=== PATIENT | male | born 1945 | race Caucasian/White ===

== ENCOUNTER 2017-09-27 21:18 | Inpatient (IN) | payer MEDICARE, BC ==
[2017-09-27] MEDS ORDERED: IBUPROFEN 600 MG TAB PO STA (21:46)
[2017-09-27] MEDS ORDERED: IPRATROPIUM-ALBUTEROL 3 ML NEB INHALATION STA (21:46)
[2017-09-27] MEDS ORDERED: ACETAMINOPHEN TAB 500 MG TAB PO STA (21:46)
[2017-09-27] MEDS ORDERED: methylPREDNISolone SOD SUCCI 125 MG/2 ML VIAL IV STA (21:46)
--- NOTE | 2017-09-27 21:51 | ED ---
General Adult HPI - General Chief complaint: Shortness of Breath Stated complaint: SOB Time Seen by Provider: 09/27/17 21:20 Source: patient, RN notes reviewed Mode of arrival: wheelchair Limitations: no limitations - History of Present Illness Initial comments: This is a 72-year-old male who presents emergency Department complaining of difficulty breathing. Patient states it started last night and got progressively worse per patient states he normally has no issues with breathing he denies any history of COPD or congestive heart failure. Patient states she did not get the flu shot this year. Patient states he has felt very hot at times and also chilled at times. Patient denies any chest pain or palpitations. Patient denies coughing up any sputum. Patient denies abdominal pain patient denies nausea vomiting diarrhea. Patient denies headache patient denies numbness weakness per patient denies lightheadedness dizziness or near syncopal episode. Patient denies any dysuria hematuria or urinary frequency. - Related Data Home Medications Medication Instructions Recorded Confirmed Allopurinol [Zyloprim] 150 mg PO DAILY 12/28/13 07/29/16 Aspirin 325 mg PO DAILY 12/28/13 07/29/16 Dorzolamide HCl 1 drop BOTH EYES BID 12/28/13 07/29/16 Ferrous Sulfate [Feosol] 325 mg PO DAILY 12/28/13 07/29/16 Latanoprost Ophth [Xalatan 0.005%] 1 drop BOTH EYES HS 12/28/13 07/29/16 Multivitamin 50 Plus 1 tab PO DAILY 12/28/13 07/29/16 Omeprazole [PriLOSEC] 20 mg PO DAILY 12/28/13 07/29/16 Simvastatin [Zocor] 80 mg PO DAILY 12/28/13 07/29/16 Timolol [Betimol 0.5% Ophth Soln] 1 drop LEFT EYE DAILY 12/28/13 07/29/16 Atenolol [Tenormin] 50 mg PO DAILY 11/11/14 07/29/16 Hydrochlorothiazide 25 mg PO DAILY 11/11/14 07/29/16 Isosorbide Mononitrate [Isosorbide 30 mg PO DAILY 11/11/14 07/29/16 Mononitrate ER] Fish Oil 3,000 mg PO DAILY 03/05/15 07/29/16 Insulin Glargine [Lantus] 25 unit SQ DAILY 03/05/15 10/04/15 Losartan [Cozaar] 25 mg PO DAILY 03/05/15 07/29/16 Insulin Glargine [Lantus] 30 unit SQ DAILY@1800 07/29/16 07/29/16 glipiZIDE [Glucotrol] 10 mg PO DAILY 07/29/16 07/29/16 Allergies Allergy/AdvReac Type Severity Reaction Status Date / Time No Known Allergies Allergy Verified 09/27/17 21:39 Review of Systems ROS Statement: Those systems with pertinent positive or pertinent negative responses have been documented in the HPI. ROS Other: All systems not noted in ROS Statement are negative. Past Medical History Past Medical History: Heart Failure, Diabetes Mellitus, GERD/Reflux, Hypertension, Myocardial Infarction ([place]), Pneumonia, Prostate Disorder, Renal Disease Additional Past Medical History / Comment(s): UTI's Last Myocardial Infarction Date:: 2004 History of Any Multi-Drug Resistant Organisms: None Reported Past Surgical History: Heart Catheterization, Pacemaker Additional Past Surgical History / Comment(s): shonna cataract surgery Past Anesthesia/Blood Transfusion Reactions: No Reported Reaction Type of Cardiac Device: Permanent Pacemaker Device Placement Date:: 12/2013 Past Psychological History: No Psychological Hx Reported Smoking Status: Former smoker Past Alcohol Use History: None Reported Past Drug Use History: None Reported - Past Family History Father Family Medical History: Coronary Artery Disease (CAD), Myocardial Infarction ([place] ) Mother Family Medical History: Diabetes Mellitus General Exam - General Exam Comments Initial Comments: GENERAL: Patient is well-developed and well-nourished. Patient is nontoxic and well- hydrated and is in mild distress. ENT: Neck is soft and supple. No significant lymphadenopathy is noted. Oropharynx is clear. Moist mucous membranes. Neck has full range of motion without eliciting any pain. EYES: The sclera were anicteric and conjunctiva were pink and moist. Extraocular movements were intact and pupils were equal round and reactive to light. Eyelids were unremarkable. PULMONARY: Patient is a very wheezing diffusely CARDIOVASCULAR: There is a regular rate and rhythm without any murmurs gallops or rubs. ABDOMEN: Soft and nontender with normal bowel sounds. No palpable organomegaly was noted. There is no palpable pulsatile mass. SKIN: Skin is clear with no lesions or rashes and otherwise unremarkable. NEUROLOGIC: Patient is alert and oriented x3. Cranial nerves II through XII are grossly intact. Motor and sensory are also intact. Normal speech, volume and content. Symmetrical smile. MUSCULOSKELETAL: Normal extremities with adequate strength and full range of motion. No lower extremity swelling or edema. No calf tenderness. LYMPHATICS: No significant lymphadenopathy is noted PSYCHIATRIC: Normal psychiatric evaluation. Normal interpersonal interactions appears functionally intact in deals appropriately with others. No signs of depression. No signs of anxiety. Limitations: no limitations Course Vital Signs 09/27/17 09/27/17 09/27/17 21:35 22:11 22:19 Temperature 102.6 F H Pulse Rate 99 93 95 Respiratory 28 H 20 18 Rate Blood Pressure 182/81 O2 Sat by Pulse 90 L Oximetry Medical Decision Making - Medical Decision Making EKG shows a paced rhythm at 101 bpm AK interval is 198 QRS is 132 QT interval 388 QTC is 503. Patient's EKG has a lot of artifact in lead V6 Chest x-ray shows a left lower lobe pneumonia. I gave the patient Levaquin. X- ray also showed some possible early pulmonary edema so the patient received 20 mg of Lasix I spoke with Dr. Rei Minaya he agreed to admit the patient admitted the patient wrote admitting orders - Lab Data Result diagrams: 09/27/17 22:07 09/27/17 22:07 Lab Results 09/27/17 09/27/17 09/27/17 Range/Units 21:49 22:07 22:07 WBC 13.5 H (3.8-10.6) k/uL RBC 4.09 L (4.30-5.90) m/uL Hgb 11.7 L (13.0-17.5) gm/dL Hct 38.2 L (39.0-53.0) % MCV 93.2 (80.0-100.0) fL MCH 28.5 (25.0-35.0) pg MCHC 30.6 L (31.0-37.0) g/dL RDW 14.5 (11.5-15.5) % Plt Count 212 (150-450) k/uL Neutrophils % 76 % Lymphocytes % 14 % Monocytes % 5 % Eosinophils % 4 % Basophils % 0 % Neutrophils # 10.2 H (1.3-7.7) k/uL Lymphocytes # 1.9 (1.0-4.8) k/uL Monocytes # 0.7 (0-1.0) k/uL Eosinophils # 0.5 (0-0.7) k/uL Basophils # 0.0 (0-0.2) k/uL PT (9.0-12.0) sec INR (<1.2) APTT (22.0-30.0) sec Sodium (137-145) mmol/L Potassium (3.5-5.1) mmol/L Chloride (98-107) mmol/L Carbon Dioxide (22-30) mmol/L Anion Gap mmol/L BUN (9-20) mg/dL Creatinine (0.66-1.25) mg/dL Est GFR (MDRD) Af Amer (>60 ml/min/1.73 sqM) Est GFR (MDRD) Non-Af (>60 ml/min/1.73 sqM) Glucose (74-99) mg/dL Plasma Lactic Acid David (0.7-2.0) mmol/L Calcium (8.4-10.2) mg/dL Total Bilirubin (0.2-1.3) mg/dL AST (17-59) U/L ALT (21-72) U/L Alkaline Phosphatase (38-126) U/L Total Creatine Kinase 73 (55-170) U/L CK-MB (CK-2) 1.8 (0.0-2.4) ng/mL CK-MB (CK-2) Rel Index 2.5 Troponin I 0.035 H* (0.000-0.034) ng/mL Total Protein (6.3-8.2) g/dL Albumin (3.5-5.0) g/dL Urine Color Light Yellow Urine Appearance Clear (Clear) Urine pH 6.5 (5.0-8.0) Ur Specific Shepherd 1.007 (1.001-1.035) Urine Protein Negative (Negative) Urine Glucose (UA) Negative (Negative) Urine Ketones Negative (Negative) Urine Blood Negative (Negative) Urine Nitrite Negative (Negative) Urine Bilirubin Negative (Negative) Urine Urobilinogen <2.0 (<2.0) mg/dL Ur Leukocyte Esterase Small H (Negative) Urine RBC 2 (0-5) /hpf Urine WBC 5 (0-5) /hpf Ur Squamous Epith Cells <1 (0-4) /hpf Urine Bacteria Moderate H (None) /hpf Influenza Type A RNA (Not Detectd) Influenza Type B (PCR) (Not Detectd) 09/27/17 09/27/17 09/27/17 Range/Units 22:07 22:07 22:07 WBC (3.8-10.6) k/uL RBC (4.30-5.90) m/uL Hgb (13.0-17.5) gm/dL Hct (39.0-53.0) % MCV (80.0-100.0) fL MCH (25.0-35.0) pg MCHC (31.0-37.0) g/dL RDW (11.5-15.5) % Plt Count (150-450) k/uL Neutrophils % % Lymphocytes % % Monocytes % % Eosinophils % % Basophils % % Neutrophils # (1.3-7.7) k/uL Lymphocytes # (1.0-4.8) k/uL Monocytes # (0-1.0) k/uL Eosinophils # (0-0.7) k/uL Basophils # (0-0.2) k/uL PT 9.5 (9.0-12.0) sec INR 1.0 (<1.2) APTT 22.5 (22.0-30.0) sec Sodium 145 (137-145) mmol/L Potassium 4.5 (3.5-5.1) mmol/L Chloride 105 (98-107) mmol/L Carbon Dioxide 28 (22-30) mmol/L Anion Gap 12 mmol/L BUN 21 H (9-20) mg/dL Creatinine 1.40 H (0.66-1.25) mg/dL Est GFR (MDRD) Af Amer >60 (>60 ml/min/1.73 sqM) Est GFR (MDRD) Non-Af 50 (>60 ml/min/1.73 sqM) Glucose 163 H (74-99) mg/dL Plasma Lactic Acid David 1.2 (0.7-2.0) mmol/L Calcium 9.3 (8.4-10.2) mg/dL Total Bilirubin 0.3 (0.2-1.3) mg/dL AST 23 (17-59) U/L ALT 40 (21-72) U/L Alkaline Phosphatase 71 (38-126) U/L Total Creatine Kinase (55-170) U/L CK-MB (CK-2) (0.0-2.4) ng/mL CK-MB (CK-2) Rel Index Troponin I (0.000-0.034) ng/mL Total Protein 6.4 (6.3-8.2) g/dL Albumin 4.1 (3.5-5.0) g/dL Urine Color Urine Appearance (Clear) Urine pH (5.0-8.0) Ur Specific Shepherd (1.001-1.035) Urine Protein (Negative) Urine Glucose (UA) (Negative) Urine Ketones (Negative) Urine Blood (Negative) Urine Nitrite (Negative) Urine Bilirubin (Negative) Urine Urobilinogen (<2.0) mg/dL Ur Leukocyte Esterase (Negative) Urine RBC (0-5) /hpf Urine WBC (0-5) /hpf Ur Squamous Epith Cells (0-4) /hpf Urine Bacteria (None) /hpf Influenza Type A RNA (Not Detectd) Influenza Type B (PCR) (Not Detectd) 09/27/17 Range/Units 22:20 WBC (3.8-10.6) k/uL RBC (4.30-5.90) m/uL Hgb (13.0-17.5) gm/dL Hct (39.0-53.0) % MCV (80.0-100.0) fL MCH (25.0-35.0) pg MCHC (31.0-37.0) g/dL RDW (11.5-15.5) % Plt Count (150-450) k/uL Neutrophils % % Lymphocytes % % Monocytes % % Eosinophils % % Basophils % % Neutrophils # (1.3-7.7) k/uL Lymphocytes # (1.0-4.8) k/uL Monocytes # (0-1.0) k/uL Eosinophils # (0-0.7) k/uL Basophils # (0-0.2) k/uL PT (9.0-12.0) sec INR (<1.2) APTT (22.0-30.0) sec Sodium (137-145) mmol/L Potassium (3.5-5.1) mmol/L Chloride (98-107) mmol/L Carbon Dioxide (22-30) mmol/L Anion Gap mmol/L BUN (9-20) mg/dL Creatinine (0.66-1.25) mg/dL Est GFR (MDRD) Af Amer (>60 ml/min/1.73 sqM) Est GFR (MDRD) Non-Af (>60 ml/min/1.73 sqM) Glucose (74-99) mg/dL Plasma Lactic Acid Davdi (0.7-2.0) mmol/L Calcium (8.4-10.2) mg/dL Total Bilirubin (0.2-1.3) mg/dL AST (17-59) U/L ALT (21-72) U/L Alkaline Phosphatase (38-126) U/L Total Creatine Kinase (55-170) U/L CK-MB (CK-2) (0.0-2.4) ng/mL CK-MB (CK-2) Rel Index Troponin I (0.000-0.034) ng/mL Total Protein (6.3-8.2) g/dL Albumin (3.5-5.0) g/dL Urine Color Urine Appearance (Clear) Urine pH (5.0-8.0) Ur Specific Shepherd (1.001-1.035) Urine Protein (Negative) Urine Glucose (UA) (Negative) Urine Ketones (Negative) Urine Blood (Negative) Urine Nitrite (Negative) Urine Bilirubin (Negative) Urine Urobilinogen (<2.0) mg/dL Ur Leukocyte Esterase (Negative) Urine RBC (0-5) /hpf Urine WBC (0-5) /hpf Ur Squamous Epith Cells (0-4) /hpf Urine Bacteria (None) /hpf Influenza Type A RNA Not Detected (Not Detectd) Influenza Type B (PCR) Not Detected (Not Detectd) Disposition Clinical Impression: Pneumonia, Bronchospasm, Acute pulmonary edema, Elevated troponin Disposition: ADMITTED IP TO THIS HOSP Referrals: Michael Cano DO [Primary Care Provider] - 1-2 days Time of Disposition: 23:12
[2017-09-27 22:30] LABS: ALT 40 U/L (21-72); AST 23 U/L (17-59); Albumin 4.1 g/dL (3.5-5.0); Alkaline Phosphatase 71 U/L (38-126); Anion Gap 12 mmol/L; Blood Urea Nitrogen 21 mg/dL (9-20); Calcium 9.3 mg/dL (8.4-10.2); Carbon Dioxide 28 mmol/L (22-30); Chloride 105 mmol/L (98-107); Glucose 163 mg/dL (74-99); Potassium 4.5 mmol/L (3.5-5.1); Sodium 145 mmol/L (137-145); Total Bilirubin 0.3 mg/dL (0.2-1.3); Total Protein 6.4 g/dL (6.3-8.2)
[2017-09-27] MEDS: SODIUM CHLORIDE 0.9% 500 ML IV SCH (22:32)
[2017-09-27 22:34] LABS: Partial Thromboplastin Time 22.5 sec (22.0-30.0); Prothrombin Time 9.5 sec (9.0-12.0)
[2017-09-27 22:46] LABS: Appearance,Urine Clear (Clear); Bacteria,Urine Moderate /hpf; Bilirubin,Urine Negative (Negative); Blood,Urine Negative (Negative); Color,Urine Light Yellow; Glucose,Urine (UA) Negative (Negative); Ketones,Urine Negative (Negative); Leukocyte Esterase,Urine Small (Negative); Nitrite,Urine Negative (Negative); PH, Urine 6.5 (5.0-8.0); Protein,Urine Negative (Negative); RBC,Urine 2 /hpf (0-5); Specific Gravity,Urine 1.007 (1.001-1.035); Squamous Epithelial Cell,Urine <1 /hpf (0-4); Urobilinogen,Urine <2.0 mg/dL (<2.0); WBC,Urine 5 /hpf (0-5)
[2017-09-27 22:48] LABS: Basophils % (A) 0 %; Eosinophils # (A) 0.5 k/uL (0-0.7); Eosinophils % (A) 4 %; HCT 38.2 % (39.0-53.0); HGB 11.7 gm/dL (13.0-17.5); Lymphocytes # (A) 1.9 k/uL (1.0-4.8); Lymphocytes % (A) 14 %; MCH 28.5 pg (25.0-35.0); MCHC 30.6 g/dL (31.0-37.0); MCV 93.2 fL (80.0-100.0); Monocytes # (A) 0.7 k/uL (0-1.0); Monocytes % (A) 5 %; Neutrophils # (A) 10.2 k/uL (1.3-7.7); Neutrophils % (A) 76 %; Platelet Count 212 k/uL (150-450); RBC 4.09 m/uL (4.30-5.90); RDW 14.5 % (11.5-15.5); WBC 13.5 k/uL (3.8-10.6)
[2017-09-27 22:53] LABS: Creatine Kinase MB 1.8 ng/mL (0.0-2.4)
[2017-09-27 22:58] LABS: Troponin I 0.035 ng/mL (0.000-0.034)
--- NOTE | 2017-09-27 23:01 | XR ---
EXAMINATION TYPE: XR chest 2V DATE OF EXAM: 09/27/2017 COMPARISON: 07/29/2016 HISTORY: Chest pain TECHNIQUE: Frontal and lateral views of the chest are obtained. FINDINGS: There is coarsening of pulmonary interstitial markings. Heart is top normal in size. There is left axillary pacemaker with the lead tips in right ventricle. There is slight blunting of left c ostophrenic angle. Thoracic aorta is atheromatous. Bony thorax is intact. IMPRESSION: There is new pulmonary interstitial edema compared to old exam and small left pleural ef fusion. This could relate to congestive heart failure. Interstitial pneumonia is possible.
[2017-09-27] MEDS ORDERED: LEVOFLOXACIN 750MG-D5W PMX 750 MG in DEXTROSE/WATER 1 150ML.BAG IVPB STA (23:10)
[2017-09-27] MEDS ORDERED: FUROSEMIDE 10 MG/ML 2 ML VIAL IV ONE (23:10)
[2017-09-27] MEDS ORDERED: PNEUMONIA PROTOCOL UTILIZED 1 EACH MISC PO PRN (23:12)
[2017-09-28 01:05] VITALS: BMI 32.2
[2017-09-28] MEDS: SODIUM CHLORIDE 0.9% 500 ML IV SCH (03:17)
[2017-09-28 06:39] LABS: Glucose,Whole Blood 297 mg/dL (75-99)
[2017-09-28] MEDS: methylPREDNISolone SOD SUCCI 125 MG/2 ML VIAL IV SCH ×2 (06:44→12:02)
--- NOTE | 2017-09-28 07:58 | XR ---
EXAMINATION TYPE: XR chest 2V DATE OF EXAM: 09/28/2017 HISTORY: pneumonia. REFERENCE: Previous study dated 09/27/2017. FINDINGS: There is a bipolar pacemaker place on the left. The lungs are overinflated. The heart is normal in size. There are diffuse increased markings. These have partially resolved. Vascular congestion has improved. I suspect a small left effusion. IMPRESSION: IMPROVING CHANGES OF CONGESTIVE HEART FAILURE.
[2017-09-28] MEDS: ATENOLOL 50 MG TAB PO SCH (08:05)
[2017-09-28] MEDS: glipiZIDE 10 MG TAB PO SCH (10:24)
[2017-09-28] MEDS: ALBUTEROL NEBULIZED 2.5 MG/3 ML INHALATION SCH ×4 (11:10→22:04)
--- NOTE | 2017-09-28 11:27 | P.CRDCN ---
History of Present Illness Consult date: 09/28/17 History of present illness: This is a 72-year-old gentleman with history of permanent pacemaker implantation , diabetes mellitus and also chronic kidney disease, hypertension and dyslipidemia who came to the hospital with complaints of shortness of breath and also fever and chills with a temperature up to 101 last night. Patient has mild cough. Denied any upper respiratory infections or congestion. Denies any chest pain. Patient is feeling much better today. His white count is mildly elevated. His troponins are mildly elevated but not consistent with acute myocardial injury pattern. His EKG showed pacemaker rhythm. Chest x-ray showed evidence of possible mild CHF. His BNP is elevated. But he seemed to be comfortable and doesn't complain of any orthopnea and proximal dyspnea. His lungs showed some diminished breath sounds at bases. Heart is regular. He is being treated for possible pneumonia. He may have mild CHF based on diastolic dysfunction . We'll get an echocardiogram done. The rest of the medication to be continued. We'll also add small dose of diuretic Past Medical History Past Medical History: Heart Failure, Diabetes Mellitus, GERD/Reflux, Hypertension, Myocardial Infarction ([place]), Pneumonia, Prostate Disorder, Renal Disease Additional Past Medical History / Comment(s): UTI's; glaucoma Last Myocardial Infarction Date:: 2004 History of Any Multi-Drug Resistant Organisms: None Reported Past Surgical History: Heart Catheterization, Pacemaker Additional Past Surgical History / Comment(s): shonna cataract surgery Past Anesthesia/Blood Transfusion Reactions: No Reported Reaction Type of Cardiac Device: Permanent Pacemaker Device Placement Date:: 12/2013 Past Psychological History: No Psychological Hx Reported Smoking Status: Former smoker Past Alcohol Use History: None Reported Past Drug Use History: None Reported - Past Family History Father Family Medical History: Coronary Artery Disease (CAD), Myocardial Infarction ([place] ) Mother Family Medical History: Diabetes Mellitus Medications and Allergies Home Medications Medication Instructions Recorded Confirmed Type Allopurinol [Zyloprim] 150 mg PO DAILY 12/28/13 09/28/17 History Aspirin 325 mg PO DAILY 12/28/13 09/28/17 History Dorzolamide HCl 1 drop BOTH EYES BID 12/28/13 09/28/17 History Ferrous Sulfate [Feosol] 648 mg PO DAILY 12/28/13 09/28/17 History Latanoprost Ophth [Xalatan 0.005%] 1 drop BOTH EYES HS 12/28/13 09/28/17 History Multivitamin 50 Plus 1 tab PO DAILY 12/28/13 09/28/17 History Omeprazole [PriLOSEC] 20 mg PO DAILY 12/28/13 09/28/17 History Simvastatin [Zocor] 80 mg PO DAILY 12/28/13 09/28/17 History Timolol [Betimol 0.5% Ophth Soln] 1 drop LEFT EYE BID 12/28/13 09/28/17 History Atenolol [Tenormin] 50 mg PO DAILY 11/11/14 09/28/17 History Hydrochlorothiazide 25 mg PO DAILY 11/11/14 09/28/17 History Isosorbide Mononitrate [Isosorbide 30 mg PO DAILY 11/11/14 09/28/17 History Mononitrate ER] Fish Oil 3,000 mg PO DAILY 03/05/15 09/28/17 History Losartan [Cozaar] 25 mg PO DAILY 03/05/15 09/28/17 History Insulin Glargine [Lantus] 40 unit SQ DAILY@1800 07/29/16 09/28/17 History glipiZIDE [Glucotrol] 10 mg PO DAILY 07/29/16 09/28/17 History glipiZIDE [Glucotrol] 5 mg PO DAILY@1800 09/28/17 09/28/17 History Allergies Allergy/AdvReac Type Severity Reaction Status Date / Time No Known Allergies Allergy Verified 09/28/17 08:17 Physical Exam Vitals: Vital Signs Temp Pulse Pulse Resp BP BP Pulse Ox 09/28/17 08:00 75 18 09/28/17 07:56 97.7 F 75 18 165/73 94 L 09/28/17 04:00 97.0 F L 80 17 158/70 92 L 09/27/17 23:53 101.7 F H 94 20 162/72 92 L 09/27/17 23:35 99.1 F 90 18 167/74 95 09/27/17 23:12 93 L 09/27/17 22:50 93 20 177/78 92 L 09/27/17 22:19 95 18 09/27/17 22:11 93 20 09/27/17 21:35 102.6 F H 99 28 H 182/81 90 L Intake and Output 0209/28/17 09/28/17 22:59 06:59 14:59 Intake Total 160 Balance 160 Intake: IV 160 0.9 @20 160 Other: Voiding Method Toilet # Voids 1 Weight 88.451 kg 96.1 kg GENERAL EXAM: Patient is alert and oriented and doesn't appear to be in any acute distress HEENT: Normocephalic. Normal reaction of pupils, equal size, normal range of extraocular motion. No erythema or exudates in the throat. NECK: No masses, no nuchal rigidity. CHEST: No chest wall deformity. LUNGS: Diminished breath sounds at bases HEART: S1 and S2 normal with no audible mumurs or gallops. Regular rhythm, femorals equal on both sides.. ABDOMEN: No hepatosplenomegaly, normal bowel sounds, no guarding or rigidity. SKIN: No rashes CENTRAL NERVOUS SYSTEM: No focal deficits. EXTREMITIES: No cyanosis, clubbing or edema. Results 09/27/17 22:07 09/27/17 22:07 Cardiac Enzymes 09/27/17 09/27/17 09/28/17 Range/Units 22:07 22:07 04:47 AST 23 (17-59) U/L CK-MB (CK-2) 1.8 (0.0-2.4) ng/mL Troponin I 0.035 H* 0.043 H* (0.000-0.034) ng/mL Coagulation 09/27/17 Range/Units 22:07 PT 9.5 (9.0-12.0) sec APTT 22.5 (22.0-30.0) sec CBC 09/27/17 Range/Units 22:07 WBC 13.5 H (3.8-10.6) k/uL RBC 4.09 L (4.30-5.90) m/uL Hgb 11.7 L (13.0-17.5) gm/dL Hct 38.2 L (39.0-53.0) % Plt Count 212 (150-450) k/uL Comprehensive Metabolic Panel 09/27/17 Range/Units 22:07 Sodium 145 (137-145) mmol/L Potassium 4.5 (3.5-5.1) mmol/L Chloride 105 (98-107) mmol/L Carbon Dioxide 28 (22-30) mmol/L BUN 21 H (9-20) mg/dL Creatinine 1.40 H (0.66-1.25) mg/dL Glucose 163 H (74-99) mg/dL Calcium 9.3 (8.4-10.2) mg/dL AST 23 (17-59) U/L ALT 40 (21-72) U/L Alkaline Phosphatase 71 (38-126) U/L Total Protein 6.4 (6.3-8.2) g/dL Albumin 4.1 (3.5-5.0) g/dL Current Medications Generic Name Dose Route Start Last Admin Trade Name Freq PRN Reason Stop Dose Admin Albuterol Sulfate 2.5 mg 09/28/17 08:00 Ventolin Nebulized INHALATION RT-QID EDITH Atenolol 50 mg 09/28/17 09:00 09/28/17 08:05 Tenormin PO 50 mg DAILY [facility] Administration Glipizide 10 mg 09/28/17 09:45 09/28/17 10:24 Glucotrol PO 10 mg [id number] [facility] Administration Glipizide 5 mg 09/28/17 18:00 Glucotrol PO DAILY@1800 [facility] Levofloxacin 750 mg/ IV 150 mls @ 100 mls/hr 09/28/17 21:00 Solution IVPB HS [facility] Insulin Aspart 0 unit 09/28/17 12:30 Novolog SQ ACHS [facility] Protocol Methylprednisolone Sodium Succinate 60 mg 09/28/17 06:00 09/28/17 06:44 Solu-Medrol IV 60 mg Q6HR [facility]ITH Administration Miscellaneous Information 1 each 09/27/17 23:12 Pneumonia Protocol Utilized PO ONCE PRN Per Protocol Intake and Output 09/27/17 09/28/17 09/28/17 22:59 06:59 14:59 Intake Total 160 Balance 160 Intake: IV 160 0.9 @20 160 Other: Voiding Method Toilet # Voids 1 Weight 88.451 kg 96.1 kg 09/27/17 22:07 09/27/17 22:07 EKG Interpretations (text) Pacemaker rhythm Assessment and Plan (1) Diastolic CHF Current Visit: Yes Status: Acute Code(s): I50.30 - UNSPECIFIED DIASTOLIC ( CONGESTIVE) HEART FAILURE SNOMED Code(s): 973195009 (2) Elevated troponin Current Visit: Yes Status: Acute Code(s): R74.8 - ABNORMAL LEVELS OF OTHER SERUM ENZYMES SNOMED Code(s): 971454992 (3) Pneumonia Current Visit: Yes Status: Acute Code(s): J18.9 - PNEUMONIA, UNSPECIFIED ORGANISM SNOMED Code(s): 762052349 Plan: I will add small dose of diuretics along with beta lucía and KEATON inhibitor hours. We'll get an echocardiogram done. We'll follow Third troponin. Continue rest of the management. Further examination depend upon the clinical course
[2017-09-28] MEDS ORDERED: FUROSEMIDE 40 MG TAB PO STA (11:38)
[2017-09-28 11:47] LABS: Glucose,Whole Blood 287 mg/dL (75-99)
[2017-09-28] MEDS ORDERED: INSULIN ASPART 100 UNIT/ML 1 ML 10 ML VIAL SQ SCH (12:30)
[2017-09-28] MEDS: ISOSORBIDE MONONITRATE ER 30 MG TAB.ER.24H PO SCH (16:20)
[2017-09-28] MEDS: HYDROCHLOROTHIAZIDE 25 MG TAB PO SCH (16:21)
[2017-09-28 17:14] LABS: Glucose,Whole Blood 372 mg/dL (75-99)
[2017-09-28] MEDS: INSULIN ASPART 100 UNIT/ML 1 ML 10 ML VIAL SQ SCH ×3 (17:17→22:26)
[2017-09-28 17:58] LABS: Hemoglobin A1C 8.8 % (4.0-6.0)
[2017-09-28] MEDS ORDERED: INSULIN DETEMIR 100 UNIT/ML 10 ML VIAL SQ SCH (18:00)
[2017-09-28] MEDS ORDERED: glipiZIDE 5 MG TAB PO SCH (18:00)
[2017-09-28] MEDS ORDERED: LEVOFLOXACIN 750MG-D5W PMX 750 MG in DEXTROSE/WATER 1 150ML.BAG IVPB SCH (21:00)
[2017-09-28] MEDS ORDERED: LATANOPROST 0.005% OPHTH DROPS 2.5 ML BTL BOTH EYES SCH (21:00)
[2017-09-28] MEDS: TIMOLOL 0.5% OPHTH DROPS 5 ML BTL LEFT EYE SCH (21:01)
[2017-09-28] MEDS: DORZOLAMIDE HCL 2% DROPS 10 ML BTL BOTH EYES SCH (21:01)
[2017-09-28 21:16] LABS: Glucose,Whole Blood 332 mg/dL (75-99)
--- NOTE | 2017-09-28 22:11 | P.HPIM ---
History of Present Illness H&P Date: 09/28/17 Chief Complaint: Shortness of breath Patient is a 72-year-old male with a known history of permanent pacemaker placement, diabetes type 2, GERD, hypertension came to ER with complaints of difficulty breathing. Patient states that his symptoms started last night and got progressively get worse which made him come to ER. Patient also developed fever and also chills at home. otherwise patient denied any chest pain. Denied any cough or sputum production. No recent travel. No sick contacts at home. Denied any nausea vomiting or abdominal pain. No headache or dizziness. No dysuria or hematuria. Chest x-ray showed evidence of mild CHF. Left pleural effusion and small and new interstitial infiltrates/edema BNP 1730. Troponin 0.035 and 0.043 No history of COPD or CHF Review of Systems Constitutional: Does not have any fever. Did have chills at times at home . No generalized weakness or weight loss. Abdomen: Patient denied nausea vomiting and diarrhea and abdominal pain. Cardiovascular: Chest pain. Shortness of breath. No leg swelling Respiratory: patient denied any cough is from production. Patient has shortness of breath Neurologic: Patient denied any numbness or tingling headache. Musculoskeletal: Patient denies any complaints of joint swelling or deformity. Skin: Negative Psychiatric: Negative Endocrine: No heat or cold intolerance. No recent weight gain. Genitourinary: No dysuria or hematuria. All other 14 point ROS negative except the above Past Medical History Past Medical History: Heart Failure, Diabetes Mellitus, GERD/Reflux, Hypertension, Myocardial Infarction ([place]), Pneumonia, Prostate Disorder, Renal Disease Additional Past Medical History / Comment(s): UTI's; glaucoma Last Myocardial Infarction Date:: 2004 History of Any Multi-Drug Resistant Organisms: None Reported Past Surgical History: Heart Catheterization, Pacemaker Additional Past Surgical History / Comment(s): shonna cataract surgery Past Anesthesia/Blood Transfusion Reactions: No Reported Reaction Type of Cardiac Device: Permanent Pacemaker Device Placement Date:: 12/2013 Past Psychological History: No Psychological Hx Reported Smoking Status: Former smoker Past Alcohol Use History: None Reported Past Drug Use History: None Reported - Past Family History Father Family Medical History: Coronary Artery Disease (CAD), Myocardial Infarction ([place] ) Mother Family Medical History: Diabetes Mellitus Medications and Allergies Home Medications Medication Instructions Recorded Confirmed Type Allopurinol [Zyloprim] 150 mg PO DAILY 12/28/13 09/28/17 History Aspirin 325 mg PO DAILY 12/28/13 09/28/17 History Dorzolamide HCl 1 drop BOTH EYES BID 12/28/13 09/28/17 History Ferrous Sulfate [Feosol] 648 mg PO DAILY 12/28/13 09/28/17 History Latanoprost Ophth [Xalatan 0.005%] 1 drop BOTH EYES HS 12/28/13 09/28/17 History Multivitamin 50 Plus 1 tab PO DAILY 12/28/13 09/28/17 History Omeprazole [PriLOSEC] 20 mg PO DAILY 12/28/13 09/28/17 History Simvastatin [Zocor] 80 mg PO DAILY 12/28/13 09/28/17 History Timolol [Betimol 0.5% Ophth Soln] 1 drop LEFT EYE BID 12/28/13 09/28/17 History Atenolol [Tenormin] 50 mg PO DAILY 11/11/14 09/28/17 History Hydrochlorothiazide 25 mg PO DAILY 11/11/14 09/28/17 History Isosorbide Mononitrate [Isosorbide 30 mg PO DAILY 11/11/14 09/28/17 History Mononitrate ER] Fish Oil 3,000 mg PO DAILY 03/05/15 09/28/17 History Losartan [Cozaar] 25 mg PO DAILY 03/05/15 09/28/17 History Insulin Glargine [Lantus] 40 unit SQ DAILY@1800 07/29/16 09/28/17 History glipiZIDE [Glucotrol] 10 mg PO DAILY 07/29/16 09/28/17 History glipiZIDE [Glucotrol] 5 mg PO DAILY@1800 09/28/17 09/28/17 History Allergies Allergy/AdvReac Type Severity Reaction Status Date / Time No Known Allergies Allergy Verified 09/28/17 08:17 Physical Exam Vitals: Vital Signs Temp Pulse Pulse Resp BP BP Pulse Ox 09/28/17 15:10 18 09/28/17 14:40 98.2 F 73 18 173/84 95 09/28/17 11:42 17 09/28/17 11:26 92 09/28/17 11:13 98.8 F 72 17 124/94 99 09/28/17 11:11 92 09/28/17 08:00 75 18 09/28/17 07:56 97.7 F 75 18 165/73 94 L 09/28/17 04:00 97.0 F L 80 17 158/70 92 L 09/27/17 23:53 101.7 F H 94 20 162/72 92 L 09/27/17 23:35 99.1 F 90 18 167/74 95 09/27/17 23:12 93 L 09/27/17 22:50 93 20 177/78 92 L 09/27/17 22:19 95 18 09/27/17 22:11 93 20 09/27/17 21:35 102.6 F H 99 28 H 182/81 90 L Intake and Output 09/28/17 09/28/17 09/28/17 06:59 14:59 22:59 Intake Total 160 480 Output Total 300 Balance 160 180 Intake: IV 160 100 0.9 @20 160 100 Intake, IV Titration 150 Amount Levofloxacin 750Mg-D5w 150 Pmx 750 mg In Dextrose/ Water 1 150ml.bag @ 100 mls/hr IVPB HS [facility] Rx#: [id number] Oral 230 Output: Urine 300 Other: Voiding Method Toilet # Voids 1 1 Weight 96.1 kg PHYSICAL EXAMINATION: Patient is lying in the bed comfortably, no acute distress, awake alert and oriented.. HEENT: Normocephalic. Neck is supple. Pupils reactive. Nostrils clear. Oral cavity is moist. Ears reveal no drainage. Neck reveals no JVD, carotid bruits, or thyromegaly. CHEST EXAMINATION: Trachea is central. Symmetrical expansion. Right basilar crackles. No wheezing. No rhonchi. CARDIAC: Normal S1, S2 with no gallops. No murmurs ABDOMEN: Soft. Bowel sounds normal. No organomegaly. No abdominal bruits. Extremities: reveal no edema. No clubbing or cyanosis Neurologically awake, alert, oriented x3 with well-coordinated movements. No focal deficits noted Skin: No rash or skin lesions. Psychiatric: Coperative. Nonsuicidal Musculoskeletal: No joint swelling or deformity. Normal range of motion. Results CBC & Chem 7: 09/27/17 22:07 09/27/17 22:07 Labs: Abnormal Lab Results - Last 24 Hours (Table) 09/27/17 09/27/17 09/27/17 Range/Units 21:49 22:07 22:07 WBC 13.5 H (3.8-10.6) k/uL RBC 4.09 L (4.30-5.90) m/uL Hgb 11.7 L (13.0-17.5) gm/dL Hct 38.2 L (39.0-53.0) % MCHC 30.6 L (31.0-37.0) g/dL Neutrophils # 10.2 H (1.3-7.7) k/uL BUN (9-20) mg/dL Creatinine (0.66-1.25) mg/dL Glucose (74-99) mg/dL POC Glucose (mg/dL) (75-99) mg/dL Troponin I 0.035 H* (0.000-0.034) ng/mL Ur Leukocyte Esterase Small H (Negative) Urine Bacteria Moderate H (None) /hpf 09/27/17 09/28/17 09/28/17 Range/Units 22:07 04:47 06:24 WBC (3.8-10.6) k/uL RBC (4.30-5.90) m/uL Hgb (13.0-17.5) gm/dL Hct (39.0-53.0) % MCHC (31.0-37.0) g/dL Neutrophils # (1.3-7.7) k/uL BUN 21 H (9-20) mg/dL Creatinine 1.40 H (0.66-1.25) mg/dL Glucose 163 H (74-99) mg/dL POC Glucose (mg/dL) 297 H (75-99) mg/dL Troponin I 0.043 H* (0.000-0.034) ng/mL Ur Leukocyte Esterase (Negative) Urine Bacteria (None) /hpf 09/28/17 Range/Units 11:35 WBC (3.8-10.6) k/uL RBC (4.30-5.90) m/uL Hgb (13.0-17.5) gm/dL Hct (39.0-53.0) % MCHC (31.0-37.0) g/dL Neutrophils # (1.3-7.7) k/uL BUN (9-20) mg/dL Creatinine (0.66-1.25) mg/dL Glucose (74-99) mg/dL POC Glucose (mg/dL) 287 H (75-99) mg/dL Troponin I (0.000-0.034) ng/mL Ur Leukocyte Esterase (Negative) Urine Bacteria (None) /hpf Microbiology - Last 24 Hours (Table) 09/27/17 21:49 Urine Culture - Preliminary Urine,Catheterized Thrombosis Risk Factor Assmnt - DVT/VTE Prophylaxis DVT/VTE Prophylaxis: Pharmacologic Prophylaxis ordered - Choose All That Apply Other Risk Factors: Yes Each Risk Factor Represents 2 Points: Age 61-74 years Other congenital or acquired thrombophilia - If yes, enter type in comment: No Thrombosis Risk Factor Assessment Total Risk Factor Score: 2 Thrombosis Risk Factor Assessment Level: Low Risk Assessment and Plan Assessment: Acute CHF with possible diastolic dysfunction. Interstitial pneumonia Elevated troponin Hypertension Diabetes type 2 History of permanent pacemaker placement GERD Glaucoma History of UTIs Plan: Patient be converted on metoprolol and lisinopril and hydrochlorothiazide. Patient was given a dose of Lasix IV. Continue with antibiotics in the form of levofloxacin. We will continue the CBC monitoring. We will discontinue IV steroids at this time. No evidence of wheezing or history of COPD. 2-D echo was ordered. Cardiology is following. Continue home medications. and further recommendations based on the critical course. Time with Patient: Greater than 30
[2017-09-29 01:25] LABS: Glucose,Whole Blood 282 mg/dL (75-99)
[2017-09-29 06:04] LABS: Glucose,Whole Blood 233 mg/dL (75-99)
[2017-09-29] MEDS: glipiZIDE 10 MG TAB PO SCH (06:41)
[2017-09-29 06:42] VITALS: RESP 16
[2017-09-29] MEDS ORDERED: PANTOPRAZOLE 40 MG TABLET PO SCH (07:30)
[2017-09-29] MEDS: ALBUTEROL NEBULIZED 2.5 MG/3 ML INHALATION SCH ×2 (08:57→12:02)
[2017-09-29] MEDS ORDERED: ATORVASTATIN 40 MG TAB PO SCH (09:00)
[2017-09-29] MEDS ORDERED: ALLOPURINOL 100 MG TAB PO SCH (09:00)
[2017-09-29] MEDS ORDERED: ASPIRIN 325 MG TAB PO SCH (09:00)
[2017-09-29] MEDS ORDERED: LOSARTAN 25 MG TAB PO SCH (09:00)
[2017-09-29] MEDS: ATENOLOL 50 MG TAB PO SCH (09:06)
[2017-09-29] MEDS: HYDROCHLOROTHIAZIDE 25 MG TAB PO SCH (09:06)
[2017-09-29] MEDS: TIMOLOL 0.5% OPHTH DROPS 5 ML BTL LEFT EYE SCH (09:07)
[2017-09-29] MEDS: DORZOLAMIDE HCL 2% DROPS 10 ML BTL BOTH EYES SCH (09:07)
[2017-09-29] MEDS: ISOSORBIDE MONONITRATE ER 30 MG TAB.ER.24H PO SCH (09:07)
[2017-09-29] MEDS: INSULIN ASPART 100 UNIT/ML 1 ML 10 ML VIAL SQ SCH ×2 (09:11→12:19)
[2017-09-29 11:52] LABS: Glucose,Whole Blood 192 mg/dL (75-99)
[2017-09-29] MEDS ORDERED: FERROUS SULFATE 325 MG TAB PO SCH (12:00)
[2017-09-29 12:12] VITALS: BP 144/68; PULSE 62; TEMP 96.6
--- NOTE | 2017-09-29 13:33 | ECHOF ---
Referral Reason:Chest pain and cardiomyopathy MEASUREMENTS -------- HEIGHT: 172.7 cm WEIGHT: 95.7 kg BP: 132/70 RVIDd: 2.9 cm (< 3.3) IVSd: 1.6 cm (0.6 - 1.1) LVIDd: 4.3 cm (3.9 - 5.3) LVPWd: 1.6 cm (0.6 - 1.1) IVSs: 2.1 cm LVIDs: 2.8 cm LVPWs: 1.8 cm LAESV Index (A-L): 35.78 ml/m Ao Diam: 3.0 cm (2.0 - 3.7) AV Cusp: 1.2 cm (1.5 - 2.6) LA Diam: 3.6 cm (2.7 - 3.8) EPSS: 0.3 cm MV E Silas: 1.17 m/s MV DecT: 213 ms MV A Silas: 0.53 m/s MV E/A Ratio: 2.19 AV maxP.53 mmHg AV meanP.37 mmHg RAP: 15.00 mmHg RVSP: 53.37 mmHg MV EF SLOPE: 83.40 mm/s (70 - 150) MV EXCURSION: 1.85 cm (> 18.000) FINDINGS -------- Pacerwire seen in RV and RA. This was a technically adequate study. The left ventricular size is normal. There is moderate concentric left ventricular hypertrophy. O verall left ventricular systolic function is normal with, an EF between 55 - 60 %. The right ventricle is mildly enlarged. LA is moderately dilated 34-39 ml/m2 RA appears enlarged. There is mild aortic valve sclerosis. There is mild aortic regurgitation. There is mild aortic st enosis present. Peak/mean gradient across the Aortic Valve is 24.53mmHg / 15.37mmHg. Mild mitral annular calcification present. Moderate mitral regurgitation is present. Alsu-cj-sizgatec tricuspid regurgitation present. There is moderate pulmonary hypertension. The r ight ventricular systolic pressure, as measured by Doppler, is 53.37mmHg. Trace/mild (physiologic) pulmonic regurgitation. The aortic root size is normal. The inferior vena cava is dilated with poor inspiratory collapse which is consistent with estimated r ight atrial pressure of 20 mmHg. There is no pericardial effusion. CONCLUSIONS -------- 1. Pacerwire seen in RV and RA. 2. This was a technically adequate study. 3. The left ventricular size is normal. 4. There is moderate concentric left ventricular hypertrophy. 5. Overall left ventricular systolic function is normal with, an EF between 55 - 60 %. 6. The right ventricle is mildly enlarged. 7. LA is moderately dilated 34-39 ml/m2 8. RA appears enlarged. 9. There is mild aortic valve sclerosis. 10. There is mild aortic regurgitation. 11. There is mild aortic stenosis present. 12. Peak/mean gradient across the Aortic Valve is 24.53mmHg / 15.37mmHg. 13. Mild mitral annular calcification present. 14. Moderate mitral regurgitation is present. 15. Bglf-hr-cepgyykq tricuspid regurgitation present. 16. There is moderate pulmonary hypertension. 17. Trace/mild (physiologic) pulmonic regurgitation. 18. The aortic root size is normal. 19. The inferior vena cava is dilated with poor inspiratory collapse which is consistent with estimat ed right atrial pressure of 20 mmHg. 20. There is no pericardial effusion. MANAGER AREA: Larry An RDCS
--- NOTE | 2017-09-29 16:23 | P.PN ---
Subjective Progress Note Date: 09/29/17 This is a 72-year-old gentleman with history of permanent pacemaker implantation , diabetes mellitus and also chronic kidney disease, hypertension and dyslipidemia who came to the hospital with complaints of shortness of breath and also fever and chills with a temperature up to 101 last night. Patient has mild cough. Denied any upper respiratory infections or congestion. Denies any chest pain. Patient is feeling much better today. His white count is mildly elevated. His troponins are mildly elevated but not consistent with acute myocardial injury pattern. His EKG showed pacemaker rhythm. Chest x-ray showed evidence of possible mild CHF. His BNP was elevated. patient was diuresed with IV Lasix, he was seen and examined this morning, feels well, denies any difficulty in breathing. He has been up ambulating without any difficulty. Echocardiogram with Doppler study was reviewed, which revealed a normal left ventricular systolic function. From cardiology's perspective, he may be able to be discharged home and to follow-up with Dr. Meyer in the office post discharge. Objective - Vital Signs Vital signs: Vital Signs Temp 96.6 F L 09/29/17 12:00 Pulse 62 09/29/17 12:00 Resp 16 09/29/17 12:00 BP 144/68 09/29/17 12:00 Pulse Ox 98 09/29/17 12:00 Intake & Output 09/28/17 09/29/17 09/29/17 18:59 06:59 18:59 Intake Total 480 630 480 Output Total 300 Balance 180 630 480 Weight 90.7 kg Intake: IV 100 0.9 @20 100 Intake, IV Titration 150 150 Amount Levofloxacin 750Mg-D5w 150 150 Pmx 750 mg In Dextrose/ Water 1 150ml.bag @ 100 mls/hr IVPB [facility] Rx#: [id number] Oral 230 480 480 Output: Urine 300 Other: Voiding Method Toilet Self-Catheterization Self-Catheterization # Voids 1 2 1 # Bowel Movements 0 - Exam GENERAL EXAM: Patient is alert and oriented and doesn't appear to be in any acute distress HEENT: Normocephalic. Normal reaction of pupils, equal size, normal range of extraocular motion. No erythema or exudates in the throat. NECK: No masses, no nuchal rigidity. CHEST: No chest wall deformity. LUNGS: Diminished breath sounds at bases HEART: S1 and S2 normal with no audible mumurs or gallops. Regular rhythm, femorals equal on both sides.. ABDOMEN: No hepatosplenomegaly, normal bowel sounds, no guarding or rigidity. SKIN: No rashes CENTRAL NERVOUS SYSTEM: No focal deficits. EXTREMITIES: No cyanosis, clubbing or edema. - Labs CBC & Chem 7: 09/27/17 22:07 09/27/17 22:07 Labs: Abnormal Lab Results - Last 24 Hours (Table) 09/27/17 09/28/17 09/28/17 Range/Units 22:07 16:49 21:15 POC Glucose (mg/dL) 372 H 332 H (75-99) mg/dL Hemoglobin A1c 8.8 H (4.0-6.0) % 09/29/17 09/29/17 09/29/17 Range/Units 01:23 05:59 11:41 POC Glucose (mg/dL) 282 H 233 H 192 H (75-99) mg/dL Hemoglobin A1c (4.0-6.0) % Microbiology - Last 24 Hours (Table) 09/27/17 21:49 Urine Culture - Preliminary Urine,Catheterized Gram Neg Bacilli 09/27/17 22:07 Blood Culture - Preliminary Blood No Growth after 24 hours Assessment and Plan Plan: Assessment and plan 1 diastolic congestive heart failure acute on chronic #2 elevated troponins, not consistent with acute coronary syndrome, likely secondary to oxygen supply and demand mismatch #3 pneumonia Plan Echocardiogram with Doppler study was performed which revealed a normal left ventricular systolic function, from cardiology's perspective he may be able to be discharged home today to follow-up in the office post discharge with Dr. Meyer. DNP note has been reviewed, I agree with a documented findings and plan of care. Patient was seen and examined.
--- NOTE | 2017-09-29 22:15 | P.DS ---
Providers Date of admission: 09/27/17 23:12 Expected date of discharge: 09/29/17 Attending physician: Christian Minaya Consults: 09/28/17 07:00 Consult Physician Routine Consulting Provider: Lázaro Lopez Consult Reason/Comments: elevated trops Do you want consulting provider notified?: Yes, Notify in am Primary care physician: Michael Cano Hospital Course: Discharge diagnosis Acute CHF with diastolic dysfunction. Interstitial pneumonia Elevated troponin. Unlikely ACS Hypertension Diabetes type 2 History of permanent pacemaker placement GERD Glaucoma History of UTIs Hospital course Patient is a 72-year-old male with a known history of permanent pacemaker placement, diabetes type 2, GERD, hypertension came to ER with complaints of difficulty breathing. Patient states that his symptoms started last night and got progressively get worse which made him come to ER. Patient also developed fever and also chills at home. otherwise patient denied any chest pain. Denied any cough or sputum production. No recent travel. No sick contacts at home. Denied any nausea vomiting or abdominal pain. No headache or dizziness. No dysuria or hematuria. Chest x-ray showed evidence of mild CHF. Left pleural effusion and small and new interstitial infiltrates/edema BNP 1730. Troponin 0.035 and 0.043 No history of COPD or CHF. No evidence of wheezing or history of COPD. 2-D echo was ordered. Showed normal ejection fraction. Patient was seen by cardiology. Patient did improve symptomatically and was continued on antibiotics in the form of levofloxacin. Otherwise patient is stable to be discharged home. Discharge physical examination was done and vitals reviewed. Patient Condition at Discharge: Fair Plan - Discharge Summary Discharge Rx Participant: No New Discharge Prescriptions: New Levofloxacin [Levaquin] 750 mg PO Q48H #2 tab Continue Omeprazole [PriLOSEC] 20 mg PO DAILY Allopurinol [Zyloprim] 150 mg PO DAILY Simvastatin [Zocor] 80 mg PO DAILY Aspirin 325 mg PO DAILY Timolol [Betimol 0.5% Ophth Soln] 1 drop LEFT EYE BID Multivitamin 50 Plus 1 tab PO DAILY Latanoprost Ophth [Xalatan 0.005%] 1 drop BOTH EYES HS Ferrous Sulfate [Feosol] 648 mg PO DAILY Dorzolamide HCl 1 drop BOTH EYES BID Hydrochlorothiazide 25 mg PO DAILY Isosorbide Mononitrate [Isosorbide Mononitrate ER] 30 mg PO DAILY Atenolol [Tenormin] 50 mg PO DAILY Losartan [Cozaar] 25 mg PO DAILY Fish Oil 3,000 mg PO DAILY glipiZIDE [Glucotrol] 10 mg PO DAILY Insulin Glargine [Lantus] 40 unit SQ DAILY@1800 glipiZIDE [Glucotrol] 5 mg PO DAILY@1800 Discharge Medication List Allopurinol [Zyloprim] 150 mg PO DAILY 12/28/13 [History] Aspirin 325 mg PO DAILY 12/28/13 [History] Dorzolamide HCl 1 drop BOTH EYES BID 12/28/13 [History] Ferrous Sulfate [Feosol] 648 mg PO DAILY 12/28/13 [History] Latanoprost Ophth [Xalatan 0.005%] 1 drop BOTH EYES HS 12/28/13 [History] Multivitamin 50 Plus 1 tab PO DAILY 12/28/13 [History] Omeprazole [PriLOSEC] 20 mg PO DAILY 12/28/13 [History] Simvastatin [Zocor] 80 mg PO DAILY 12/28/13 [History] Timolol [Betimol 0.5% Ophth Soln] 1 drop LEFT EYE BID 12/28/13 [History] Atenolol [Tenormin] 50 mg PO DAILY 11/11/14 [History] Hydrochlorothiazide 25 mg PO DAILY 11/11/14 [History] Isosorbide Mononitrate [Isosorbide Mononitrate ER] 30 mg PO DAILY 11/11/14 [ History] Fish Oil 3,000 mg PO DAILY 03/05/15 [History] Losartan [Cozaar] 25 mg PO DAILY 03/05/15 [History] Insulin Glargine [Lantus] 40 unit SQ DAILY@1800 07/29/16 [History] glipiZIDE [Glucotrol] 10 mg PO DAILY 07/29/16 [History] glipiZIDE [Glucotrol] 5 mg PO DAILY@1800 09/28/17 [History] Levofloxacin [Levaquin] 750 mg PO Q48H #2 tab 09/29/17 [Rx] Follow up Appointment(s)/Referral(s): Michael Cano DO [Primary Care Provider] - 10/08/17 3:00 pm ([facility] [phone] With Dana STEINER-only available. will move around if able to) Héctor Meyer MD [STAFF PHYSICIAN] - 10/14/17 11:15 am (Friday) Patient Instructions/Handouts: Pneumonia (DC) Discharge Disposition: HOME SELF-CARE
[2017-09-30] MEDS ORDERED: LEVOFLOXACIN 750 MG TAB PO SCH (09:00)
== END 2017-09-29 13:32 | disposition home or self-care (01) | DRG 291 ==
LOC: EC 21:18 → 6SEL 23:12
PROVIDERS: ADMIT Hospitalist; ATTEND Hospitalist
DX: I13.0 Hypertensive heart and chronic kidney disease with heart failure and stage 1 through stage 4 chronic kidney disease, or unspecified chronic kidney disease (principal); I50.33 Acute on chronic diastolic (congestive) heart failure; J84.9 Interstitial pulmonary disease, unspecified; E11.9 Type 2 diabetes mellitus without complications; E11.22 Type 2 diabetes mellitus with diabetic chronic kidney disease; K21.9 Gastro-esophageal reflux disease without esophagitis; H40.9 Unspecified glaucoma; N18.9 Chronic kidney disease, unspecified; E78.5 Hyperlipidemia, unspecified; N42.9 Disorder of prostate, unspecified; Z95.0 Presence of cardiac pacemaker; Z87.440 Personal history of urinary (tract) infections; Z79.899 Other long term (current) drug therapy; Z79.4 Long term (current) use of insulin; Z79.82 Long term (current) use of aspirin; Z83.3 Family history of diabetes mellitus; Z82.49 Family history of ischemic heart disease and other diseases of the circulatory system; Z87.891 Personal history of nicotine dependence; Z98.41 Cataract extraction status, right eye; Z98.42 Cataract extraction status, left eye; I25.2 Old myocardial infarction; Z87.01 Personal history of pneumonia (recurrent)
CPT/HCPCS: 36415; 71046; 80053; 81001; 82550; 82553; 83036; 83605; 83880; 84484; 85025; 85610; 85730; 87040; 87077; 87086; 87186; 87502; 93005; 93306; 94640; 94760; 96361; 96365; 96375; 99285

== ENCOUNTER 2017-10-12 00:09 | Observation (INO) | payer MEDICARE, BC ==
[2017-10-12 00:47] LABS: Basophils # (A) 0.1 k/uL (0-0.2); Basophils % (A) 1 %; Eosinophils # (A) 0.6 k/uL (0-0.7); Eosinophils % (A) 5 %; HCT 38.3 % (39.0-53.0); HGB 11.5 gm/dL (13.0-17.5); Hypochromasia Slight; Lymphocytes # (A) 2.3 k/uL (1.0-4.8); Lymphocytes % (A) 21 %; MCH 28.3 pg (25.0-35.0); MCHC 30.1 g/dL (31.0-37.0); MCV 94.1 fL (80.0-100.0); Mean Platelet Volume 8.3; Monocytes # (A) 0.5 k/uL (0-1.0); Monocytes % (A) 4 %; Neutrophils # (A) 7.2 k/uL (1.3-7.7); Neutrophils % (A) 67 %; Platelet Count 292 k/uL (150-450); RBC 4.07 m/uL (4.30-5.90); RDW 14.1 % (11.5-15.5); WBC 10.7 k/uL (3.8-10.6)
--- NOTE | 2017-10-12 00:48 | ED ---
General Adult HPI - General Chief complaint: Arrhythmia/Palpitations Stated complaint: Funny feeling in pacemaker Time Seen by Provider: 10/12/17 00:23 Source: patient, RN notes reviewed, old records reviewed Mode of arrival: ambulatory Limitations: no limitations - History of Present Illness Initial comments: 72-year-old male presents for evaluation of palpitations, patient states he had a crawling, fluttering sensation in his chest lasted less than 1 minute. Patient does have pacemaker which is been present for the past 4 years. He states he has never had a sensation like this before. Denies any pain in his chest, arms, or jaw. Denies any difficulty breathing. Patient had recent hospital admission with pneumonia and fluid overload. He states symptoms of dyspnea have resolved. Denies any lower extremity swelling. Denies any abdominal pain nausea or vomiting. Patient is asymptomatic at the time my evaluation. - Related Data Home Medications Medication Instructions Recorded Confirmed Allopurinol [Zyloprim] 150 mg PO DAILY 12/28/13 09/28/17 Aspirin 325 mg PO DAILY 12/28/13 09/28/17 Dorzolamide HCl 1 drop BOTH EYES BID 12/28/13 09/28/17 Ferrous Sulfate [Feosol] 648 mg PO DAILY 12/28/13 09/28/17 Latanoprost Ophth [Xalatan 0.005%] 1 drop BOTH EYES HS 12/28/13 09/28/17 Multivitamin 50 Plus 1 tab PO DAILY 12/28/13 09/28/17 Omeprazole [PriLOSEC] 20 mg PO DAILY 12/28/13 09/28/17 Simvastatin [Zocor] 80 mg PO DAILY 12/28/13 09/28/17 Timolol [Betimol 0.5% Ophth Soln] 1 drop LEFT EYE BID 12/28/13 09/28/17 Atenolol [Tenormin] 50 mg PO DAILY 11/11/14 09/28/17 Hydrochlorothiazide 25 mg PO DAILY 11/11/14 09/28/17 Isosorbide Mononitrate [Isosorbide 30 mg PO DAILY 11/11/14 09/28/17 Mononitrate ER] Fish Oil 3,000 mg PO DAILY 03/05/15 09/28/17 Losartan [Cozaar] 25 mg PO DAILY 03/05/15 09/28/17 Insulin Glargine [Lantus] 40 unit SQ DAILY@1800 07/29/16 09/28/17 glipiZIDE [Glucotrol] 10 mg PO DAILY 07/29/16 09/28/17 glipiZIDE [Glucotrol] 5 mg PO DAILY@1800 09/28/17 09/28/17 Previous Rx's Medication Instructions Recorded Levofloxacin [Levaquin] 750 mg PO Q48H #2 tab 09/29/17 Allergies Allergy/AdvReac Type Severity Reaction Status Date / Time No Known Allergies Allergy Verified 10/12/17 00:19 Review of Systems ROS Statement: Those systems with pertinent positive or pertinent negative responses have been documented in the HPI. ROS Other: All systems not noted in ROS Statement are negative. Past Medical History Past Medical History: Heart Failure, Diabetes Mellitus, GERD/Reflux, Hypertension, Myocardial Infarction (MD), Pneumonia, Prostate Disorder, Renal Disease Additional Past Medical History / Comment(s): UTI's; glaucoma, pacemaker Last Myocardial Infarction Date:: 2004 History of Any Multi-Drug Resistant Organisms: None Reported Past Surgical History: Heart Catheterization, Pacemaker Additional Past Surgical History / Comment(s): shonna cataract surgery, Past Anesthesia/Blood Transfusion Reactions: No Reported Reaction Type of Cardiac Device: Permanent Pacemaker Device Placement Date:: 12/2013 Past Psychological History: No Psychological Hx Reported Smoking Status: Former smoker Past Alcohol Use History: None Reported Past Drug Use History: None Reported - Past Family History Father Family Medical History: Coronary Artery Disease (CAD), Myocardial Infarction (MD ) Mother Family Medical History: Diabetes Mellitus General Exam Limitations: no limitations General appearance: alert, in no apparent distress Head exam: Present: atraumatic, normocephalic Eye exam: Present: normal appearance, PERRL ENT exam: Present: normal exam Neck exam: Present: normal inspection. Absent: tenderness, meningismus Respiratory exam: Present: normal lung sounds bilaterally. Absent: respiratory distress, wheezes Cardiovascular Exam: Present: regular rate, irregular rhythm GI/Abdominal exam: Present: soft. Absent: distended, tenderness Extremities exam: Present: normal inspection, normal capillary refill. Absent: pedal edema Neurological exam: Present: alert, oriented X3, CN II-XII intact. Absent: motor sensory deficit Psychiatric exam: Present: normal affect, normal mood Skin exam: Present: warm, dry, intact. Absent: cyanosis, diaphoretic Course Vital Signs 10/12/17 00:13 Temperature 99.0 F Pulse Rate 71 Respiratory 18 Rate Blood Pressure 174/75 O2 Sat by Pulse 96 Oximetry EKG Findings - EKG Comments: EKG Findings:: Wide-complex rhythm, ventricular rate 78, castration 152, QTC 506 , there is some pacemaker activity, with underlying arrhythmia, no acute ischemic changes. Previous EKG reviewed from September 27 shows atrial sensed ventricular paced rhythm similar morphology. Medical Decision Making - Medical Decision Making 72-year-old male presenting with palpitations. EKG shows a regular wide complex rhythm, there is some pacemaker activity. Blood pressure is stable. This EKG is compared to previous, previous patient had initial sensed ventricular paced rhythm. Pacemaker is interrogated, results are pending. Patient will be placed in observation for telemetry and cardiology evaluation. Laboratory studies reviewed, creatinine 1.3 from recent baseline 1.4, normal white blood cell count, stable hemoglobin 11.5. Chest x-ray shows clearing of previous oral effusion, no acute findings. - Lab Data Result diagrams: 10/12/17 00:30 10/12/17 00:30 Lab Results 10/12/17 10/12/17 10/12/17 Range/Units 00:30 00:30 00:30 WBC 10.7 H (3.8-10.6) k/uL RBC 4.07 L (4.30-5.90) m/uL Hgb 11.5 L (13.0-17.5) gm/dL Hct 38.3 L (39.0-53.0) % MCV 94.1 (80.0-100.0) fL MCH 28.3 (25.0-35.0) pg MCHC 30.1 L (31.0-37.0) g/dL RDW 14.1 (11.5-15.5) % Plt Count 292 (150-450) k/uL Neutrophils % 67 % Lymphocytes % 21 % Monocytes % 4 % Eosinophils % 5 % Basophils % 1 % Neutrophils # 7.2 (1.3-7.7) k/uL Lymphocytes # 2.3 (1.0-4.8) k/uL Monocytes # 0.5 (0-1.0) k/uL Eosinophils # 0.6 (0-0.7) k/uL Basophils # 0.1 (0-0.2) k/uL Hypochromasia Slight PT (9.0-12.0) sec INR (<1.2) APTT (22.0-30.0) sec Sodium 142 (137-145) mmol/L Potassium 4.1 (3.5-5.1) mmol/L Chloride 104 (98-107) mmol/L Carbon Dioxide 24 (22-30) mmol/L Anion Gap 14 mmol/L BUN 38 H (9-20) mg/dL Creatinine 1.30 H (0.66-1.25) mg/dL Est GFR (MDRD) Af Amer >60 (>60 ml/min/1.73 sqM) Est GFR (MDRD) Non-Af 54 (>60 ml/min/1.73 sqM) Glucose 200 H (74-99) mg/dL Calcium 9.6 (8.4-10.2) mg/dL Magnesium 1.8 (1.6-2.3) mg/dL Total Bilirubin 0.2 (0.2-1.3) mg/dL AST 24 (17-59) U/L ALT 21 (21-72) U/L Alkaline Phosphatase 70 (38-126) U/L Total Creatine Kinase 41 L (55-170) U/L CK-MB (CK-2) 1.6 (0.0-2.4) ng/mL CK-MB (CK-2) Rel Index 3.9 Troponin I 0.013 (0.000-0.034) ng/mL Total Protein 6.0 L (6.3-8.2) g/dL Albumin 3.8 (3.5-5.0) g/dL 10/12/17 Range/Units 00:30 WBC (3.8-10.6) k/uL RBC (4.30-5.90) m/uL Hgb (13.0-17.5) gm/dL Hct (39.0-53.0) % MCV (80.0-100.0) fL MCH (25.0-35.0) pg MCHC (31.0-37.0) g/dL RDW (11.5-15.5) % Plt Count (150-450) k/uL Neutrophils % % Lymphocytes % % Monocytes % % Eosinophils % % Basophils % % Neutrophils # (1.3-7.7) k/uL Lymphocytes # (1.0-4.8) k/uL Monocytes # (0-1.0) k/uL Eosinophils # (0-0.7) k/uL Basophils # (0-0.2) k/uL Hypochromasia PT 9.5 (9.0-12.0) sec INR 0.9 (<1.2) APTT 22.1 (22.0-30.0) sec Sodium (137-145) mmol/L Potassium (3.5-5.1) mmol/L Chloride (98-107) mmol/L Carbon Dioxide (22-30) mmol/L Anion Gap mmol/L BUN (9-20) mg/dL Creatinine (0.66-1.25) mg/dL Est GFR (MDRD) Af Amer (>60 ml/min/1.73 sqM) Est GFR (MDRD) Non-Af (>60 ml/min/1.73 sqM) Glucose (74-99) mg/dL Calcium (8.4-10.2) mg/dL Magnesium (1.6-2.3) mg/dL Total Bilirubin (0.2-1.3) mg/dL AST (17-59) U/L ALT (21-72) U/L Alkaline Phosphatase (38-126) U/L Total Creatine Kinase (55-170) U/L CK-MB (CK-2) (0.0-2.4) ng/mL CK-MB (CK-2) Rel Index Troponin I (0.000-0.034) ng/mL Total Protein (6.3-8.2) g/dL Albumin (3.5-5.0) g/dL Disposition Clinical Impression: Atrial fibrillation, Malfunction of cardiac pacemaker Disposition: ADMITTED IP TO THIS [facility] Condition: Stable Referrals: Michael Cano DO [Primary Care Provider] - 1-2 days Decision to Admit Reason: Admit from EC Decision Date: 10/12/17 Decision Time: 02:19
[2017-10-12 00:56] LABS: ALT 21 U/L (21-72); AST 24 U/L (17-59); Albumin 3.8 g/dL (3.5-5.0); Alkaline Phosphatase 70 U/L (38-126); Anion Gap 14 mmol/L; Blood Urea Nitrogen 38 mg/dL (9-20); Calcium 9.6 mg/dL (8.4-10.2); Carbon Dioxide 24 mmol/L (22-30); Chloride 104 mmol/L (98-107); Glucose 200 mg/dL (74-99); Potassium 4.1 mmol/L (3.5-5.1); Sodium 142 mmol/L (137-145); Total Bilirubin 0.2 mg/dL (0.2-1.3)
--- NOTE | 2017-10-12 00:58 | XR ---
EXAMINATION TYPE: XR chest 2V DATE OF EXAM: 10/12/2017 COMPARISON: 09/28/2017 HISTORY: Dysrhythmia TECHNIQUE: Frontal and lateral views of the chest are obtained. FINDINGS: Heart is normal. Lungs are clear of consolidation. Thoracic aorta is atheromatous. There i s left axillary pacemaker with the lead tips in the right ventricle. There are chest leads. Bony thor ax is intact. IMPRESSION: No active cardiopulmonary disease. No heart failure. There is clearing of small pleural effusions compared to old exam.
[2017-10-12 01:30] LABS: INR 0.9 (<1.2); Partial Thromboplastin Time 22.1 sec (22.0-30.0); Prothrombin Time 9.5 sec (9.0-12.0)
[2017-10-12 01:32] LABS: Creatine Kinase MB 1.6 ng/mL (0.0-2.4); Troponin I 0.013 ng/mL (0.000-0.034)
[2017-10-12] MEDS ORDERED: NALOXONE 0.4 MG/ML 1 ML VIAL IV PRN (02:13)
[2017-10-12 03:26] LABS: Glucose,Whole Blood 204 mg/dL (75-99)
[2017-10-12 03:29] VITALS: RESP 16
[2017-10-12 04:08] VITALS: BMI 30.6
[2017-10-12 06:54] LABS: Glucose,Whole Blood 299 mg/dL (75-99)
[2017-10-12] MEDS ORDERED: ATENOLOL 50 MG TAB PO SCH (09:00)
[2017-10-12] MEDS ORDERED: LOSARTAN 25 MG TAB PO SCH (09:00)
[2017-10-12] MEDS ORDERED: HYDROCHLOROTHIAZIDE 25 MG TAB PO SCH (09:00)
[2017-10-12] MEDS ORDERED: ISOSORBIDE MONONITRATE ER 30 MG TAB.ER.24H PO SCH (09:00)
[2017-10-12] MEDS ORDERED: ATORVASTATIN 40 MG TAB PO SCH (09:00)
[2017-10-12] MEDS ORDERED: ASPIRIN 325 MG TAB PO SCH (09:00)
[2017-10-12] MEDS ORDERED: FERROUS SULFATE 325 MG TAB PO SCH (09:00)
[2017-10-12] MEDS ORDERED: LOSARTAN 50 MG TAB PO SCH (10:00)
[2017-10-12 11:54] LABS: Glucose,Whole Blood 200 mg/dL (75-99)
[2017-10-12 12:16] VITALS: BP 137/66; PULSE 65; TEMP 97.9
--- NOTE | 2017-10-12 15:12 | CONS ---
CONSULTATION This is a 72-year-old gentleman with a known history of some AV block, has a permanent pacemaker. This gentleman came into the hospital because he felt a very strange sensation on the left lateral aspect of his chest as if some tingling feeling along the pacemaker under his skin and then felt some fluttering sensation in the chest and came into the hospital. He was found to be in sinus rhythm with some paced beats and also some isolated PVCs. However, he is now in a nice sinus rhythm with underlying left bundle resting comfortably. Denies any chest pain, wishes to go home. This gentleman sees Dr. Meyer in the outpatient setting. He indicates to me that his pacemaker was checked for several months ago. He was actually in the hospital for the same episode of palpitations on 09/28/17, was seen by Dr. Lopez. He came in with elevated temperature. His BNP was slightly up. He was placed on a small dose of diuretics and he was discharged. He gets his medications at the [facility] and he is now on the Lasix according to the patient. However, he has no symptoms this morning. The palpitations have resolved. There was evidence of isolated PVCs, but his electrolyte profile was good. He has no further symptoms. His pacemaker seems to be functioning well looking at the strips. I am recommending that he can be discharged and followed up in the office by Dr. Meyer and also have a device check. PAST MEDICAL HISTORY: Past medical history includes diastolic heart failure, type 2 diabetes, hypertension, hyperlipidemia, and also AV block with a permanent pacemaker. ALLERGIES: Are none. MEDICATIONS: These include losartan 25 mg daily, hydrochlorothiazide 25 mg daily, atenolol 50 mg daily, Imdur 30 mg daily, and insulin and glipizide 10 mg daily. Simvastatin at 80 mg daily, omeprazole 20 mg daily. Apparently this patient switched over from hydrochlorothiazide to Lasix in the last few days at the [facility] in [place]. Echocardiogram that was performed on 09/29/2017 revealed good systolic function with evidence of moderate pulmonary hypertension with right-sided pressures in the range of 50 mmHg with mild gradient across the aortic valve. EXAMINATION: Blood pressure is 130/70, pulse rate is 70 per minute, regular. HEENT unremarkable. Fundus was not examined by me. NECK: Supple. There is JVD of 1 cm. No carotid bruit. Heart exam reveals S1, S2 with ejection systolic murmur and preserved second heart sound. Lungs are clear. Abdomen is soft, nontender. Lower extremities reveal normal pulses. No edema. Central nervous system is normal. EKG revealed a sinus mechanism with left bundle. Previous EKG revealed some intermittent PVCs and underlying paced beats. IMPRESSION: 1. Palpitations, probably isolated PVCs. 2. Some amount of anxiety. 3. History of diastolic failure. 4. History of AV block and permanent pacemaker. 5. Type 2 diabetes mellitus. RECOMMENDATIONS: I am recommending that he can be discharged today. I advised him to see Dr. Meyer in the office next week and we can check his device also at that time. Advised to continue the same medications and possibly consider taking Lasix every other day since creatinine is 1.3 today. MMODL / IJN: [id number] /
[2017-10-12] MEDS ORDERED: INSULIN DETEMIR 100 UNIT/ML 10 ML VIAL SQ SCH (18:00)
--- NOTE | 2017-10-13 09:28 | HP ---
HISTORY AND PHYSICAL HISTORY AND PHYSICAL AND DISCHARGE SUMMARY DATE OF SERVICE: 10/12/2017 CHIEF COMPLAINT: Arrhythmia, palpitation and funny feeling in the pacemaker. HISTORY OF PRESENT ILLNESS: This 72-year-old gentleman with a past medical history of multiple medical problems including history of CHF, history of diabetes mellitus, history of GERD, hypertension, history of myocardial infarction, history of renal disease, UTI, history of cardiac catheterization, pacemaker being for Dr. Cano in the outpatient setting is complaining of palpitations. The patient had a chronic fluttering sensation. The patient does have a pacemaker and the patient came to [facility] and was found to have PVCs and was admitted for further evaluation and treatment. There is no history of fever, rigors. No history of headache, loss of consciousness or seizures. Cardiology evaluation in progress at this time. Pacemaker interrogation has been recommended. PAST MEDICAL HISTORY: History of pacemaker, history of diabetes mellitus type 2, history of CHF, history of pneumonia, history of renal disease, UTI. MEDICATIONS: Mediations prior to admission, home medications are prior to admission include: 1. Glucotrol 5 mg p.o. daily and Glucotrol 10 mg p.o. daily. 2. Timolol 1 drop left eye b.i.d. 3. Zocor 80 mg daily. 4. Prilosec 20 mg daily. 5. Multivitamins one p.o. daily. 6. Xalatan 0.005% one drop q.h.s. 7. Imdur ER 30 mg p.o. daily. 8. Lantus 40 units subcu daily. 9. Fish oil daily. 10.Iron sulfate 648 p.o. daily. 11.Dorzolamide 1 drop both eyes b.i.d. 12.Tenormin 50 mg p.o. daily. 13.Aspirin 325 mg daily. 14.Zyloprim 150 mg. 15.Potassium 99 mg p.o. daily. 16.Lasix 20 mg p.o. daily. 17.Cozaar 25 mg p.o. daily. ALLERGIES: Allergies are none. FAMILY HISTORY: History of coronary artery disease and myocardial infarction in the family. SOCIAL HISTORY: No history of current smoking, previous history of smoking. No history of alcohol intake. REVIEW OF SYSTEMS: ENT: No diminished hearing or diminished vision. CARDIOVASCULAR SYSTEM: No angina or palpitations. RESPIRATORY SYSTEM: As mentioned earlier. GI: No nausea, vomiting. : No dysuria. NERVOUS SYSTEM: No numbness or weakness. ALLERGY/IMMUNOLOGY: No history of asthma or hayfever. MUSCULOSKELETAL: As mentioned earlier. HEMATOLOGY/ONCOLOGY: No history of anemia. ENDOCRINE: Diabetes mellitus. CONSTITUTIONAL: As mentioned earlier. DERMATOLOGY: Negative. RHEUMATOLOGY; Negative. PSYCHIATRY: As mentioned earlier. PHYSICAL EXAMINATION: The patient is alert and oriented x3. Pulse 65, blood pressure 137/66, respirations 16, temperature 97.9, pulse ox 96% on room air. HEENT: Conjunctivae normal. Oral mucosa moist. Neck is no jugular venous distention. No carotid bruit. No lymph node enlargement. CARDIOVASCULAR: S1 and S2 muffled. RESPIRATORY; Breath sounds diminished at the bases. No rhonchi. No crackles. ABDOMEN: Soft, nontender. No mass palpable. LEGS: No edema, no swelling. NERVOUS SYSTEM: Higher functions as mentioned earlier. Moves all 4 limbs. No focal deficits. LYMPHATICS: No lymphadenopathy of the neck, axillae or groin. SKIN: No ulcer, rash or bleeding. LABS: WBC 10.7, hemoglobin 11.5. Creatinine 1.3. ASSESSMENT: 1. Palpitations, possible premature ventricular contractions. 2. Increased WBC. 3. Anemia. 4. Increased creatinine with chronic kidney disease stage 3. 5. Diabetes mellitus type 2. 6. Gastroesophageal reflux disease. 7. Hypertension. 8. History of pneumonia. 9. History of prostate disorder. 10.History of cardiac catheterization. 11.History of permanent pacemaker. 12.Remote history of nicotine dependence. RECOMMENDATIONS AND DISCUSSION: In this 72-year-old gentleman who presented with multiple complex medical issues , at this time patient medically stable. Cardiology evaluated the patient, recommended close outpatient setting. 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 The medications were reviewed and I would recommend to resume the same medications and Cardiology recommended to increase the home dose of Cozaar from 25 mg to 50 mg p.o. daily. Please see medication reconciliation for detailed history of orders. MMODL / IJN: [id number] / MTDD
== END 2017-10-12 13:13 | disposition home or self-care (01) ==
LOC: EC 00:09 → 3OBS 02:13
PROVIDERS: ADMIT Hospitalist; ATTEND Hospitalist
DX: R00.2 Palpitations (principal); Z95.0 Presence of cardiac pacemaker; I44.30 Unspecified atrioventricular block; F41.9 Anxiety disorder, unspecified; D72.829 Elevated white blood cell count, unspecified; I13.0 Hypertensive heart and chronic kidney disease with heart failure and stage 1 through stage 4 chronic kidney disease, or unspecified chronic kidney disease; N18.3 Chronic kidney disease, stage 3 (moderate); I50.30 Unspecified diastolic (congestive) heart failure; E11.22 Type 2 diabetes mellitus with diabetic chronic kidney disease; I27.20 Pulmonary hypertension, unspecified; D64.9 Anemia, unspecified; K21.9 Gastro-esophageal reflux disease without esophagitis; N42.9 Disorder of prostate, unspecified; H40.9 Unspecified glaucoma; E78.5 Hyperlipidemia, unspecified; I25.2 Old myocardial infarction; Z87.891 Personal history of nicotine dependence; Z87.01 Personal history of pneumonia (recurrent); Z79.82 Long term (current) use of aspirin; Z79.4 Long term (current) use of insulin; Z79.899 Other long term (current) drug therapy; Z83.3 Family history of diabetes mellitus; Z82.49 Family history of ischemic heart disease and other diseases of the circulatory system
CPT/HCPCS: 36415; 93005; 80053; 82550; 82553; 83735; 84484; 85025; 85610; 85730; 71046; 99285; G0378

== ENCOUNTER 2017-11-19 02:21 | Inpatient (IN) | payer MEDICARE, BC ==
[2017-11-19] MEDS ORDERED: KETOROLAC 30 MG/ML 1 ML VIAL IVP STA (02:33)
[2017-11-19] MEDS ORDERED: IPRATROPIUM-ALBUTEROL 3 ML NEB INHALATION STA (02:33)
[2017-11-19] MEDS ORDERED: SODIUM CHLORIDE 0.9% 1,000 ML IV STA ×2 (02:33)
[2017-11-19] MEDS ORDERED: ACETAMINOPHEN IV (For NPO) 1,000 MG in EMPTY BAG 1 BAG IVPB STA (02:33)
--- NOTE | 2017-11-19 02:49 | ED ---
General Adult HPI - General Chief complaint: Shortness of Breath Stated complaint: JACQUES Time Seen by Provider: 11/19/17 02:33 Source: patient, EMS, RN notes reviewed, old records reviewed Mode of arrival: EMS Limitations: no limitations - History of Present Illness Initial comments: This is a 72-year-old male the ER for evaluation of shortness of breath. Significant shortness of breath. History of heart failure. Known fever. Diaphoresis, no chest pain patient's brought in by EMS for severe shortness of breath. Patient also notes that he has began fever. He does have recent hospital admission for pneumonia. No chest pain symptoms started suddenly tonight developed progress - Related Data Home Medications Medication Instructions Recorded Confirmed Allopurinol [Zyloprim] 150 mg PO DAILY 12/28/13 11/19/17 Aspirin 325 mg PO DAILY 12/28/13 11/19/17 Dorzolamide HCl 1 drop BOTH EYES BID 12/28/13 11/19/17 Ferrous Sulfate [Feosol] 648 mg PO DAILY 12/28/13 11/19/17 Latanoprost Ophth [Xalatan 0.005%] 1 drop BOTH EYES HS 12/28/13 11/19/17 Omeprazole [PriLOSEC] 20 mg PO DAILY 12/28/13 11/19/17 Timolol [Betimol 0.5% Ophth Soln] 1 drop LEFT EYE BID 12/28/13 11/19/17 Atenolol [Tenormin] 25 mg PO DAILY 11/11/14 11/19/17 Isosorbide Mononitrate [Isosorbide 30 mg PO DAILY 11/11/14 11/19/17 Mononitrate ER] Insulin Glargine [Lantus] 40 unit SQ DAILY@1800 07/29/16 11/19/17 glipiZIDE [Glucotrol] 10 mg PO DAILY 07/29/16 11/19/17 Fish Oil/Dha/Epa [Fish Oil 1,200 1 cap PO DAILY 10/12/17 11/19/17 mg Fish Oil] Multivitamins, Thera [Multivitamin 1 tab PO DAILY 10/12/17 11/19/17 (formulary)] Potassium 99 mg PO DAILY 10/12/17 11/19/17 Simvastatin [Zocor] 80 mg PO DAILY 10/12/17 11/19/17 Hydrochlorothiazide 25 mg PO DAILY 11/19/17 11/19/17 Previous Rx's Medication Instructions Recorded Losartan [Cozaar] 50 mg PO DAILY tab 10/12/17 Allergies Allergy/AdvReac Type Severity Reaction Status Date / Time No Known Allergies Allergy Verified 10/12/17 08:36 Review of Systems ROS Statement: Those systems with pertinent positive or pertinent negative responses have been documented in the HPI. ROS Other: All systems not noted in ROS Statement are negative. Past Medical History Past Medical History: Heart Failure, Diabetes Mellitus, GERD/Reflux, Hypertension, Myocardial Infarction ([place]), Pneumonia, Prostate Disorder, Renal Disease Additional Past Medical History / Comment(s): UTI's; glaucoma, pacemaker Last Myocardial Infarction Date:: 2004 History of Any Multi-Drug Resistant Organisms: None Reported Past Surgical History: Heart Catheterization, Pacemaker Additional Past Surgical History / Comment(s): shonna cataract surgery, Past Anesthesia/Blood Transfusion Reactions: No Reported Reaction Type of Cardiac Device: Permanent Pacemaker Device Placement Date:: 12/2013 Past Psychological History: No Psychological Hx Reported Smoking Status: Former smoker Past Alcohol Use History: None Reported Past Drug Use History: None Reported - Past Family History Father Family Medical History: Coronary Artery Disease (CAD), Myocardial Infarction ([place] ) Mother Family Medical History: Diabetes Mellitus General Exam Limitations: no limitations General appearance: alert, in no apparent distress Head exam: Present: atraumatic, normocephalic, normal inspection Eye exam: Present: normal appearance, PERRL, EOMI. Absent: scleral icterus, conjunctival injection, periorbital swelling ENT exam: Present: normal exam, mucous membranes moist Neck exam: Present: normal inspection. Absent: tenderness, meningismus, lymphadenopathy Respiratory exam: Present: respiratory distress, rales, accessory muscle use, decreased breath sounds, prolonged expiratory. Absent: wheezes, rhonchi, stridor Cardiovascular Exam: Present: normal rhythm, tachycardia, normal heart sounds. Absent: systolic murmur, diastolic murmur, rubs, gallop, clicks GI/Abdominal exam: Present: soft, normal bowel sounds. Absent: distended, tenderness, guarding, rebound, rigid Extremities exam: Present: normal inspection, full ROM, normal capillary refill. Absent: tenderness, pedal edema, joint swelling, calf tenderness Back exam: Present: normal inspection Neurological exam: Present: alert, oriented X3, CN II-XII intact Psychiatric exam: Present: normal affect, normal mood Skin exam: Present: warm, dry, intact, normal color. Absent: rash Course Vital Signs 11/19/17 11/19/17 11/19/17 02:23 02:43 02:58 Temperature 100.8 F H Pulse Rate 109 H 107 H 108 H Respiratory 22 Rate Blood Pressure 170/97 O2 Sat by Pulse 94 L Oximetry - Reevaluation(s) Reevaluation #1: 11/19/17 03:32 Real improvement after prolonged breathing treatment, patient does have continued shortness of breath with low pulse ox EKG Findings - EKG Comments: EKG Findings:: EKG shows paced rhythm rate of 113, QRS 150, QTc 518 Medical Decision Making - Medical Decision Making 72 male the ER for evaluation shortness breath cough congestion. Patient will be admitted for diarrhea recent is, monitoring of pulse ox and cardiopulmonary status. - Lab Data Result diagrams: 11/19/17 02:30 11/19/17 02:30 Lab Results 11/19/17 11/19/17 11/19/17 Range/Units 02:30 02:30 02:30 WBC 16.8 H (3.8-10.6) k/uL RBC 4.11 L (4.30-5.90) m/uL Hgb 11.9 L (13.0-17.5) gm/dL Hct 37.5 L (39.0-53.0) % MCV 91.3 (80.0-100.0) fL MCH 28.9 (25.0-35.0) pg MCHC 31.7 (31.0-37.0) g/dL RDW 14.9 (11.5-15.5) % Plt Count 243 (150-450) k/uL Neutrophils % 67 % Lymphocytes % 22 % Monocytes % 5 % Eosinophils % 4 % Basophils % 0 % Neutrophils # 11.3 H (1.3-7.7) k/uL Lymphocytes # 3.7 (1.0-4.8) k/uL Monocytes # 0.8 (0-1.0) k/uL Eosinophils # 0.7 (0-0.7) k/uL Basophils # 0.1 (0-0.2) k/uL Hypochromasia Slight PT (9.0-12.0) sec INR (<1.2) APTT (22.0-30.0) sec Sodium 145 (137-145) mmol/L Potassium 4.0 (3.5-5.1) mmol/L Chloride 104 (98-107) mmol/L Carbon Dioxide 25 (22-30) mmol/L Anion Gap 16 mmol/L BUN 25 H (9-20) mg/dL Creatinine 1.40 H (0.66-1.25) mg/dL Est GFR (CKD-EPI)AfAm 57 (>60 ml/min/1.73 sqM) Est GFR (CKD-EPI)NonAf 49 (>60 ml/min/1.73 sqM) Glucose 139 H (74-99) mg/dL Calcium 9.4 (8.4-10.2) mg/dL Magnesium 1.7 (1.6-2.3) mg/dL Total Bilirubin 0.6 (0.2-1.3) mg/dL AST 24 (17-59) U/L ALT 31 (21-72) U/L Alkaline Phosphatase 71 (38-126) U/L Total Creatine Kinase 93 (55-170) U/L Total Protein 6.4 (6.3-8.2) g/dL Albumin 4.0 (3.5-5.0) g/dL Influenza Type A RNA (Not Detectd) Influenza Type B (PCR) (Not Detectd) 11/19/17 11/19/17 Range/Units 02:30 02:30 WBC (3.8-10.6) k/uL RBC (4.30-5.90) m/uL Hgb (13.0-17.5) gm/dL Hct (39.0-53.0) % MCV (80.0-100.0) fL MCH (25.0-35.0) pg MCHC (31.0-37.0) g/dL RDW (11.5-15.5) % Plt Count (150-450) k/uL Neutrophils % % Lymphocytes % % Monocytes % % Eosinophils % % Basophils % % Neutrophils # (1.3-7.7) k/uL Lymphocytes # (1.0-4.8) k/uL Monocytes # (0-1.0) k/uL Eosinophils # (0-0.7) k/uL Basophils # (0-0.2) k/uL Hypochromasia PT 10.1 (9.0-12.0) sec INR 1.0 (<1.2) APTT 23.1 (22.0-30.0) sec Sodium (137-145) mmol/L Potassium (3.5-5.1) mmol/L Chloride (98-107) mmol/L Carbon Dioxide (22-30) mmol/L Anion Gap mmol/L BUN (9-20) mg/dL Creatinine (0.66-1.25) mg/dL Est GFR (CKD-EPI)AfAm (>60 ml/min/1.73 sqM) Est GFR (CKD-EPI)NonAf (>60 ml/min/1.73 sqM) Glucose (74-99) mg/dL Calcium (8.4-10.2) mg/dL Magnesium (1.6-2.3) mg/dL Total Bilirubin (0.2-1.3) mg/dL AST (17-59) U/L ALT (21-72) U/L Alkaline Phosphatase (38-126) U/L Total Creatine Kinase (55-170) U/L Total Protein (6.3-8.2) g/dL Albumin (3.5-5.0) g/dL Influenza Type A RNA Not Detected (Not Detectd) Influenza Type B (PCR) Not Detected (Not Detectd) - Radiology Data Radiology results: report reviewed (X-ray is positive for CHF), image reviewed Critical Care Time Critical Care Time: Yes Total Critical Care Time: 31 Disposition Clinical Impression: Congestive heart failure, Acute respiratory failure, Atrial fibrillation, Acute pulmonary edema, Community acquired pneumonia Disposition: ADMITTED IP TO THIS HOSP Condition: Fair Referrals: [facility] [Primary Care Provider] - 1-2 days
[2017-11-19 02:58] LABS: Basophils # (A) 0.1 k/uL (0-0.2); Basophils % (A) 0 %; Eosinophils # (A) 0.7 k/uL (0-0.7); Eosinophils % (A) 4 %; HCT 37.5 % (39.0-53.0); HGB 11.9 gm/dL (13.0-17.5); Hypochromasia Slight; Lymphocytes # (A) 3.7 k/uL (1.0-4.8); Lymphocytes % (A) 22 %; MCH 28.9 pg (25.0-35.0); MCHC 31.7 g/dL (31.0-37.0); MCV 91.3 fL (80.0-100.0); Mean Platelet Volume 9.1; Monocytes # (A) 0.8 k/uL (0-1.0); Monocytes % (A) 5 %; Neutrophils # (A) 11.3 k/uL (1.3-7.7); Neutrophils % (A) 67 %; Platelet Count 243 k/uL (150-450); RBC 4.11 m/uL (4.30-5.90); RDW 14.9 % (11.5-15.5); WBC 16.8 k/uL (3.8-10.6)
[2017-11-19 03:07] LABS: Partial Thromboplastin Time 23.1 sec (22.0-30.0); Prothrombin Time 10.1 sec (9.0-12.0)
[2017-11-19 03:13] LABS: Calcium 9.4 mg/dL (8.4-10.2); Magnesium 1.7 mg/dL (1.6-2.3); Total Bilirubin 0.6 mg/dL (0.2-1.3); Total Protein 6.4 g/dL (6.3-8.2)
--- NOTE | 2017-11-19 03:16 | XR ---
EXAMINATION TYPE: XR chest 2V DATE OF EXAM: 11/19/2017 COMPARISON: 10/12/2017 HISTORY: Difficulty breathing TECHNIQUE: Frontal and lateral views of the chest are obtained. FINDINGS: There is pulmonary vascular congestion and pulmonary edema. Thoracic aorta is atheromatous . There are chest leads. There is left axillary pacemaker with the lead tips over the right ventricle . IMPRESSION: There is new pulmonary edema compared to last exam and consistent with heart failure. Pn eumonia is possible.
[2017-11-19] MEDS ORDERED: PIPERACILLIN-TAZOBACTAM 3.375 GM in DEXTROSE/WATER 1 50ML.BAG IVPB STA (03:26)
[2017-11-19] MEDS ORDERED: AZITHROMYCIN 500 MG in SODIUM CHLORIDE 0.9% 250 ML IVPB STA (03:26)
[2017-11-19] MEDS ORDERED: PNEUMONIA PROTOCOL UTILIZED 1 EACH MISC PO PRN (03:26)
[2017-11-19] MEDS ORDERED: cefTRIAXone IN SWFI 1,000 MG/10 ML SYRINGE IVP STA (03:26)
[2017-11-19] MEDS ORDERED: ASPIRIN 325 MG TAB PO STA (03:26)
[2017-11-19] MEDS ORDERED: FUROSEMIDE 10 MG/ML 4 ML VIAL IV SCH ×2 (03:30→12:00)
[2017-11-19 03:33] LABS: Creatine Kinase MB 2.1 ng/mL (0.0-2.4); Troponin I 0.025 ng/mL (0.000-0.034)
[2017-11-19] MEDS: SODIUM CHLORIDE 0.9% 1,000 ML IV SCH (03:49)
[2017-11-19 05:57] LABS: Glucose,Whole Blood 257 mg/dL (75-99)
[2017-11-19] MEDS ORDERED: PIPERACILLIN-TAZOBACTAM 3.375 GM in DEXTROSE/WATER 1 50ML.BAG IVPB SCH (08:00)
[2017-11-19] MEDS: IPRATROPIUM-ALBUTEROL 3 ML NEB INHALATION SCH ×4 (08:35→20:19)
--- NOTE | 2017-11-19 09:03 | P.CRDCN ---
History of Present Illness Consult date: 11/19/17 Chief complaint: Shortness of breath History of present illness: This is a pleasant 72-year-old gentleman who sees Dr. Rodriguez in the office as an outpatient with a past medical history significant for permanent pacemaker, diabetes, hypertension, and dyslipidemia presented to the emergency room complaining of shortness of breath. The patient was in his usual state of health until last night when he was sleeping and woke up complaining of shortness of breath. It seems to be of sudden onset. He felt that he is almost lost his consciousness. No chest pain and no chest discomfort. 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 No history of coronary artery disease or coronary artery vascularization. The EKG showed ventricular paced rhythm. The chest x-ray showed findings consistent with CHF. The BNP came in to be around 200. No d-dimer was checked. The patient underwent an echocardiogram in August 2017 and that revealed normal LV function with mild aortic stenosis. On physical examination he does have very significant murmur consistent with more than mild aortic stenosis. Lung examination revealed bilateral rhonchi. Currently the patient is on Lasix IV. Past Medical History Past Medical History: Heart Failure, Diabetes Mellitus, GERD/Reflux, Hypertension, Pneumonia, Prostate Disorder, Renal Disease Additional Past Medical History / Comment(s): UTI's; glaucoma, pacemaker Last Myocardial Infarction Date:: 2004 History of Any Multi-Drug Resistant Organisms: None Reported Past Surgical History: Heart Catheterization, Pacemaker Additional Past Surgical History / Comment(s): shonna cataract surgery, Past Anesthesia/Blood Transfusion Reactions: No Reported Reaction Type of Cardiac Device: Permanent Pacemaker Device Placement Date:: 12/2013 Smoking Status: Former smoker - Past Family History Father Family Medical History: Coronary Artery Disease (CAD), Myocardial Infarction ([place] ) Mother Family Medical History: Diabetes Mellitus Medications and Allergies Home Medications Medication Instructions Recorded Confirmed Type Allopurinol [Zyloprim] 150 mg PO DAILY 12/28/13 11/19/17 History Aspirin 325 mg PO DAILY 12/28/13 11/19/17 History Dorzolamide HCl 1 drop BOTH EYES BID 12/28/13 11/19/17 History Ferrous Sulfate [Feosol] 648 mg PO DAILY 12/28/13 11/19/17 History Latanoprost Ophth [Xalatan 0.005%] 1 drop BOTH EYES HS 12/28/13 11/19/17 History Timolol [Betimol 0.5% Ophth Soln] 1 drop LEFT EYE BID 12/28/13 11/19/17 History Atenolol [Tenormin] 25 mg PO DAILY 11/11/14 11/19/17 History Isosorbide Mononitrate [Isosorbide 30 mg PO DAILY 11/11/14 11/19/17 History Mononitrate ER] Insulin Glargine [Lantus] 40 unit SQ DAILY@1800 07/29/16 11/19/17 History glipiZIDE [Glucotrol] 10 mg PO DAILY 07/29/16 11/19/17 History Fish Oil/Dha/Epa [Fish Oil 1,200 1 cap PO DAILY 10/12/17 11/19/17 History mg Fish Oil] Losartan [Cozaar] 50 mg PO DAILY tab 10/12/17 11/19/17 Rx Multivitamins, Thera [Multivitamin 1 tab PO DAILY 10/12/17 11/19/17 History (formulary)] Potassium 99 mg PO DAILY 10/12/17 11/19/17 History Simvastatin [Zocor] 80 mg PO DAILY 10/12/17 11/19/17 History Hydrochlorothiazide 25 mg PO DAILY 11/19/17 11/19/17 History Omeprazole 20 mg PO DAILY 11/19/17 11/19/17 History Allergies Allergy/AdvReac Type Severity Reaction Status Date / Time No Known Allergies Allergy Verified 11/19/17 08:50 Physical Exam Vitals: Vital Signs Temp Pulse Pulse Pulse Resp BP BP 11/19/17 08:57 97.3 F L 80 16 135/60 11/19/17 08:50 88 11/19/17 08:37 82 11/19/17 05:27 97.6 F 87 87 18 129/61 11/19/17 04:03 98.5 F 94 18 118/58 11/19/17 03:48 95 11/19/17 02:58 108 H 11/19/17 02:43 107 H 11/19/17 02:23 100.8 F H 109 H 22 170/97 Pulse Ox 11/19/17 08:57 96 11/19/17 08:50 11/19/17 08:37 11/19/17 05:27 93 L 11/19/17 04:03 92 L 11/19/17 03:48 95 11/19/17 02:58 11/19/17 02:43 11/19/17 02:23 94 L Intake and Output 11/18/17 11/19/17 11/19/17 22:59 06:59 14:59 Output Total 450 Balance -450 Output: Urine 450 Other: Voiding Method Self-Catheterization # Voids 0 Weight 91.8 kg - Constitutional General appearance: no acute distress - Respiratory Respiratory: bilateral: rhonchi - Cardiovascular Rhythm: regular Heart sounds: normal: S1 Abnormal Heart Sounds: systolic murmur Results 11/19/17 02:30 11/19/17 02:30 Cardiac Enzymes 11/19/17 11/19/17 Range/Units 02:30 02:30 AST 24 (17-59) U/L CK-MB (CK-2) 2.1 (0.0-2.4) ng/mL Troponin I 0.025 (0.000-0.034) ng/mL Coagulation 11/19/17 Range/Units 02:30 PT 10.1 (9.0-12.0) sec APTT 23.1 (22.0-30.0) sec CBC 11/19/17 Range/Units 02:30 WBC 16.8 H (3.8-10.6) k/uL RBC 4.11 L (4.30-5.90) m/uL Hgb 11.9 L (13.0-17.5) gm/dL Hct 37.5 L (39.0-53.0) % Plt Count 243 (150-450) k/uL Comprehensive Metabolic Panel 11/19/17 Range/Units 02:30 Sodium 145 (137-145) mmol/L Potassium 4.0 (3.5-5.1) mmol/L Chloride 104 (98-107) mmol/L Carbon Dioxide 25 (22-30) mmol/L BUN 25 H (9-20) mg/dL Creatinine 1.40 H (0.66-1.25) mg/dL Glucose 139 H (74-99) mg/dL Calcium 9.4 (8.4-10.2) mg/dL AST 24 (17-59) U/L ALT 31 (21-72) U/L Alkaline Phosphatase 71 (38-126) U/L Total Protein 6.4 (6.3-8.2) g/dL Albumin 4.0 (3.5-5.0) g/dL Current Medications Generic Name Dose Route Start Last Admin Trade Name Freq PRN Reason Stop Dose Admin Albuterol/Ipratropium 3 ml 11/19/17 08:00 11/19/17 08:35 Duoneb 0.5 Mg-3 Mg/3 Ml Soln INHALATION 3 ml RT-QID EDITH Administration Aspirin 325 mg 11/20/17 09:00 Aspirin PO DAILY [facility] Azithromycin 500 mg 11/20/17 09:00 Zithromax PO DAILY [facility] Ceftriaxone Sodium 1,000 mg 11/20/17 09:00 Rocephin IVP 11/23/17 09:01 Q24HR [facility] Enoxaparin Sodium 40 mg 11/19/17 09:00 Lovenox SQ DAILY [facility] Furosemide 40 mg 11/19/17 12:00 Lasix IV Q8H [facility] Glipizide 10 mg 11/19/17 07:30 Glucotrol PO AC-BRKFST [facility] Sodium Chloride 1,000 mls @ 100 mls/hr 11/19/17 02:33 11/19/17 03:02 Saline 0.9% IV 11/19/17 12:32 100 mls/hr .Q10H STA Administration Sodium Chloride 1,000 mls @ 20 mls/hr 11/19/17 03:30 11/19/17 03:49 Saline 0.9% IV 20 mls/hr .Q24H EDITH Administration Insulin Detemir 40 unit 11/19/17 18:00 Levemir SQ DAILY@1800 EDITH Miscellaneous Information 1 each 11/19/17 03:26 Pneumonia Protocol Utilized PO ONCE PRN Per Protocol Intake and Output 11/18/17 11/19/17 11/19/17 22:59 06:59 14:59 Output Total 450 Balance -450 Output: Urine 450 Other: Voiding Method Self-Catheterization # Voids 0 Weight 91.8 kg 11/19/17 02:30 11/19/17 02:30 Assessment and Plan Assessment: Assessment #1 shortness of breath. #2 mild congestive heart failure exacerbation #3 possible pneumonia #4 permanent pacemaker Plan #1 PE to be ruled out. I will obtain a d-dimer. #2 continue the IV Lasix for additional 24 hours #3 he just underwent an echo in August 2017 and that revealed normal LV function was mild valvular abnormalities #4 follow-up with the patient. Thank you for allowing us but participate in his care and we'll continue following up with him
[2017-11-19] MEDS: glipiZIDE 10 MG TAB PO SCH (09:43)
[2017-11-19] MEDS: ENOXAPARIN 40 MG/0.4 ML SYRINGE SQ SCH (09:43)
[2017-11-19 09:56] VITALS: BMI 30.7
--- NOTE | 2017-11-19 11:23 | NM ---
EXAMINATION TYPE: NM pul vent and perfuse DATE OF EXAM: 11/19/2017 COMPARISON: 01/27/2014 and recent radiographs same day HISTORY: TECHNIQUE: Utilizing inhalation of 67.5 mCi Tc 99m DTPA aerosol and intravenous injection of 5.02 mC i of Tc 99m MAA, ventilation and perfusion images are acquired post injection in multiple projections . FINDINGS: Moderate-sized fixed segmental defect posterior left midlung. Otherwise, homogeneous perfusion throug hout the lungs. IMPRESSION: Intermediate probability for pulmonary embolism based on modified PIOPED criteria.
[2017-11-19 11:43] LABS: Glucose,Whole Blood 334 mg/dL (75-99)
--- NOTE | 2017-11-19 12:42 | P.HPIM ---
History of Present Illness 72-year-old gentleman came in with complains of shortness of breath restarted yesterday denied any orthopnea PND patient doesn't have any history of congestive heart failure does follow with cardiology as an outpatient. Patient does have an AICD. Patient had a low-grade fever with leukocytosis chest x-ray did show diffuse infiltrate consistent with pulmonary edema although BNP is not elevated patient does have minimally elevated JVD is complaining of cough with whitish sputum production d-dimer was opted by cardiology and they did a VQ scan which is intermediate property although my suspicion is low for PE will obtain a bilateral lower limb Doppler. Patient will not be started on any anti- correlation patient is on Rocephin and azithromycin for community acquired pneumonia patient may have atypical pneumonia. Review of Systems REVIEW OF SYSTEMS: CONSTITUTIONAL: No fever, no malaise, no fatigue. HEENT: No recent visual problems or hearing problems. Denied any sore throat. CARDIOVASCULAR: No chest pain, orthopnea, PND, no palpitations, no syncope. PULMONARY: She in HPI GASTROINTESTINAL: No diarrhea, no nausea, no vomiting, no abdominal pain. Normoactive bowel sounds. NEUROLOGICAL: No headaches, no weakness, no numbness. HEMATOLOGICAL: Denies any bleeding or petechiae. GENITOURINARY: Denies any burning micturition, frequency, or urgency. MUSCULOSKELETAL/RHEUMATOLOGICAL: Denies any joint pain, swelling, or any muscle pain. ENDOCRINE: Denies any polyuria or polydipsia. The rest of the 14-point review of systems is negative. Past Medical History Past Medical History: Heart Failure, Diabetes Mellitus, GERD/Reflux, Hypertension, Pneumonia, Prostate Disorder, Renal Disease Additional Past Medical History / Comment(s): UTI's; glaucoma, pacemaker Last Myocardial Infarction Date:: 2004 History of Any Multi-Drug Resistant Organisms: None Reported Past Surgical History: Heart Catheterization, Pacemaker Additional Past Surgical History / Comment(s): shonna cataract surgery, Past Anesthesia/Blood Transfusion Reactions: No Reported Reaction Type of Cardiac Device: Permanent Pacemaker Device Placement Date:: 12/2013 Smoking Status: Former smoker - Past Family History Father Family Medical History: Coronary Artery Disease (CAD), Myocardial Infarction ([place] ) Mother Family Medical History: Diabetes Mellitus Medications and Allergies Home Medications Medication Instructions Recorded Confirmed Type Allopurinol [Zyloprim] 150 mg PO DAILY 12/28/13 11/19/17 History Aspirin 325 mg PO DAILY 12/28/13 11/19/17 History Dorzolamide HCl 1 drop BOTH EYES BID 12/28/13 11/19/17 History Ferrous Sulfate [Feosol] 648 mg PO DAILY 12/28/13 11/19/17 History Latanoprost Ophth [Xalatan 0.005%] 1 drop BOTH EYES HS 12/28/13 11/19/17 History Timolol [Betimol 0.5% Ophth Soln] 1 drop LEFT EYE BID 12/28/13 11/19/17 History Atenolol [Tenormin] 25 mg PO DAILY 11/11/14 11/19/17 History Isosorbide Mononitrate [Isosorbide 30 mg PO DAILY 11/11/14 11/19/17 History Mononitrate ER] Insulin Glargine [Lantus] 40 unit SQ DAILY@1800 07/29/16 11/19/17 History glipiZIDE [Glucotrol] 10 mg PO DAILY 07/29/16 11/19/17 History Fish Oil/Dha/Epa [Fish Oil 1,200 1 cap PO DAILY 10/12/17 11/19/17 History mg Fish Oil] Losartan [Cozaar] 50 mg PO DAILY tab 10/12/17 11/19/17 Rx Multivitamins, Thera [Multivitamin 1 tab PO DAILY 10/12/17 11/19/17 History (formulary)] Potassium 99 mg PO DAILY 10/12/17 11/19/17 History Simvastatin [Zocor] 80 mg PO DAILY 10/12/17 11/19/17 History Hydrochlorothiazide [Hydrodiuril] 25 mg PO DAILY 11/19/17 11/19/17 History Omeprazole 20 mg PO DAILY 11/19/17 11/19/17 History Allergies Allergy/AdvReac Type Severity Reaction Status Date / Time No Known Allergies Allergy Verified 11/19/17 08:50 Physical Exam Vitals: Vital Signs Temp Pulse Pulse Pulse Resp BP BP 11/19/17 11:26 80 16 151/69 11/19/17 11:25 16 11/19/17 08:57 97.3 F L 80 16 135/60 11/19/17 08:50 88 16 11/19/17 08:37 82 11/19/17 05:27 97.6 F 87 87 18 129/61 11/19/17 04:03 98.5 F 94 18 118/58 11/19/17 03:48 95 11/19/17 02:58 108 H 11/19/17 02:43 107 H 11/19/17 02:23 100.8 F H 109 H 22 170/97 Pulse Ox 11/19/17 11:26 98 11/19/17 11:25 11/19/17 08:57 96 11/19/17 08:50 11/19/17 08:37 11/19/17 05:27 93 L 11/19/17 04:03 92 L 11/19/17 03:48 95 11/19/17 02:58 11/19/17 02:43 11/19/17 02:23 94 L Intake and Output 11/18/17 11/19/17 11/19/17 22:59 06:59 14:59 Output Total 450 Balance -450 Output: Urine 450 Other: Voiding Method Self-Catheterization Self-Catheterization # Voids 0 Weight 91.8 kg 91.8 kg PHYSICAL EXAMINATION: GENERAL: The patient is alert and oriented x3, not in any acute distress. Well developed, well nourished. HEENT: Pupils are round and equally reacting to light. EOMI. No scleral icterus. No conjunctival pallor. Normocephalic, atraumatic. No pharyngeal erythema. No thyromegaly. CARDIOVASCULAR: S1 and S2 present. No murmurs, rubs, or gallops. has elevated JVD PULMONARY: Chest is clear to auscultation, no wheezing or crackles. ABDOMEN: Soft, nontender, nondistended, normoactive bowel sounds. No palpable organomegaly. MUSCULOSKELETAL: No joint swelling or deformity. EXTREMITIES: No cyanosis, clubbing, or pedal edema. NEUROLOGICAL: Gross neurological examination did not reveal any focal deficits. SKIN: No rashes. Results CBC & Chem 7: 11/19/17 02:30 11/19/17 02:30 Labs: Abnormal Lab Results - Last 24 Hours (Table) 11/19/17 11/19/17 11/19/17 Range/Units 02:30 02:30 05:54 WBC 16.8 H (3.8-10.6) k/uL RBC 4.11 L (4.30-5.90) m/uL Hgb 11.9 L (13.0-17.5) gm/dL Hct 37.5 L (39.0-53.0) % Neutrophils # 11.3 H (1.3-7.7) k/uL D-Dimer (<0.60) mg/L FEU BUN 25 H (9-20) mg/dL Creatinine 1.40 H (0.66-1.25) mg/dL Glucose 139 H (74-99) mg/dL POC Glucose (mg/dL) 257 H (75-99) mg/dL Troponin I (0.000-0.034) ng/mL 11/19/17 11/19/17 11/19/17 Range/Units 09:25 09:25 11:41 WBC (3.8-10.6) k/uL RBC (4.30-5.90) m/uL Hgb (13.0-17.5) gm/dL Hct (39.0-53.0) % Neutrophils # (1.3-7.7) k/uL D-Dimer 1.43 H (<0.60) mg/L FEU BUN (9-20) mg/dL Creatinine (0.66-1.25) mg/dL Glucose (74-99) mg/dL POC Glucose (mg/dL) 334 H (75-99) mg/dL Troponin I 0.219 H* (0.000-0.034) ng/mL Thrombosis Risk Factor Assmnt - Choose All That Apply Each Risk Factor Represents 2 Points: Age 61-74 years Thrombosis Risk Factor Assessment Total Risk Factor Score: 2 Thrombosis Risk Factor Assessment Level: Low Risk Assessment and Plan Plan: -Shortness of breath: Acute hypoxic respiratory failure unsure of the etiology patient is being treated for CHF his EF was normal patient may have chronic diastolic dysfunction with acute exacerbation patient had fever leukocytosis patient is also being treated for healthcare associated pneumonia with the Zosyn and is the mycin. Cardiology and pulmonology were consulted patient had intermediate probable VQ scan but my suspicion is low for PE. We'll obtain bilateral lower limb Doppler. 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
[2017-11-19] MEDS: INSULIN ASPART 100 UNIT/ML 1 ML 10 ML VIAL SQ SCH ×3 (12:44→21:11)
[2017-11-19] MEDS: ISOSORBIDE MONONITRATE ER 30 MG TAB.ER.24H PO SCH (13:09)
[2017-11-19] MEDS: ATENOLOL 25 MG TAB PO SCH (13:09)
--- NOTE | 2017-11-19 14:57 | P.CNPUL ---
History of Present Illness Consult date: 11/19/17 Requesting physician: Christian Minaya Reason for consult: dyspnea, abnormal CXR/CT Chief complaint: Shortness of breath, cough, congestion History of present illness: This is a very pleasant 72-year-old gentleman who follows with [facility] for his primary care needs. He has a history of diabetes mellitus, hyperlipidemia, hypertension, gout and a complete heart block status post permanent pacemaker implantation, diastolic congestive heart failure, aortic stenosis. He presented here early this morning with complaints of increasing shortness of breath that came on rather suddenly and awoke him from sleep. He also felt as though he had a fever. No chest pain, palpitations lightheadedness or dizziness. Positive diaphoresis. He was recently discharged in September 2017 following a episode of diastolic congestive heart failure. Chest x-ray showed evidence of pulmonary edema. VQ scan reveals an immediate probability for pulmonary embolism in the left midlung. Initially requiring 6 L high flow nasal cannula to maintain O2 saturations in the 90s. Temp 100.8. White count 16.8. Hemoglobin 11.9. Creatinine 1.40. Troponin 0.025, 0.219. ProBNP 265. Influenza screen negative. He is seen today in consultation on the selective care unit. He is currently awake and alert in no acute distress. He states his breathing has improved as the day goes on. He denies any worsening shortness of breath, cough or congestion. He is dyspneic on exertion. He is currently afebrile. Maintaining good O2 saturations in the upper 90s on 2 L/m per nasal cannula. Hemodynamically stable. His been initiated on bronchodilators, antibiotics in the form of ceftriaxone and azithromycin. He's been started on Lasix 40 mg IV push every 12 hours. Review of Systems Constitutional: Reports fatigue Eyes: denies blurred vision, denies decreased vision Ears: deny: decreased hearing Ears, nose, mouth and throat: Denies headache, Denies sore throat Cardiovascular: Reports dyspnea on exertion, Reports shortness of breath Respiratory: Reports dyspnea Gastrointestinal: Denies abdominal pain, Denies diarrhea, Denies nausea, Denies vomiting Genitourinary: Reports as per HPI Musculoskeletal: Denies myalgias Integumentary: Denies pruritus, Denies rash Neurological: Denies numbness, Denies weakness Psychiatric: Denies anxiety, Denies depression Endocrine: Denies fatigue, Denies weight change Past Medical History Past Medical History: Heart Failure, Diabetes Mellitus, GERD/Reflux, Hypertension, Pneumonia, Prostate Disorder, Renal Disease Additional Past Medical History / Comment(s): UTI's; glaucoma, pacemaker Last Myocardial Infarction Date:: 2004 History of Any Multi-Drug Resistant Organisms: None Reported Past Surgical History: Heart Catheterization, Pacemaker Additional Past Surgical History / Comment(s): shonna cataract surgery, Past Anesthesia/Blood Transfusion Reactions: No Reported Reaction Type of Cardiac Device: Permanent Pacemaker Device Placement Date:: 12/2013 Smoking Status: Former smoker - Past Family History Father Family Medical History: Coronary Artery Disease (CAD), Myocardial Infarction ([place] ) Mother Family Medical History: Diabetes Mellitus Medications and Allergies Home Medications Medication Instructions Recorded Confirmed Type Allopurinol [Zyloprim] 150 mg PO DAILY 12/28/13 11/19/17 History Aspirin 325 mg PO DAILY 12/28/13 11/19/17 History Dorzolamide HCl 1 drop BOTH EYES BID 12/28/13 11/19/17 History Ferrous Sulfate [Feosol] 648 mg PO DAILY 12/28/13 11/19/17 History Latanoprost Ophth [Xalatan 0.005%] 1 drop BOTH EYES HS 12/28/13 11/19/17 History Timolol [Betimol 0.5% Ophth Soln] 1 drop LEFT EYE BID 12/28/13 11/19/17 History Atenolol [Tenormin] 25 mg PO DAILY 11/11/14 11/19/17 History Isosorbide Mononitrate [Isosorbide 30 mg PO DAILY 11/11/14 11/19/17 History Mononitrate ER] Insulin Glargine [Lantus] 40 unit SQ DAILY@1800 07/29/16 11/19/17 History glipiZIDE [Glucotrol] 10 mg PO DAILY 07/29/16 11/19/17 History Fish Oil/Dha/Epa [Fish Oil 1,200 1 cap PO DAILY 10/12/17 11/19/17 History mg Fish Oil] Losartan [Cozaar] 50 mg PO DAILY tab 10/12/17 11/19/17 Rx Multivitamins, Thera [Multivitamin 1 tab PO DAILY 10/12/17 11/19/17 History (formulary)] Potassium 99 mg PO DAILY 10/12/17 11/19/17 History Simvastatin [Zocor] 80 mg PO DAILY 10/12/17 11/19/17 History Hydrochlorothiazide [Hydrodiuril] 25 mg PO DAILY 11/19/17 11/19/17 History Omeprazole 20 mg PO DAILY 11/19/17 11/19/17 History Allergies Allergy/AdvReac Type Severity Reaction Status Date / Time No Known Allergies Allergy Verified 11/19/17 08:50 Physical Exam Vitals: Vital Signs Temp Pulse Pulse Pulse Resp BP BP 11/19/17 11:26 80 16 151/69 11/19/17 11:25 16 11/19/17 08:57 97.3 F L 80 16 135/60 11/19/17 08:50 88 16 11/19/17 08:37 82 11/19/17 05:27 97.6 F 87 87 18 129/61 11/19/17 04:03 98.5 F 94 18 118/58 11/19/17 03:48 95 11/19/17 02:58 108 H 11/19/17 02:43 107 H 11/19/17 02:23 100.8 F H 109 H 22 170/97 Pulse Ox 11/19/17 11:26 98 11/19/17 11:25 11/19/17 08:57 96 11/19/17 08:50 11/19/17 08:37 11/19/17 05:27 93 L 11/19/17 04:03 92 L 11/19/17 03:48 95 11/19/17 02:58 11/19/17 02:43 11/19/17 02:23 94 L Intake and Output 11/18/17 11/19/17 11/19/17 22:59 06:59 14:59 Intake Total 240 Output Total 450 Balance -450 240 Intake: Oral 240 Output: Urine 450 Other: Voiding Method Self-Catheterization Self-Catheterization # Voids 0 Weight 91.8 kg 91.8 kg GENERAL EXAM: Alert, active, comfortable in no apparent distress. HEAD: Normocephalic. EYES: Normal reaction of pupils, equal size. NOSE: Clear with pink turbinates. THROAT: No erythema or exudates. NECK: No masses, no JVD. CHEST: No chest wall deformity. LUNGS: Equal air entry with faint crackles in bilateral posterior bases CVS: S1 and S2 normal with an audible murmur, regular rhythm. ABDOMEN: No hepatosplenomegaly, normal bowel sounds, no guarding or rigidity. SPINE: No scoliosis or deformity SKIN: No rashes CENTRAL NERVOUS SYSTEM: No focal deficits, tone is normal in all 4 extremities. EXTREMITIES: There is no peripheral edema. No clubbing, no cyanosis. Peripheral pulses are intact. Results - Laboratory Findings CBC and BMP: 11/19/17 02:30 11/19/17 02:30 PT/INR, D-dimer PT 10.1 sec (9.0-12.0) 11/19/17 02:30 INR 1.0 (<1.2) 11/19/17 02:30 D-Dimer 1.43 mg/L FEU (<0.60) H 11/19/17 09:25 Abnormal lab findings: Abnormal Labs 11/19/17 11/19/17 11/19/17 02:30 02:30 05:54 WBC 16.8 H RBC 4.11 L Hgb 11.9 L Hct 37.5 L Neutrophils # 11.3 H D-Dimer BUN 25 H Creatinine 1.40 H Glucose 139 H POC Glucose (mg/dL) 257 H Troponin I 11/19/17 11/19/17 11/19/17 09:25 09:25 11:41 WBC RBC Hgb Hct Neutrophils # D-Dimer 1.43 H BUN Creatinine Glucose POC Glucose (mg/dL) 334 H Troponin I 0.219 H* - Diagnostic Findings Chest x-ray: image reviewed Assessment and Plan Assessment: Impression: #1 Acute hypoxic respiratory failure secondary to an acute exacerbation of diastolic congestive heart failure, possible healthcare acquired pneumonia, possible pulmonary embolism. #2 Acute on chronic renal failure. #3 Diabetes mellitus. #4 Gastroesophageal reflux disease. #5 Hypertension. #6 History of diastolic congestive heart failure. #7 Complete heart block status post permanent pacemaker implantation. Plan: The patient was seen and evaluated by Dr. Guadalupe. Chest x-ray, VQ scan and labs were all reviewed. We'll discontinue the Rocephin and azithromycin and initiate Zosyn for now. Patient may have a healthcare acquired pneumonia. Continue with diuretics. Lovenox. We will increase his activity as tolerated. We'll continue to follow and make further recommendations based on his clinical status. I, the cosigning physician, performed a history & physical examination of the patient. Lungs sounds with crackles in the posterior bases. Maintaining good O2 saturations in the 90s on 2 L/m per nasal cannula. I discussed the assessment and plan of care with my nurse practitioner, Isela Siddiqui. I attest to the above note as dictated by her. Time with Patient: Greater than 30
--- NOTE | 2017-11-19 16:02 | US ---
EXAMINATION TYPE: US venous doppler duplex LE DATE OF EXAM: 11/19/2017 3:40 PM COMPARISON: NO LEV CLINICAL HISTORY: R/O DVT; recently on Plavix; PE SIDE PERFORMED: Bilateral TECHNIQUE: The lower extremity deep venous system is examined utilizing real time linear array sonog roderick with graded compression, doppler sonography and color-flow sonography. VESSELS IMAGED: Common Femoral Vein Deep Femoral Vein Greater Saphenous Vein * Femoral Vein Popliteal Vein Small Saphenous Vein * Proximal Calf Veins (* superficial vessels) Right Leg: Right CFV and Right Popliteal Vein thickened valve is noted on image #[id number] and # [id number], res pectively; otherwise, color flow patency is documented with compressible veins. Left Leg: Negative for DVT IMPRESSION: 1. No evidence of deep venous thrombosis bilateral lower extremities. 2. Incidental note is made of some prominence of venous valves in the right leg discussed above.
[2017-11-19 16:56] LABS: Glucose,Whole Blood 369 mg/dL (75-99)
[2017-11-19] MEDS ORDERED: INSULIN DETEMIR 100 UNIT/ML 10 ML VIAL SQ SCH (18:00)
[2017-11-19] MEDS: FUROSEMIDE 10 MG/ML 4 ML VIAL IV SCH (20:28)
[2017-11-19] MEDS: TIMOLOL 0.5% OPHTH DROPS 5 ML BTL LEFT EYE SCH (20:28)
[2017-11-19] MEDS: DORZOLAMIDE HCL 2% DROPS 10 ML BTL BOTH EYES SCH (20:28)
[2017-11-19 20:51] LABS: Hemoglobin A1C 7.9 % (4.0-6.0)
[2017-11-19 20:53] LABS: Glucose,Whole Blood 278 mg/dL (75-99)
[2017-11-19] MEDS ORDERED: LATANOPROST 0.005% OPHTH DROPS 2.5 ML BTL BOTH EYES SCH (21:00)
[2017-11-20] MEDS: SODIUM CHLORIDE 0.9% 1,000 ML IV SCH (03:58)
[2017-11-20 06:23] LABS: Glucose,Whole Blood 200 mg/dL (75-99)
[2017-11-20] MEDS: INSULIN ASPART 100 UNIT/ML 1 ML 10 ML VIAL SQ SCH (06:28)
[2017-11-20] MEDS: glipiZIDE 10 MG TAB PO SCH (06:28)
[2017-11-20 06:42] LABS: Calcium 8.8 mg/dL (8.4-10.2); Potassium 3.9 mmol/L (3.5-5.1)
[2017-11-20] MEDS ORDERED: PANTOPRAZOLE 40 MG TABLET PO SCH (07:30)
[2017-11-20] MEDS: ENOXAPARIN 40 MG/0.4 ML SYRINGE SQ SCH ×2 (08:05→08:22)
[2017-11-20] MEDS: ATENOLOL 25 MG TAB PO SCH (08:06)
[2017-11-20] MEDS: ISOSORBIDE MONONITRATE ER 30 MG TAB.ER.24H PO SCH (08:06)
[2017-11-20] MEDS: TIMOLOL 0.5% OPHTH DROPS 5 ML BTL LEFT EYE SCH (08:07)
[2017-11-20] MEDS: FUROSEMIDE 10 MG/ML 4 ML VIAL IV SCH (08:07)
[2017-11-20] MEDS: DORZOLAMIDE HCL 2% DROPS 10 ML BTL BOTH EYES SCH (08:08)
[2017-11-20 08:25] VITALS: TEMP 96.9
[2017-11-20] MEDS: IPRATROPIUM-ALBUTEROL 3 ML NEB INHALATION SCH ×2 (08:53→11:44)
[2017-11-20] MEDS ORDERED: ATORVASTATIN 40 MG TAB PO SCH (09:00)
[2017-11-20] MEDS ORDERED: AZITHROMYCIN 500 MG TAB PO SCH (09:00)
[2017-11-20] MEDS ORDERED: LOSARTAN 50 MG TAB PO SCH (09:00)
[2017-11-20] MEDS ORDERED: ASPIRIN 325 MG TAB PO SCH ×2 (09:00)
[2017-11-20] MEDS ORDERED: FERROUS SULFATE 325 MG TAB PO SCH (09:00)
[2017-11-20] MEDS ORDERED: cefTRIAXone IN SWFI 1,000 MG/10 ML SYRINGE IVP SCH (09:00)
[2017-11-20] MEDS ORDERED: ATENOLOL 25 MG TAB PO SCH (09:00)
[2017-11-20] MEDS ORDERED: ALLOPURINOL 100 MG TAB PO SCH (09:00)
[2017-11-20] MEDS ORDERED: ISOSORBIDE MONONITRATE ER 30 MG TAB.ER.24H PO SCH (09:00)
--- NOTE | 2017-11-20 10:02 | XR ---
EXAMINATION TYPE: XR chest 2V DATE OF EXAM: 11/20/2017 COMPARISON: 11/19/2017 HISTORY: Concern for pneumonia. Shortness of breath. TECHNIQUE: Frontal and lateral views of the chest are obtained. FINDINGS: There is marked improved aeration of the lungs in comparison to the prior with resolution of the previously seen pulmonary edema. Cardiac silhouette is mildly enlarged. Multilevel degenerativ e changes are seen of the thoracic spine, moderate in degree. Dual lead left-sided cardiac device is noted. No pneumothorax. Trace left pleural effusion is evident. This is unchanged from the prior. IMPRESSION: Marked improvement in the degree of lung aeration. Resolution of the previously seen pul monary vascular congestion. Trace residual left pleural effusion.
[2017-11-20 11:21] LABS: Glucose,Whole Blood 180 mg/dL (75-99)
--- NOTE | 2017-11-20 11:57 | P.DS ---
Providers Date of admission: 11/19/17 03:26 Attending physician: Christian Minaya Consults: 11/19/17 03:26 Consult Physician Routine Consulting Provider: Lisa Guadalupe Consult Reason/Comments: hypoxia Do you want consulting provider notified?: Yes Consult Physician Routine Consulting Provider: Amber Edwards Consult Reason/Comments: chf Do you want consulting provider notified?: Yes Primary care physician: [facility] Hospital Course: Patient was admitted for respiratory failure secondary to chronic diastolic dysfunction with acute exacerbation along with the healthcare associated pneumonia patient was discharged on Augmentin and 40 mg of Lasix discussed with pulmonary as well as a cardiology. And the patient bilateral lower limb Doppler is negative for DVT VQ scan was intermediate property Pulmonary embolism although clinical suspicion is extremely low because of which patient will not be started on any anticoagulation. Patient will follow up closely with his primary care physician. PHYSICAL EXAMINATION: GENERAL: The patient is alert and oriented x3, not in any acute distress. Well developed, well nourished. HEENT: Pupils are round and equally reacting to light. EOMI. No scleral icterus. No conjunctival pallor. Normocephalic, atraumatic. No pharyngeal erythema. No thyromegaly. CARDIOVASCULAR: S1 and S2 present. No murmurs, rubs, or gallops. PULMONARY: Good air entry into bilateral lung eddy rhonchus breath sounds ABDOMEN: Soft, nontender, nondistended, normoactive bowel sounds. No palpable organomegaly. MUSCULOSKELETAL: No joint swelling or deformity. EXTREMITIES: No cyanosis, clubbing, or pedal edema. NEUROLOGICAL: Gross neurological examination did not reveal any focal deficits. SKIN: No rashes. 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 p Patient Condition at Discharge: Fair Plan - Discharge Summary New Discharge Prescriptions: New Amoxic-Pot Clav 875-125Mg [Augmentin 875-125] 1 tab PO Q12HR #14 tablet Furosemide [Lasix] 40 mg PO DAILY #30 tablet Albuterol Inhaler [Ventolin Hfa Inhaler] 1 - 2 puff INHALATION Q6HR PRN #1 inhaler PRN Reason: Shortness Of Breath Or Wheezing Discontinued Hydrochlorothiazide [Hydrodiuril] 25 mg PO DAILY No Action Allopurinol [Zyloprim] 150 mg PO DAILY Aspirin 325 mg PO DAILY Timolol [Betimol 0.5% Ophth Soln] 1 drop LEFT EYE BID Latanoprost Ophth [Xalatan 0.005%] 1 drop BOTH EYES HS Ferrous Sulfate [Feosol] 648 mg PO DAILY Dorzolamide HCl 1 drop BOTH EYES BID Isosorbide Mononitrate [Isosorbide Mononitrate ER] 30 mg PO DAILY Atenolol [Tenormin] 25 mg PO DAILY glipiZIDE [Glucotrol] 10 mg PO DAILY Insulin Glargine [Lantus] 40 unit SQ DAILY@1800 Potassium 99 mg PO DAILY Multivitamins, Thera [Multivitamin (formulary)] 1 tab PO DAILY Fish Oil/Dha/Epa [Fish Oil 1,200 mg Fish Oil] 1 cap PO DAILY Simvastatin [Zocor] 80 mg PO DAILY Losartan [Cozaar] 50 mg PO DAILY tab Omeprazole 20 mg PO DAILY Discharge Medication List Allopurinol [Zyloprim] 150 mg PO DAILY 12/28/13 [History] Aspirin 325 mg PO DAILY 12/28/13 [History] Dorzolamide HCl 1 drop BOTH EYES BID 12/28/13 [History] Ferrous Sulfate [Feosol] 648 mg PO DAILY 12/28/13 [History] Latanoprost Ophth [Xalatan 0.005%] 1 drop BOTH EYES HS 12/28/13 [History] Timolol [Betimol 0.5% Ophth Soln] 1 drop LEFT EYE BID 12/28/13 [History] Atenolol [Tenormin] 25 mg PO DAILY 11/11/14 [History] Isosorbide Mononitrate [Isosorbide Mononitrate ER] 30 mg PO DAILY 11/11/14 [ History] Insulin Glargine [Lantus] 40 unit SQ DAILY@1800 07/29/16 [History] glipiZIDE [Glucotrol] 10 mg PO DAILY 07/29/16 [History] Fish Oil/Dha/Epa [Fish Oil 1,200 mg Fish Oil] 1 cap PO DAILY 10/12/17 [History] Losartan [Cozaar] 50 mg PO DAILY tab 10/12/17 [Rx] Multivitamins, Thera [Multivitamin (formulary)] 1 tab PO DAILY 10/12/17 [History ] Potassium 99 mg PO DAILY 10/12/17 [History] Simvastatin [Zocor] 80 mg PO DAILY 10/12/17 [History] Omeprazole 20 mg PO DAILY 11/19/17 [History] Albuterol Inhaler [Ventolin Hfa Inhaler] 1 - 2 puff INHALATION Q6HR PRN #1 inhaler 11/20/17 [Rx] Amoxic-Pot Clav 875-125Mg [Augmentin 875-125] 1 tab PO Q12HR #14 tablet [Rx] Furosemide [Lasix] 40 mg PO DAILY #30 tablet 11/20/17 [Rx] Follow up Appointment(s)/Referral(s): Héctor Meyer MD [STAFF PHYSICIAN] - 12/08/17 4:00 pm (Device check and follow up with Dr. Meyer.) [facility],Clinic [Primary Care Provider] - 3 Days (Office to call today or tomorrow with follow up appointment.) Patient Instructions/Handouts: Heart Failure (DC), Pulmonary Edema (DC), Heart Healthy Diet (DC), Pneumonia (DC) Discharge Disposition: HOME SELF-CARE
[2017-11-20 11:59] VITALS: BP 130/61; PULSE 67; RESP 17
--- NOTE | 2017-11-20 13:13 | P.PN ---
Subjective Progress Note Date: 11/20/17 Principal diagnosis: Acute exacerbation of chronic diastolic systolic congestive heart failure and suspected healthcare acquired pneumonia. This is a very pleasant 72-year-old gentleman who follows with the [facility] for his primary care needs. He has a history of diabetes mellitus, hyperlipidemia, hypertension, gout and a complete heart block status post permanent pacemaker implantation, diastolic congestive heart failure, aortic stenosis. He presented here early this morning with complaints of increasing shortness of breath that came on rather suddenly and awoke him from sleep. He also felt as though he had a fever. No chest pain, palpitations lightheadedness or dizziness. Positive diaphoresis. He was recently discharged in September 2017 following a episode of diastolic congestive heart failure. Chest x-ray showed evidence of pulmonary edema. VQ scan reveals an immediate probability for pulmonary embolism in the left midlung. Initially requiring 6 L high flow nasal cannula to maintain O2 saturations in the 90s. Temp 100.8. White count 16.8. Hemoglobin 11.9. Creatinine 1.40. Troponin 0.025, 0.219. ProBNP 265. Influenza screen negative. He is seen today in consultation on the selective care unit. He is currently awake and alert in no acute distress. He states his breathing has improved as the day goes on. He denies any worsening shortness of breath, cough or congestion. He is dyspneic on exertion. He is currently afebrile. Maintaining good O2 saturations in the upper 90s on 2 L/m per nasal cannula. Hemodynamically stable. His been initiated on bronchodilators, antibiotics in the form of ceftriaxone and azithromycin. He's been started on Lasix 40 mg IV push every 12 hours. The patient is seen again today 11/20/2017 in follow-up on the selective care unit. He was awake and alert in no acute distress. He is breathing quite a bit better today as compared to yesterday. Nearly back to his baseline. He is anxious to go home. His chest x-ray reveals significant improvement in the pulmonary vascular congestion. He is maintaining good O2 saturations in the 90s on room air. He's been afebrile. Hemodynamically stable. Blood cultures reveal no growth. Creatinine 1.33. Objective - Vital Signs Vital signs: Vital Signs Temp 96.9 F L 11/20/17 08:00 Pulse 67 11/20/17 11:59 Resp 17 11/20/17 11:59 BP 130/61 11/20/17 11:59 Pulse Ox 100 11/20/17 11:59 Intake & Output 11/19/17 11/20/17 11/20/17 18:59 06:59 18:59 Intake Total 400 240 Output Total 700 1650 1400 Balance -300 -8745 -1160 Weight 91.8 kg 91.6 kg Intake: Intake, IV Titration 160 Amount Sodium Chloride 0.9% 1, 160 000 ml @ 20 mls/hr IV . Q24H [facility] Rx#:[id number] Oral 240 240 Output: Urine 700 1650 1400 Other: Voiding Method Self-Catheterization Self-Catheterization # Voids 1 - Exam GENERAL EXAM: Alert, active, comfortable in no apparent distress. HEAD: Normocephalic. EYES: Normal reaction of pupils, equal size. NOSE: Clear with pink turbinates. THROAT: No erythema or exudates. NECK: No masses, no JVD. CHEST: No chest wall deformity. LUNGS: Equal air entry with faint crackles in bilateral posterior bases CVS: S1 and S2 normal with an audible murmur, regular rhythm. ABDOMEN: No hepatosplenomegaly, normal bowel sounds, no guarding or rigidity. SPINE: No scoliosis or deformity SKIN: No rashes CENTRAL NERVOUS SYSTEM: No focal deficits, tone is normal in all 4 extremities. EXTREMITIES: There is no peripheral edema. No clubbing, no cyanosis. Peripheral pulses are intact. - Labs CBC & Chem 7: 11/19/17 02:30 11/20/17 06:16 Labs: Abnormal Lab Results - Last 24 Hours (Table) 11/19/17 11/19/17 11/19/17 Range/Units 09:25 15:02 16:37 BUN (9-20) mg/dL Creatinine (0.66-1.25) mg/dL Glucose (74-99) mg/dL POC Glucose (mg/dL) 369 H (75-99) mg/dL Hemoglobin A1c 7.9 H (4.0-6.0) % Troponin I 0.206 H* (0.000-0.034) ng/mL 11/19/17 11/20/17 11/20/17 Range/Units 20:52 06:16 06:21 BUN 39 H (9-20) mg/dL Creatinine 1.33 H (0.66-1.25) mg/dL Glucose 199 H (74-99) mg/dL POC Glucose (mg/dL) 278 H 200 H (75-99) mg/dL Hemoglobin A1c (4.0-6.0) % Troponin I (0.000-0.034) ng/mL 11/20/17 Range/Units 11:18 BUN (9-20) mg/dL Creatinine (0.66-1.25) mg/dL Glucose (74-99) mg/dL POC Glucose (mg/dL) 180 H (75-99) mg/dL Hemoglobin A1c (4.0-6.0) % Troponin I (0.000-0.034) ng/mL Microbiology - Last 24 Hours (Table) 11/19/17 03:45 Blood Culture - Preliminary Blood No Growth after 24 hours 11/19/17 02:30 Blood Culture - Preliminary Blood No Growth after 24 hours Assessment and Plan Assessment: Impression: #1 Acute hypoxic respiratory failure secondary to an acute exacerbation of diastolic congestive heart failure, possible healthcare acquired pneumonia, doubt pulmonary embolism. #2 Acute on chronic renal failure. #3 Diabetes mellitus. #4 Gastroesophageal reflux disease. #5 Hypertension. #6 History of diastolic congestive heart failure. #7 Complete heart block status post permanent pacemaker implantation. Plan: The patient was seen and evaluated by Dr. Guadalupe. He is cleared for discharge from the pulmonary standpoint. Continue a course of antibiotics. Continue diuretics. Follow closely at the [facility]. I, the cosigning physician, performed a history & physical examination of the patient. Lungs sounds with crackles in the posterior bases. Maintaining good O2 saturations in the 90s on room air. I discussed the assessment and plan of care with my nurse practitioner, Isela Siddiqui. I attest to the above note as dictated by her.
--- NOTE | 2017-11-20 14:25 | P.PN ---
Subjective Progress Note Date: 11/20/17 This is a 72-year-old gentleman who follows regularly with Dr. Rodriguez in the office. He has history of hypertension, diabetes, prior pacemaker, hyperlipidemia, presented to the hospital with symptoms of progressively worsening shortness of breath. Patient was seen in consultation by Dr. Tate yesterday, he was initiated on IV Lasix. VQ scan was also performed which was intermediate probability for PE. Chest x-ray also suggests pneumonia. Patient did have good urine output from the Lasix. Blood pressure 130/60, heart rate in the 60s. Chest x-ray shows significant improvement in pulmonary vascular congestion. Objective - Vital Signs Vital signs: Vital Signs Temp 96.9 F L 11/20/17 08:00 Pulse 67 11/20/17 11:59 Resp 17 11/20/17 11:59 BP 130/61 11/20/17 11:59 Pulse Ox 100 11/20/17 11:59 Intake & Output 11/19/17 11/20/17 11/20/17 18:59 06:59 18:59 Intake Total 400 240 Output Total 700 1650 1400 Balance -300 -1650 -1160 Weight 91.8 kg 91.6 kg Intake: Intake, IV Titration 160 Amount Sodium Chloride 0.9% 1, 160 000 ml @ 20 mls/hr IV . Q24H [facility] Rx#:[id number] Oral 240 240 Output: Urine 700 1650 1400 Other: Voiding Method Self-Catheterization Self-Catheterization # Voids 1 - Exam PHYSICAL EXAMINATION: HEENT: Head is atraumatic, normocephalic. Pupils equal, round. Neck is supple. There is no elevated jugular venous pressure. HEART EXAMINATION: Heart S1 and S2 systolic murmur is heard. CHEST EXAMINATION: His reveal crackles to bilateral bases. ABDOMEN: Soft, nontender. Bowel sounds are heard. No organomegaly noted. EXTREMITIES: 2+ peripheral pulses with no evidence of peripheral edema and no calf tenderness noted. NEUROLOGIC patient is awake, alert and oriented -3. . - Labs CBC & Chem 7: 11/19/17 02:30 11/20/17 06:16 Labs: Abnormal Lab Results - Last 24 Hours (Table) 11/19/17 11/19/17 11/19/17 Range/Units 09:25 15:02 16:37 BUN (9-20) mg/dL Creatinine (0.66-1.25) mg/dL Glucose (74-99) mg/dL POC Glucose (mg/dL) 369 H (75-99) mg/dL Hemoglobin A1c 7.9 H (4.0-6.0) % Troponin I 0.206 H* (0.000-0.034) ng/mL 11/19/17 11/20/17 11/20/17 Range/Units 20:52 06:16 06:21 BUN 39 H (9-20) mg/dL Creatinine 1.33 H (0.66-1.25) mg/dL Glucose 199 H (74-99) mg/dL POC Glucose (mg/dL) 278 H 200 H (75-99) mg/dL Hemoglobin A1c (4.0-6.0) % Troponin I (0.000-0.034) ng/mL 11/20/17 Range/Units 11:18 BUN (9-20) mg/dL Creatinine (0.66-1.25) mg/dL Glucose (74-99) mg/dL POC Glucose (mg/dL) 180 H (75-99) mg/dL Hemoglobin A1c (4.0-6.0) % Troponin I (0.000-0.034) ng/mL Microbiology - Last 24 Hours (Table) 11/19/17 03:45 Blood Culture - Preliminary Blood No Growth after 24 hours 11/19/17 02:30 Blood Culture - Preliminary Blood No Growth after 24 hours Assessment and Plan Plan: Assessment and plan #1 acute hypoxic respiratory failure secondary to an acute exacerbation of diastolic congestive heart failure and pneumonia. VQ scan suggests intermediate probability for PE #2 acute on chronic renal failure #3 diabetes #4 hypertension #5 complete heart block status post permanent pacemaker implantation Plan From cardiology's perspective, we will recommend to continue current dose of IV Lasix. Check lytes BUN and creatinine in the morning. DNP note has been reviewed, I agree with a documented findings and plan of care. Patient was seen and examined.
== END 2017-11-20 12:20 | disposition home or self-care (01) | DRG 291 ==
LOC: EC 02:21 → 6SEL 03:26
PROVIDERS: ADMIT Hospitalist; ATTEND Hospitalist
DX: I13.0 Hypertensive heart and chronic kidney disease with heart failure and stage 1 through stage 4 chronic kidney disease, or unspecified chronic kidney disease (principal); J18.9 Pneumonia, unspecified organism; J96.01 Acute respiratory failure with hypoxia; I44.2 Atrioventricular block, complete; N17.9 Acute kidney failure, unspecified; E11.65 Type 2 diabetes mellitus with hyperglycemia; E11.21 Type 2 diabetes mellitus with diabetic nephropathy; I48.91 Unspecified atrial fibrillation; I50.43 Acute on chronic combined systolic (congestive) and diastolic (congestive) heart failure; K21.9 Gastro-esophageal reflux disease without esophagitis; E78.5 Hyperlipidemia, unspecified; N18.2 Chronic kidney disease, stage 2 (mild); H40.9 Unspecified glaucoma; I35.0 Nonrheumatic aortic (valve) stenosis; N42.9 Disorder of prostate, unspecified; M10.9 Gout, unspecified; Y95 Nosocomial condition; E11.22 Type 2 diabetes mellitus with diabetic chronic kidney disease; Z79.4 Long term (current) use of insulin; Z79.82 Long term (current) use of aspirin; Z79.899 Other long term (current) drug therapy; Z83.3 Family history of diabetes mellitus; Z87.01 Personal history of pneumonia (recurrent); Z87.440 Personal history of urinary (tract) infections; Z95.0 Presence of cardiac pacemaker; I25.2 Old myocardial infarction; Z82.49 Family history of ischemic heart disease and other diseases of the circulatory system; Z87.891 Personal history of nicotine dependence
CPT/HCPCS: 36415; 71046; 78582; 80048; 80053; 82550; 82553; 83036; 83735; 83880; 84484; 85025; 85379; 85610; 85730; 87040; 87502; 93005; 93970; 94640; 94760; 96365; 96368; 96375; 99291

== ENCOUNTER 2018-06-13 05:59 | Emergency (ER) | payer MEDICARE, BC ==
[2018-06-13 06:06] VITALS: TEMP 98.4
[2018-06-13 06:43] VITALS: BP 140/65; PULSE 70; RESP 16
[2018-06-13 07:00] LABS: Basophils % (A) 0 %; Eosinophils # (A) 0.6 k/uL (0-0.7); Eosinophils % (A) 6 %; HCT 34.2 % (39.0-53.0); HGB 10.9 gm/dL (13.0-17.5); Hypochromasia Slight; Lymphocytes # (A) 1.7 k/uL (1.0-4.8); Lymphocytes % (A) 16 %; MCH 29.3 pg (25.0-35.0); MCHC 31.7 g/dL (31.0-37.0); MCV 92.2 fL (80.0-100.0); Mean Platelet Volume 8.6; Monocytes # (A) 0.5 k/uL (0-1.0); Monocytes % (A) 5 %; Neutrophils # (A) 7.5 k/uL (1.3-7.7); Neutrophils % (A) 72 %; Platelet Count 240 k/uL (150-450); RBC 3.71 m/uL (4.30-5.90); RDW 14.9 % (11.5-15.5); WBC 10.4 k/uL (3.8-10.6)
[2018-06-13 07:11] LABS: Albumin 3.6 g/dL (3.5-5.0); Calcium 9.2 mg/dL (8.4-10.2); Potassium 4.3 mmol/L (3.5-5.1); Total Bilirubin 0.4 mg/dL (0.2-1.3); Total Protein 6.1 g/dL (6.3-8.2)
--- NOTE | 2018-06-13 07:54 | ED ---
General Adult HPI - General Chief complaint: Abdominal Pain Stated complaint: Abdominal Pain Time Seen by Provider: 06/13/18 07:38 Source: patient, family, RN notes reviewed Mode of arrival: ambulatory Limitations: no limitations - History of Present Illness Initial comments: Patient is a pleasant 73-year-old male presenting to the emergency Department with concerns regarding abdominal discomfort. Onset of symptoms was yesterday. Symptoms have somewhat progressed since that time however are not very severe. Discomfort is still rated as mild. Patient does not feel he needs any medication for this. Patient did have similar symptoms once previously associated with some fluid on his lungs. Patient denies any chest pain. Patient denies any dyspnea. Discomfort does worsen with movement. Discomfort is left lateral flank. No hematuria or dysuria. No nausea vomiting. No constipation or diarrhea. - Related Data Home Medications Medication Instructions Recorded Confirmed Allopurinol [Zyloprim] 150 mg PO DAILY 12/28/13 06/13/18 Aspirin 325 mg PO DAILY 12/28/13 06/13/18 Dorzolamide HCl 1 drop BOTH EYES BID 12/28/13 06/13/18 Ferrous Sulfate [Feosol] 648 mg PO DAILY 12/28/13 06/13/18 Latanoprost Ophth [Xalatan 0.005%] 1 drop BOTH EYES HS 12/28/13 06/13/18 Timolol [Betimol 0.5% Ophth Soln] 1 drop LEFT EYE BID 12/28/13 06/13/18 Atenolol [Tenormin] 25 mg PO DAILY 11/11/14 06/13/18 Isosorbide Mononitrate [Isosorbide 30 mg PO DAILY 11/11/14 06/13/18 Mononitrate ER] Insulin Glargine [Lantus] 40 unit SQ DAILY@1800 07/29/16 06/13/18 glipiZIDE [Glucotrol] 10 mg PO DAILY 07/29/16 06/13/18 Fish Oil/Dha/Epa [Fish Oil 1,200 1 cap PO DAILY 10/12/17 06/13/18 mg Fish Oil] Multivitamins, Thera [Multivitamin 1 tab PO DAILY 10/12/17 06/13/18 (formulary)] Potassium 99 mg PO DAILY 10/12/17 06/13/18 Simvastatin [Zocor] 80 mg PO DAILY 10/12/17 06/13/18 Omeprazole 20 mg PO DAILY 11/19/17 06/13/18 Previous Rx's Medication Instructions Recorded Losartan [Cozaar] 50 mg PO DAILY tab 10/12/17 Albuterol Inhaler [Ventolin Hfa 1 - 2 puff INHALATION Q6HR PRN #1 11/20/17 Inhaler] inhaler Amoxic-Pot Clav 875-125Mg 1 tab PO Q12HR #14 tablet 11/20/17 [Augmentin 875-125] Furosemide [Lasix] 40 mg PO DAILY #30 tablet 11/20/17 Allergies Allergy/AdvReac Type Severity Reaction Status Date / Time No Known Allergies Allergy Verified 06/13/18 06:06 Review of Systems ROS Statement: Those systems with pertinent positive or pertinent negative responses have been documented in the HPI. ROS Other: All systems not noted in ROS Statement are negative. Constitutional: Denies: fever Eyes: Denies: eye pain ENT: Denies: ear pain Respiratory: Denies: cough, dyspnea Cardiovascular: Denies: chest pain Endocrine: Denies: fatigue Gastrointestinal: Reports: abdominal pain. Denies: nausea, vomiting Genitourinary: Denies: dysuria Musculoskeletal: Denies: back pain Skin: Denies: rash Neurological: Denies: weakness Past Medical History Past Medical History: Heart Failure, Diabetes Mellitus, GERD/Reflux, Hypertension, Pneumonia, Prostate Disorder, Renal Disease Additional Past Medical History / Comment(s): UTI's; glaucoma, pacemaker Last Myocardial Infarction Date:: 2004 History of Any Multi-Drug Resistant Organisms: None Reported Past Surgical History: Heart Catheterization, Pacemaker Additional Past Surgical History / Comment(s): shonna cataract surgery, Past Anesthesia/Blood Transfusion Reactions: No Reported Reaction Type of Cardiac Device: Permanent Pacemaker Device Placement Date:: 12/2013 Past Psychological History: No Psychological Hx Reported Smoking Status: Former smoker - Past Family History Father Family Medical History: Coronary Artery Disease (CAD), Myocardial Infarction ([place] ) Mother Family Medical History: Diabetes Mellitus General Exam Limitations: no limitations General appearance: alert, in no apparent distress Head exam: Present: atraumatic Eye exam: Present: normal appearance, PERRL ENT exam: Present: normal oropharynx Neck exam: Present: normal inspection Respiratory exam: Present: normal lung sounds bilaterally. Absent: wheezes, rales, chest wall tenderness Cardiovascular Exam: Present: regular rate, normal rhythm Expanded Peripheral pulses: 2+: Dorsalis Pedis (R), Dorsalis Pedis (L) GI/Abdominal exam: Present: soft, tenderness (Mild tenderness left flank), normal bowel sounds. Absent: distended, guarding, rebound, rigid, pulsatile mass Extremities exam: Present: normal inspection. Absent: pedal edema, calf tenderness Back exam: Present: normal inspection Neurological exam: Present: alert Psychiatric exam: Present: normal affect, normal mood Skin exam: Present: normal color Course Vital Signs 06/13/18 06/13/18 06:02 06:42 Temperature 98.4 F Pulse Rate 81 70 Respiratory 22 16 Rate Blood Pressure 159/69 140/65 O2 Sat by Pulse 97 95 Oximetry EKG Findings - EKG Comments: EKG Findings:: Normal sinus rhythm 77. LA 206. QRS 150. QT 438. QTC 495. Normal axis, left bundle branch block. Nonspecific ST-T. Medical Decision Making - Medical Decision Making Patient reevaluated and resting comfortably in bed. Family is present. Patient is strongly recommended to have catheter placed to drain bladder. Patient refuses. Patient states he does have catheter is at home that he can use to drain his bladder. Patient states he does do this regularly however admits it is been too long since he lasted and he does not believe he drained it enough last time. Patient is again advised to have catheter placed however still refuses. Patient is agreeable to return if he does not drink large amount out, patient also agrees to follow-up with urology. - Lab Data Result diagrams: 06/13/18 06:20 06/13/18 06:20 Lab Results 06/13/18 06/13/18 Range/Units 06:20 06:20 WBC 10.4 (3.8-10.6) k/uL RBC 3.71 L (4.30-5.90) m/uL Hgb 10.9 L (13.0-17.5) gm/dL Hct 34.2 L (39.0-53.0) % MCV 92.2 (80.0-100.0) fL MCH 29.3 (25.0-35.0) pg MCHC 31.7 (31.0-37.0) g/dL RDW 14.9 (11.5-15.5) % Plt Count 240 (150-450) k/uL Neutrophils % 72 % Lymphocytes % 16 % Monocytes % 5 % Eosinophils % 6 % Basophils % 0 % Neutrophils # 7.5 (1.3-7.7) k/uL Lymphocytes # 1.7 (1.0-4.8) k/uL Monocytes # 0.5 (0-1.0) k/uL Eosinophils # 0.6 (0-0.7) k/uL Basophils # 0.0 (0-0.2) k/uL Hypochromasia Slight Sodium 143 (137-145) mmol/L Potassium 4.3 (3.5-5.1) mmol/L Chloride 107 (98-107) mmol/L Carbon Dioxide 25 (22-30) mmol/L Anion Gap 11 mmol/L BUN 24 H (9-20) mg/dL Creatinine 1.45 H (0.66-1.25) mg/dL Est GFR (CKD-EPI)AfAm 54 (>60 ml/min/1.73 sqM) Est GFR (CKD-EPI)NonAf 47 (>60 ml/min/1.73 sqM) Glucose 219 H (74-99) mg/dL Calcium 9.2 (8.4-10.2) mg/dL Total Bilirubin 0.4 (0.2-1.3) mg/dL AST 19 (17-59) U/L ALT 31 (21-72) U/L Alkaline Phosphatase 69 (38-126) U/L Total Protein 6.1 L (6.3-8.2) g/dL Albumin 3.6 (3.5-5.0) g/dL Amylase 42 (30-110) U/L Lipase 98 (23-300) U/L - Radiology Data Radiology results: report reviewed (Computed tomography scan of the abdomen pelvis shows significant distention of the bladder and hydroureter hydronephrosis. Cannot rule out colitis.), image reviewed (Chest x-ray shows small left effusion) Disposition Clinical Impression: Abdominal pain, Urinary retention Disposition: HOME SELF-CARE Condition: Stable Instructions: Abdominal Pain (ED), Urinary Retention in Men (ED) Additional Instructions: Please use your catheter as soon as you get home. You should drain a large amount of urine out, probably somewhere between 1 and 2 L. Return to emergency Department if you are unable to get a large amount of urine out. Also return for fevers, increased pain, worsening symptoms or any other concerns. Please follow-up to primary care physician as well as urologist this week. Is patient prescribed a controlled substance at d/c from ED?: No Referrals: [facility],Clinic [Primary Care Provider] - 1-2 days Mitch Salinas MD [STAFF PHYSICIAN] - 1-2 days Time of Disposition: 09:04
--- NOTE | 2018-06-13 08:29 | XR ---
EXAMINATION TYPE: XR chest 2V DATE OF EXAM: 06/13/2018 HISTORY: Pain. REFERENCE: Previous study dated 11/20/2017. FINDINGS: There is a bipolar pacemaker place on the left. There continues to be some atelectasis at the left lung base. Small left effusion. The right lung is clear. The heart is normal in size. IMPRESSION: 1. MINIMAL RESIDUAL LEFT BASILAR ATELECTASIS. 2. SMALL, LEFT PLEURAL EFFUSION.
--- NOTE | 2018-06-13 08:37 | CT ---
EXAMINATION TYPE: CT abdomen pelvis wo con DATE OF EXAM: 06/13/2018 COMPARISON: NONE HISTORY: Abdominal pain CT DLP: 760 mGycm Automated exposure control for dose reduction was used. FINDINGS: There is a small left pleural effusion. There is minimal left basilar airspace disease. Thi s may represent some rounded atelectasis. There is no pleural effusion. There is a bipolar pacemaker in place. The heart is not enlarged. Within the abdomen, the liver, spleen and gallbladder are unremarkable. Both adrenal glands are normal. There is bilateral hydronephrosis and hydroureter to the level of the bladder. No renal calculus is s een. No ureteric calculi are seen. Limited views of the pancreas are normal. There is moderate atheromatous calcification of the visualized arterial tree. There is no significant retroperitoneal, iliac or inguinal adenopathy. The bladder is very distended. This is collapse of the distal colon making assessment of bowel wall difficult. The appendix is shakir l. Small bowel loops are normal. There is no free fluid and no free air. There is degenerative disc disease, facet arthropathy and hypertrophic spondylosis involving the spin e. IMPRESSION: 1. BLADDER DISTENTION. 2. BILATERAL HYDRONEPHROSIS AND HYDROURETER TO THE LEVEL OF THE BLADDER WITHOUT EVIDENCE OF RENAL OR URETERIC CALCULI. 3. COLLAPSE OF THE DISTAL COLON MAKING ASSESSMENT OF THE BOWEL WALL THICKNESS DIFFICULT. PLEASE CORRE LATE TO EXCLUDE COLITIS. 4.SMALL LEFT PLEURAL EFFUSION WITH ASSOCIATED LEFT BASILAR AIRSPACE DISEASE, MAYBE REPRESENTING ROUND ED ATELECTASIS 5. DEGENERATIVE CHANGES WITHIN THE SPINE.
== END 2018-06-13 10:00 | disposition home or self-care (01) ==
LOC: EC 05:59
DX: R33.9 Retention of urine, unspecified (principal); R10.9 Unspecified abdominal pain; I25.2 Old myocardial infarction; I11.0 Hypertensive heart disease with heart failure; I50.9 Heart failure, unspecified; E11.9 Type 2 diabetes mellitus without complications; K21.9 Gastro-esophageal reflux disease without esophagitis; H40.9 Unspecified glaucoma; Z87.891 Personal history of nicotine dependence; Z79.4 Long term (current) use of insulin; Z79.82 Long term (current) use of aspirin; Z79.899 Other long term (current) drug therapy; Z53.29 Procedure and treatment not carried out because of patient's decision for other reasons; Z95.0 Presence of cardiac pacemaker; Z95.818 Presence of other cardiac implants and grafts; Z82.49 Family history of ischemic heart disease and other diseases of the circulatory system
CPT/HCPCS: 36415; 71046; 74176; 80053; 82150; 83690; 85025; 93005; 99284

== ENCOUNTER → 2018-07-31 | Outpatient (CLI) | payer OTHER ==
--- NOTE | 2018-08-02 17:51 | US ---
EXAMINATION TYPE: US kidneys/renal and bladder DATE OF EXAM: 07/31/2018 COMPARISON: CT 06/13/2018 CLINICAL HISTORY: R93.41 Abnormal radiologic findings on diagnostic. EXAM MEASUREMENTS: Right Kidney: 12.4 x 5.4 x 4.7 cm Left Kidney: 11.9 x 5.6 x 4.4 cm Right Kidney: No hydronephrosis or masses seen Left Kidney: Mildly prominent renal pelvis, No cystic or solid masses visualized Bladder: wnl Bilateral Jets seen: No IMPRESSION: Mild hydronephrosis left kidney.
== END | disposition home or self-care (01) ==
LOC: RADUSWWP 15:38
PROVIDERS: ATTEND Family Medicine
DX: N13.30 Unspecified hydronephrosis (principal)
CPT/HCPCS: 76770

== ENCOUNTER 2018-09-13 05:00 | Inpatient (IN) | payer OTHER, MEDICARE, BC ==
[2018-09-13 05:14] LABS: Glucose,Whole Blood 258 mg/dL (75-99)
--- NOTE | 2018-09-13 05:16 | ED ---
SOB HPI - General Stated Complaint: Difficulty Breathing Source: patient, family, EMS Limitations: physical limitation (Dyspnea) - History of Present Illness Initial Comments: This patient is 73-year-old man who presents [place] to be evaluated for shortness of breath. Patient states that he had been in his usual state of health last night. He got up this morning to take a shower just before 4 AM. Patient states that after that he started becoming more more short of breath and was having a cough with clear sputum. Patient is denying chest pain or pain anywhere else. He has not had a change in urination or bowel movements. No leg pain or swelling. No fever or chills. He denied preceding upper respiratory symptoms. MD Complaint: shortness of breath, cough Onset/Timin -: hour(s) Consistency: constant Improves With: nothing Worsens With: lying flat Associated Symptoms: cough, diaphoresis Treatments Prior to Arrival: none - Related Data Home Medications Medication Instructions Recorded Confirmed Allopurinol [Zyloprim] 150 mg PO DAILY 12/28/13 06/13/18 Aspirin 325 mg PO DAILY 12/28/13 06/13/18 Dorzolamide HCl 1 drop BOTH EYES BID 12/28/13 06/13/18 Ferrous Sulfate [Feosol] 648 mg PO DAILY 12/28/13 06/13/18 Latanoprost Ophth [Xalatan 0.005%] 1 drop BOTH EYES HS 12/28/13 06/13/18 Timolol [Betimol 0.5% Ophth Soln] 1 drop LEFT EYE BID 12/28/13 06/13/18 Atenolol [Tenormin] 25 mg PO DAILY 11/11/14 06/13/18 Isosorbide Mononitrate [Isosorbide 30 mg PO DAILY 11/11/14 06/13/18 Mononitrate ER] Insulin Glargine [Lantus] 40 unit SQ DAILY@1800 07/29/16 06/13/18 glipiZIDE [Glucotrol] 10 mg PO DAILY 07/29/16 06/13/18 Fish Oil/Dha/Epa [Fish Oil 1,200 1 cap PO DAILY 10/12/17 06/13/18 mg Fish Oil] Multivitamins, Thera [Multivitamin 1 tab PO DAILY 10/12/17 06/13/18 (formulary)] Potassium 99 mg PO DAILY 10/12/17 06/13/18 Simvastatin [Zocor] 80 mg PO DAILY 10/12/17 06/13/18 Omeprazole 20 mg PO DAILY 11/19/17 06/13/18 Previous Rx's Medication Instructions Recorded Losartan [Cozaar] 50 mg PO DAILY tab 10/12/17 Albuterol Inhaler [Ventolin Hfa 1 - 2 puff INHALATION Q6HR PRN #1 11/20/17 Inhaler] inhaler Amoxic-Pot Clav 875-125Mg 1 tab PO Q12HR #14 tablet 11/20/17 [Augmentin 875-125] Furosemide [Lasix] 40 mg PO DAILY #30 tablet 11/20/17 Allergies Allergy/AdvReac Type Severity Reaction Status Date / Time No Known Allergies Allergy Verified 09/13/18 05:57 Review of Systems ROS Statement: Those systems with pertinent positive or pertinent negative responses have been documented in the HPI. ROS Other: All systems not noted in ROS Statement are negative. Constitutional: Denies: fever, chills Respiratory: Reports: cough, dyspnea. Denies: wheezes Cardiovascular: Reports: orthopnea. Denies: chest pain, palpitations, edema, syncope Gastrointestinal: Denies: abdominal pain, vomiting, diarrhea Genitourinary: Denies: dysuria, hematuria Musculoskeletal: Denies: back pain Skin: Denies: rash Neurological: Denies: headache Psychiatric: Reports: anxiety Past Medical History Past Medical History: Heart Failure, Diabetes Mellitus, GERD/Reflux, Hypertension, Pneumonia, Prostate Disorder, Renal Disease Additional Past Medical History / Comment(s): UTI's; glaucoma, pacemaker Last Myocardial Infarction Date:: 2004 History of Any Multi-Drug Resistant Organisms: None Reported Past Surgical History: Heart Catheterization, Pacemaker Additional Past Surgical History / Comment(s): shonna cataract surgery, Past Anesthesia/Blood Transfusion Reactions: No Reported Reaction Type of Cardiac Device: Permanent Pacemaker Device Placement Date:: 12/2013 Past Psychological History: No Psychological Hx Reported Smoking Status: Former smoker - Past Family History Father Family Medical History: Coronary Artery Disease (CAD), Myocardial Infarction ([place] ) Mother Family Medical History: Diabetes Mellitus General Exam General appearance: alert, in distress Head exam: Present: atraumatic, normocephalic Eye exam: Present: normal appearance Neck exam: Present: normal inspection, full ROM Respiratory exam: Present: respiratory distress, rales, rhonchi. Absent: wheezes, stridor Cardiovascular Exam: Present: regular rate, normal rhythm, normal heart sounds. Absent: systolic murmur, diastolic murmur, rubs, gallop GI/Abdominal exam: Present: soft. Absent: distended, tenderness, guarding, rebound, mass Extremities exam: Present: normal inspection, normal capillary refill. Absent: pedal edema, calf tenderness Back exam: Present: normal inspection. Absent: CVA tenderness (R), CVA tenderness (L) Neurological exam: Present: alert Skin exam: Present: warm, intact, normal color, diaphoretic. Absent: rash Course Vital Signs 09/13/18 09/13/18 09/13/18 05:02 05:50 06:03 Temperature 99.4 F 97.5 F L Pulse Rate 117 H 80 Respiratory 40 H 37 H Rate Blood Pressure 233/107 153/69 140/70 O2 Sat by Pulse 89 L 96 Oximetry 09/13/18 09/13/18 09/13/18 06:20 06:40 06:50 Temperature 97.8 F Pulse Rate 80 75 74 Respiratory 23 24 21 Rate Blood Pressure 127/61 129/65 130/63 O2 Sat by Pulse 94 L 94 L 97 Oximetry 09/13/18 09/13/18 09/13/18 07:00 07:15 07:22 Temperature Pulse Rate 75 65 82 Respiratory 24 20 22 Rate Blood Pressure 130/63 148/67 136/60 O2 Sat by Pulse 96 98 97 Oximetry 09/13/18 09/13/18 09/13/18 07:30 08:00 08:30 Temperature Pulse Rate 67 69 72 Respiratory 19 21 22 Rate Blood Pressure 136/60 135/62 137/60 O2 Sat by Pulse 93 L 94 L 95 Oximetry Medical Decision Making - Medical Decision Making This patient is 73-year-old man brought by ambulance to be evaluated for severe dyspnea. On arrival he is markedly hypertensive and exam is consistent with hypertensive emergency/congestive heart failure. The patient started on BiPAP and nitroglycerin drip. After employees his blood pressure began to rapidly improve as well as his respiratory status and he was able to be weaned off the BiPAP onto nasal cannula. Patient be admitted for further evaluation including echocardiogram. He did have a mildly elevated d-dimer. Patient will area therefore have VQ scan. He is given 1 dose of Lovenox as protection against PE propagation. The patient did have with family is describing as a bad cold prior to the onset of this and the x-ray may show a little bit of the lateral infiltrate, therefore patient given doses of antibiotics and to have repeat chest x-ray as the CHF clears. - Lab Data Result diagrams: 09/13/18 05:09 09/13/18 05:09 Lab Results 09/13/18 09/13/18 09/13/18 Range/Units 05:07 05:09 05:09 WBC 13.4 H (3.8-10.6) k/uL RBC 4.93 (4.30-5.90) m/uL Hgb 13.8 (13.0-17.5) gm/dL Hct 45.1 (39.0-53.0) % MCV 91.4 (80.0-100.0) fL MCH 28.0 (25.0-35.0) pg MCHC 30.6 L (31.0-37.0) g/dL RDW 14.5 (11.5-15.5) % Plt Count 357 (150-450) k/uL Neutrophils % 55 % Lymphocytes % 32 % Monocytes % 5 % Eosinophils % 4 % Basophils % 1 % Neutrophils # 7.3 (1.3-7.7) k/uL Lymphocytes # 4.3 (1.0-4.8) k/uL Monocytes # 0.7 (0-1.0) k/uL Eosinophils # 0.6 (0-0.7) k/uL Basophils # 0.1 (0-0.2) k/uL Hypochromasia Slight PT (9.0-12.0) sec INR (<1.2) APTT (22.0-30.0) sec D-Dimer (<0.60) mg/L FEU Sodium (137-145) mmol/L Potassium (3.5-5.1) mmol/L Chloride (98-107) mmol/L Carbon Dioxide (22-30) mmol/L Anion Gap mmol/L BUN (9-20) mg/dL Creatinine (0.66-1.25) mg/dL Est GFR (CKD-EPI)AfAm (>60 ml/min/1.73 sqM) Est GFR (CKD-EPI)NonAf (>60 ml/min/1.73 sqM) Glucose (74-99) mg/dL POC Glucose (mg/dL) 258 H (75-99) mg/dL POC Glu Analog Device Designer ID Kourtney Joshua Calcium (8.4-10.2) mg/dL Total Bilirubin (0.2-1.3) mg/dL AST (17-59) U/L ALT (21-72) U/L Alkaline Phosphatase (38-126) U/L Total Creatine Kinase 120 (55-170) U/L CK-MB (CK-2) 1.8 (0.0-2.4) ng/mL CK-MB (CK-2) Rel Index 1.5 Troponin I 0.028 (0.000-0.034) ng/mL NT-Pro-B Natriuret Pep pg/mL Total Protein (6.3-8.2) g/dL Albumin (3.5-5.0) g/dL 09/13/18 09/13/18 09/13/18 Range/Units 05:09 05:09 05:09 WBC (3.8-10.6) k/uL RBC (4.30-5.90) m/uL Hgb (13.0-17.5) gm/dL Hct (39.0-53.0) % MCV (80.0-100.0) fL MCH (25.0-35.0) pg MCHC (31.0-37.0) g/dL RDW (11.5-15.5) % Plt Count (150-450) k/uL Neutrophils % % Lymphocytes % % Monocytes % % Eosinophils % % Basophils % % Neutrophils # (1.3-7.7) k/uL Lymphocytes # (1.0-4.8) k/uL Monocytes # (0-1.0) k/uL Eosinophils # (0-0.7) k/uL Basophils # (0-0.2) k/uL Hypochromasia PT 9.6 (9.0-12.0) sec INR 0.9 (<1.2) APTT 24.3 (22.0-30.0) sec D-Dimer 1.04 H (<0.60) mg/L FEU Sodium 144 (137-145) mmol/L Potassium 4.4 (3.5-5.1) mmol/L Chloride 105 (98-107) mmol/L Carbon Dioxide 26 (22-30) mmol/L Anion Gap 13 mmol/L BUN 28 H (9-20) mg/dL Creatinine 1.67 H (0.66-1.25) mg/dL Est GFR (CKD-EPI)AfAm 46 (>60 ml/min/1.73 sqM) Est GFR (CKD-EPI)NonAf 40 (>60 ml/min/1.73 sqM) Glucose 261 H (74-99) mg/dL POC Glucose (mg/dL) (75-99) mg/dL POC Glu Analog Device Designer ID Calcium 9.9 (8.4-10.2) mg/dL Total Bilirubin 0.4 (0.2-1.3) mg/dL AST 25 (17-59) U/L ALT 29 (21-72) U/L Alkaline Phosphatase 91 (38-126) U/L Total Creatine Kinase (55-170) U/L CK-MB (CK-2) (0.0-2.4) ng/mL CK-MB (CK-2) Rel Index Troponin I (0.000-0.034) ng/mL NT-Pro-B Natriuret Pep 438 pg/mL Total Protein 7.2 (6.3-8.2) g/dL Albumin 4.4 (3.5-5.0) g/dL Interpretation: other (The ECG appears show paced rhythm at approximately 112 bpm.) Critical Care Time Critical Care Time: Yes (45 minutes) Disposition Clinical Impression: Congestive heart failure, Elevated d-dimer Disposition: HOME SELF-CARE Condition: Fair Is patient prescribed a controlled substance at d/c from ED?: No
[2018-09-13] MEDS ORDERED: NITROGLYCERIN-D5W PMX 50 MG in DEXTROSE/WATER 1 250ML.BAG IV STA (05:24)
--- NOTE | 2018-09-13 05:58 | XR ---
EXAM: XR Chest, 1 View CLINICAL HISTORY: ITS.REASON XR Reason: dyspnea TECHNIQUE: Frontal view of the chest. COMPARISON: 06/13/18. FINDINGS: Lungs: Right greater than left lung opacities with possible trace pleural effusions. Pleural space: No pneumothorax. Heart: Stable cardiomediastinal silhouette and left chest pacemaker. Mediastinum: See above. Bones/joints: No acute fracture. IMPRESSION: Right greater than left lung opacities with possible trace pleural effusions. Correlate clinically for infection or edema.
[2018-09-13 06:16] LABS: INR 0.9 (<1.2); Partial Thromboplastin Time 24.3 sec (22.0-30.0); Prothrombin Time 9.6 sec (9.0-12.0)
[2018-09-13 06:21] LABS: Albumin 4.4 g/dL (3.5-5.0); Calcium 9.9 mg/dL (8.4-10.2); Potassium 4.4 mmol/L (3.5-5.1); Total Bilirubin 0.4 mg/dL (0.2-1.3); Total Protein 7.2 g/dL (6.3-8.2)
[2018-09-13 06:43] LABS: Basophils # (A) 0.1 k/uL (0-0.2); Basophils % (A) 1 %; Eosinophils # (A) 0.6 k/uL (0-0.7); Eosinophils % (A) 4 %; HCT 45.1 % (39.0-53.0); HGB 13.8 gm/dL (13.0-17.5); Hypochromasia Slight; Lymphocytes # (A) 4.3 k/uL (1.0-4.8); Lymphocytes % (A) 32 %; MCHC 30.6 g/dL (31.0-37.0); MCV 91.4 fL (80.0-100.0); Mean Platelet Volume 8.1; Monocytes # (A) 0.7 k/uL (0-1.0); Monocytes % (A) 5 %; Neutrophils # (A) 7.3 k/uL (1.3-7.7); Neutrophils % (A) 55 %; Platelet Count 357 k/uL (150-450); RBC 4.93 m/uL (4.30-5.90); RDW 14.5 % (11.5-15.5); WBC 13.4 k/uL (3.8-10.6)
[2018-09-13 07:05] LABS: Creatine Kinase MB 1.8 ng/mL (0.0-2.4); Troponin I 0.028 ng/mL (0.000-0.034)
[2018-09-13 07:09] LABS: D-Dimer 1.04 mg/L FEU (<0.60)
[2018-09-13] MEDS ORDERED: AZITHROMYCIN 500 MG TAB PO STA (07:18)
[2018-09-13] MEDS ORDERED: ENOXAPARIN 100 MG/ML SYRINGE SQ STA (07:19)
[2018-09-13] MEDS ORDERED: ALBUTEROL NEBULIZED 2.5 MG/3 ML INHALATION PRN (07:32)
[2018-09-13] MEDS ORDERED: LOSARTAN 50 MG TAB PO SCH (09:00)
[2018-09-13] MEDS ORDERED: glipiZIDE 10 MG TAB PO SCH (09:00)
[2018-09-13 10:39] VITALS: BMI 30.3
[2018-09-13] MEDS: ISOSORBIDE MONONITRATE ER 30 MG TAB.ER.24H PO SCH (11:04)
[2018-09-13] MEDS: ALLOPURINOL 100 MG TAB PO SCH (11:05)
[2018-09-13] MEDS: PANTOPRAZOLE 40 MG TABLET PO SCH (11:05)
[2018-09-13] MEDS: ASPIRIN 325 MG TAB PO SCH (11:05)
[2018-09-13] MEDS: FUROSEMIDE 40 MG TAB PO SCH (11:06)
[2018-09-13] MEDS: DORZOLAMIDE HCL 2% DROPS 10 ML BTL BOTH EYES SCH ×2 (11:06→21:10)
[2018-09-13] MEDS: ATENOLOL 25 MG TAB PO SCH (11:06)
[2018-09-13] MEDS: ATORVASTATIN 40 MG TAB PO SCH (11:06)
[2018-09-13] MEDS: TIMOLOL 0.5% OPHTH DROPS 5 ML BTL LEFT EYE SCH ×2 (11:07→21:10)
[2018-09-13 11:16] LABS: Glucose,Whole Blood 189 mg/dL (75-99)
--- NOTE | 2018-09-13 12:11 | NM ---
EXAMINATION TYPE: NM pul vent and perfuse DATE OF EXAM: 09/13/2018 COMPARISON: Chest x-ray 09/13/2018, ventilation perfusion scan 11/19/2017 HISTORY: Dyspnea TECHNIQUE: Utilizing inhalation of 69.4 mCi Tc 99m DTPA aerosol and intravenous injection of 5.26 mC i of Tc 99m MAA, ventilation and perfusion images are acquired post injection in multiple projections . FINDINGS: Overall perfusion uptake is more homogenous as compared to ventilation uptake. There is no evidence o f mismatched defects. IMPRESSION: Low probability for pulmonary embolism
--- NOTE | 2018-09-13 13:14 | P.HPIM ---
History of Present Illness 68-year-old gentleman with known history of chronic diastolic dysfunction came in with compensative shortness of breath denied any symptoms orthopnea proximal nocturnal dyspnea complaining of cough unable to bring up much of the chest x- ray is suspicious for pulmonary edema patient does have significant infiltrate the right lower lobe pneumonia cannot be ruled out. Although his BNP is only minimally elevated patient has minimally elevated JVD I'll obtain echocardiogram. Patient is complaining of only clear sputum occasionally. Patient denied any fever chills.he does have leukocytosis. Review of Systems REVIEW OF SYSTEMS: CONSTITUTIONAL: No fever, no malaise, no fatigue. HEENT: No recent visual problems or hearing problems. Denied any sore throat. CARDIOVASCULAR: No chest pain, orthopnea, PND, no palpitations, no syncope. PULMONARY: no hemoptysis. GASTROINTESTINAL: No diarrhea, no nausea, no vomiting, no abdominal pain. NEUROLOGICAL: No headaches, no weakness, no numbness. HEMATOLOGICAL: Denies any bleeding or petechiae. GENITOURINARY: Denies any burning micturition, frequency, or urgency. MUSCULOSKELETAL/RHEUMATOLOGICAL: Denies any joint pain, swelling, or any muscle pain. ENDOCRINE: Denies any polyuria or polydipsia. The rest of the 14-point review of systems is negative. Past Medical History Past Medical History: Heart Failure, Diabetes Mellitus, GERD/Reflux, Hypertension, Pneumonia, Prostate Disorder, Renal Disease Additional Past Medical History / Comment(s): UTI's; glaucoma, pacemaker Last Myocardial Infarction Date:: 2004 History of Any Multi-Drug Resistant Organisms: None Reported Past Surgical History: Heart Catheterization, Pacemaker Additional Past Surgical History / Comment(s): shonna cataract surgery, Past Anesthesia/Blood Transfusion Reactions: No Reported Reaction Type of Cardiac Device: Permanent Pacemaker Device Placement Date:: 12/2013 Past Psychological History: No Psychological Hx Reported Smoking Status: Former smoker - Past Family History Father Family Medical History: Coronary Artery Disease (CAD), Myocardial Infarction ([place] ) Mother Family Medical History: Diabetes Mellitus Medications and Allergies Home Medications Medication Instructions Recorded Confirmed Type Aspirin 325 mg PO DAILY 12/28/13 09/13/18 History Dorzolamide HCl 1 drop BOTH EYES BID 12/28/13 09/13/18 History Latanoprost Ophth [Xalatan 0.005%] 1 drop BOTH EYES HS 12/28/13 09/13/18 History Timolol [Betimol 0.5% Ophth Soln] 1 drop LEFT EYE BID 12/28/13 09/13/18 History Atenolol [Tenormin] 50 mg PO DAILY 11/11/14 09/13/18 History Isosorbide Mononitrate [Isosorbide 30 mg PO DAILY 11/11/14 09/13/18 History Mononitrate ER] Insulin Glargine [Lantus] 40 unit SQ DAILY@1800 07/29/16 09/13/18 History Fish Oil/Dha/Epa [Fish Oil 1,200 1 cap PO DAILY 10/12/17 09/13/18 History mg Fish Oil] Losartan [Cozaar] 50 mg PO DAILY tab 10/12/17 09/13/18 Rx Multivitamins, Thera [Multivitamin 1 tab PO DAILY 10/12/17 09/13/18 History (formulary)] Simvastatin [Zocor] 80 mg PO HS 10/12/17 09/13/18 History Omeprazole 20 mg PO DAILY 11/19/17 09/13/18 History Furosemide [Lasix] 40 mg PO DAILY #30 tablet 11/20/17 09/13/18 Rx Allopurinol [Zyloprim] 150 mg PO DAILY 09/13/18 09/13/18 History Ferrous Sulfate [Feosol] 325 mg PO BID 09/13/18 09/13/18 History Hydrochlorothiazide [Hydrodiuril] 25 mg PO DAILY 09/13/18 09/13/18 History Potassium Chloride [K-Tab ER] 10 meq PO DAILY 09/13/18 09/13/18 History glipiZIDE [Glucotrol] 10 mg PO AC-BID 09/13/18 09/13/18 History Allergies Allergy/AdvReac Type Severity Reaction Status Date / Time No Known Allergies Allergy Verified 09/13/18 09:40 Physical Exam Vitals: Vital Signs Temp Pulse Pulse Resp BP BP Pulse Ox 09/13/18 12:00 98.3 F 73 18 137/66 98 09/13/18 10:15 98.3 F 77 20 147/68 96 09/13/18 09:02 98.0 F 22 97 09/13/18 08:30 72 22 137/60 95 09/13/18 08:00 69 21 135/62 94 L 09/13/18 07:30 67 19 136/60 93 L 09/13/18 07:22 82 22 136/60 97 09/13/18 07:15 65 20 148/67 98 09/13/18 07:00 75 24 130/63 96 09/13/18 06:50 97.8 F 74 21 130/63 97 09/13/18 06:40 75 24 129/65 94 L 09/13/18 06:20 80 23 127/61 94 L 09/13/18 06:03 80 37 H 140/70 96 09/13/18 05:50 97.5 F L 153/69 09/13/18 05:02 99.4 F 117 H 40 H 233/107 89 L Intake and Output 09/12/18 09/13/18 09/13/18 22:59 06:59 14:59 Other: Weight 89.811 kg PHYSICAL EXAMINATION: GENERAL: The patient is alert and oriented x3, not in any acute distress. Well developed, well nourished. HEENT: Pupils are round and equally reacting to light. EOMI. No scleral icterus. No conjunctival pallor. Normocephalic, atraumatic. No pharyngeal erythema. No thyromegaly. CARDIOVASCULAR: S1 and S2 present. No murmurs, rubs, or gallops. PULMONARY: Chest is clear to auscultation, no wheezing or crackles. ABDOMEN: Soft, nontender, nondistended, normoactive bowel sounds. No palpable organomegaly. MUSCULOSKELETAL: No joint swelling or deformity. EXTREMITIES: No cyanosis, clubbing, or pedal edema. NEUROLOGICAL: Gross neurological examination did not reveal any focal deficits. SKIN: No rashes. Results CBC & Chem 7: 09/13/18 05:09 09/13/18 05:09 Labs: Abnormal Lab Results - Last 24 Hours (Table) 09/13/18 09/13/18 09/13/18 Range/Units 05:07 05:09 05:09 WBC 13.4 H (3.8-10.6) k/uL MCHC 30.6 L (31.0-37.0) g/dL D-Dimer (<0.60) mg/L FEU BUN 28 H (9-20) mg/dL Creatinine 1.67 H (0.66-1.25) mg/dL Glucose 261 H (74-99) mg/dL POC Glucose (mg/dL) 258 H (75-99) mg/dL 09/13/18 09/13/18 Range/Units 05:09 11:09 WBC (3.8-10.6) k/uL MCHC (31.0-37.0) g/dL D-Dimer 1.04 H (<0.60) mg/L FEU BUN (9-20) mg/dL Creatinine (0.66-1.25) mg/dL Glucose (74-99) mg/dL POC Glucose (mg/dL) 189 H (75-99) mg/dL Thrombosis Risk Factor Assmnt - Choose All That Apply Each Factor Represents 1 point: Obesity (BMI >25) Each Risk Factor Represents 3 Points: Age 75 years or older Thrombosis Risk Factor Assessment Total Risk Factor Score: 4 Thrombosis Risk Factor Assessment Level: Moderate Risk Assessment and Plan Plan: -shortness of breath: Etiology is not clear can be bilateral pneumonia or pulmonary edema patient received Lasix in ER, I'll hold off further Lasix until evaluation by pulmonary and cardiology. Patient BNP is not highly elevated JVD is only minimally elevated. Patient will be continued on Rocephin and azithromycin. Patient does have chronic diastolic dysfunction. VQ scan is low probably for pulmonary embolism -congestive heart failure chronic diastolic dysfunction with the possible minimal acute exacerbation. Repeat echocardiogram will be obtained -community-acquired pneumonia cannot be ruled out continue with IV antibiotics, we'll consult pulmonary -type 2 diabetes mellitus gastroesophageal reflux disease -Chronic kidney disease stage III from diabetic nephropathy baseline Creatinine around 1.4 presently 1.6, angiotensin receptor lucía will be continued unless creatinine worsens tomorrow -Hypertension
--- NOTE | 2018-09-13 13:44 | P.CRDCN ---
History of Present Illness Consult date: 09/13/18 Chief complaint: Shortness of breath History of present illness: This is a pleasant 73-year-old gentleman who sees Dr. Meyer in the office as an outpatient with a past medical history significant for chronic diastolic congestive heart failure, permanent pacemaker implantation, diabetes mellitus, hypertension, and dyslipidemia, presented to the hospital complaining of shortness of breath. 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 He did not have any symptoms of chest pain or chest discomfort. No dizziness or lightheadedness. He felt sweaty though. No syncope. No lower extremities edema. Because of that the patient decided to come to the emergency room. He underwent a chest x-ray which revealed findings consistent with CHF. Also the chest x-ray finding consistent with possible pneumonia. The EKG showed sinus rhythm with LBBB. The first set of troponin came in to be unremarkable. The patient is not aware of any prior history of coronary artery disease or coronary revascularization in the past. The rest of the blood work including a CBC and BMP came in to be unremarkable. The patient was admitted to the hospital and he was started on antibiotic for possible pneumonia as well as his oral diuretics were as soon. In November 2017 he was admitted to the hospital with CHF and at that point his BNP came in to be around only 200. An echocardiogram was performed and showed an EF within normal limits with mild aortic stenosis, moderate MR, mild-to- moderate TR, and moderate pulmonary hypertension. Past Medical History Past Medical History: Heart Failure, Diabetes Mellitus, GERD/Reflux, Hypertension, Pneumonia, Prostate Disorder, Renal Disease Additional Past Medical History / Comment(s): UTI's; glaucoma, pacemaker Last Myocardial Infarction Date:: 2004 History of Any Multi-Drug Resistant Organisms: None Reported Past Surgical History: Heart Catheterization, Pacemaker Additional Past Surgical History / Comment(s): shonna cataract surgery, Past Anesthesia/Blood Transfusion Reactions: No Reported Reaction Type of Cardiac Device: Permanent Pacemaker Device Placement Date:: 12/2013 Past Psychological History: No Psychological Hx Reported Smoking Status: Former smoker - Past Family History Father Family Medical History: Coronary Artery Disease (CAD), Myocardial Infarction ([place] ) Mother Family Medical History: Diabetes Mellitus Medications and Allergies Home Medications Medication Instructions Recorded Confirmed Type Aspirin 325 mg PO DAILY 12/28/13 09/13/18 History Dorzolamide HCl 1 drop BOTH EYES BID 12/28/13 09/13/18 History Latanoprost Ophth [Xalatan 0.005%] 1 drop BOTH EYES HS 12/28/13 09/13/18 History Timolol [Betimol 0.5% Ophth Soln] 1 drop LEFT EYE BID 12/28/13 09/13/18 History Atenolol [Tenormin] 50 mg PO DAILY 11/11/14 09/13/18 History Isosorbide Mononitrate [Isosorbide 30 mg PO DAILY 11/11/14 09/13/18 History Mononitrate ER] Insulin Glargine [Lantus] 40 unit SQ DAILY@1800 07/29/16 09/13/18 History Fish Oil/Dha/Epa [Fish Oil 1,200 1 cap PO DAILY 10/12/17 09/13/18 History mg Fish Oil] Losartan [Cozaar] 50 mg PO DAILY tab 10/12/17 09/13/18 Rx Multivitamins, Thera [Multivitamin 1 tab PO DAILY 10/12/17 09/13/18 History (formulary)] Simvastatin [Zocor] 80 mg PO HS 10/12/17 09/13/18 History Omeprazole 20 mg PO DAILY 11/19/17 09/13/18 History Furosemide [Lasix] 40 mg PO DAILY #30 tablet 11/20/17 09/13/18 Rx Allopurinol [Zyloprim] 150 mg PO DAILY 09/13/18 09/13/18 History Ferrous Sulfate [Feosol] 325 mg PO BID 09/13/18 09/13/18 History Hydrochlorothiazide [Hydrodiuril] 25 mg PO DAILY 09/13/18 09/13/18 History Potassium Chloride [K-Tab ER] 10 meq PO DAILY 09/13/18 09/13/18 History glipiZIDE [Glucotrol] 10 mg PO AC-BID 09/13/18 09/13/18 History Allergies Allergy/AdvReac Type Severity Reaction Status Date / Time No Known Allergies Allergy Verified 09/13/18 09:40 Physical Exam Vitals: Vital Signs Temp Pulse Pulse Resp BP BP Pulse Ox 09/13/18 12:00 98.3 F 73 18 137/66 98 09/13/18 10:15 98.3 F 77 20 147/68 96 09/13/18 09:02 98.0 F 22 97 09/13/18 08:30 72 22 137/60 95 09/13/18 08:00 69 21 135/62 94 L 09/13/18 07:30 67 19 136/60 93 L 09/13/18 07:22 82 22 136/60 97 09/13/18 07:15 65 20 148/67 98 09/13/18 07:00 75 24 130/63 96 09/13/18 06:50 97.8 F 74 21 130/63 97 09/13/18 06:40 75 24 129/65 94 L 09/13/18 06:20 80 23 127/61 94 L 09/13/18 06:03 80 37 H 140/70 96 09/13/18 05:50 97.5 F L 153/69 09/13/18 05:02 99.4 F 117 H 40 H 233/107 89 L Intake and Output 09/12/18 09/13/18 09/13/18 22:59 06:59 14:59 Intake Total 240 Balance 240 Intake: Oral 240 Other: Weight 89.811 kg - Constitutional General appearance: no acute distress - Respiratory Respiratory: bilateral: rhonchi - Cardiovascular Rhythm: regular Heart sounds: normal: S1, S2 Abnormal Heart Sounds: systolic murmur Results 09/13/18 05:09 09/13/18 05:09 Cardiac Enzymes 09/13/18 09/13/18 Range/Units 05:09 05:09 AST 25 (17-59) U/L CK-MB (CK-2) 1.8 (0.0-2.4) ng/mL Troponin I 0.028 (0.000-0.034) ng/mL Coagulation 09/13/18 Range/Units 05:09 PT 9.6 (9.0-12.0) sec APTT 24.3 (22.0-30.0) sec CBC 09/13/18 Range/Units 05:09 WBC 13.4 H (3.8-10.6) k/uL RBC 4.93 (4.30-5.90) m/uL Hgb 13.8 (13.0-17.5) gm/dL Hct 45.1 (39.0-53.0) % Plt Count 357 (150-450) k/uL Comprehensive Metabolic Panel 09/13/18 Range/Units 05:09 Sodium 144 (137-145) mmol/L Potassium 4.4 (3.5-5.1) mmol/L Chloride 105 (98-107) mmol/L Carbon Dioxide 26 (22-30) mmol/L BUN 28 H (9-20) mg/dL Creatinine 1.67 H (0.66-1.25) mg/dL Glucose 261 H (74-99) mg/dL Calcium 9.9 (8.4-10.2) mg/dL AST 25 (17-59) U/L ALT 29 (21-72) U/L Alkaline Phosphatase 91 (38-126) U/L Total Protein 7.2 (6.3-8.2) g/dL Albumin 4.4 (3.5-5.0) g/dL Current Medications Generic Name Dose Route Start Last Admin Trade Name Freq PRN Reason Stop Dose Admin Albuterol Sulfate 2.5 mg 09/13/18 07:32 Ventolin Nebulized INHALATION RT-Q6H PRN Shortness Of Breath Or Wheezing Allopurinol 150 mg 09/13/18 09:00 09/13/18 11:05 Zyloprim PO 150 mg DAILY EDITH Administration Aspirin 325 mg 09/13/18 09:00 09/13/18 11:05 Aspirin PO 325 mg DAILY EDITH Administration Atenolol 25 mg 09/13/18 09:00 09/13/18 11:06 Tenormin PO 25 mg DAILY EDITH Administration Atorvastatin Calcium 40 mg 09/13/18 09:00 09/13/18 11:06 Lipitor PO 40 mg DAILY EDITH Administration Dorzolamide HCl 1 drops 09/13/18 09:00 09/13/18 11:06 Trusopt BOTH EYES 1 drops BID EDITH Administration Ferrous Sulfate 650 mg 09/13/18 12:00 Feosol PO DAILY@1200 EDITH Furosemide 40 mg 09/13/18 09:00 09/13/18 11:06 Lasix PO 40 mg DAILY EDITH Administration Glipizide 10 mg 09/13/18 09:00 09/13/18 11:05 Glucotrol PO 10 mg DAILY EDITH Administration Heparin Sodium (Porcine) 5,000 unit 09/13/18 16:00 Heparin SQ Q8HR [facility] Insulin Detemir 40 unit 09/13/18 18:00 Levemir SQ DAILY@1800 EDITH Isosorbide Mononitrate 30 mg 09/13/18 10:00 09/13/18 11:04 Imdur PO 30 mg DAILY EDITH Administration Latanoprost 1 drops 09/13/18 21:00 Xalatan 0.005% BOTH EYES HS EDITH Nitroglycerin 1 inch 09/13/18 16:00 Nitro-Bid Oint TOPICAL Q8HR EDITH Pantoprazole Sodium 40 mg 09/13/18 09:00 09/13/18 11:05 Protonix PO 40 mg AC-BRKFST EDITH Administration Sodium Chloride 10 ml 09/13/18 09:00 Saline Flush IV BID EDITH Timolol Maleate 1 drops 09/13/18 09:00 09/13/18 11:07 Timoptic LEFT EYE 1 drops BID EDITH Administration Intake and Output 09/12/18 09/13/18 09/13/18 22:59 06:59 14:59 Intake Total 240 Balance 240 Intake: Oral 240 Other: Weight 89.811 kg 09/13/18 05:09 09/13/18 05:09 Assessment and Plan Assessment: Assessment #1 sudden onset of shortness of breath. No chest pain or chest discomfort. #2 multiple risk factors for coronary artery disease including diabetes, hypertension, dyslipidemia #3 chronic diastolic congestive heart failure #4 possible pneumonia Plan #1 the patient doesn't seems to be in any overt congestive heart failure at this point. #2 acute coronary syndrome to be ruled out. We'll follow-up with a serial cardiac enzymes. #3 PE was ruled out. The VQ scan showed low priority for PE #4 repeat the echocardiogram since the last echo was done more than a year ago #5 follow-up with the patient. Thank you for allowing us participate in his care and we will continue following up with the patient
[2018-09-13] MEDS: FERROUS SULFATE 325 MG TAB PO SCH (14:42)
[2018-09-13] MEDS: NITROGLYCERIN OINT 1 INCH/GM PACKET TOPICAL SCH ×2 (15:31→23:07)
[2018-09-13] MEDS: HEPARIN SODIUM,PORCINE 5,000 UNIT/ML 1 ML VIAL SQ SCH ×2 (15:41→23:12)
[2018-09-13 16:13] LABS: Glucose,Whole Blood 153 mg/dL (75-99)
[2018-09-13] MEDS ORDERED: LANTUS 100 UNIT/ML SQ SCH (18:00)
[2018-09-13] MEDS ORDERED: INSULIN DETEMIR 100 UNIT/ML 10 ML VIAL SQ SCH (18:00)
[2018-09-13] MEDS: glipiZIDE 10 MG TAB PO SCH (18:13)
[2018-09-13 20:58] LABS: Glucose,Whole Blood 296 mg/dL (75-99)
[2018-09-13] MEDS ORDERED: LATANOPROST 0.005% OPHTH DROPS 2.5 ML BTL BOTH EYES SCH (21:00)
[2018-09-14 05:04] LABS: Glucose,Whole Blood 71 mg/dL (75-99)
[2018-09-14] MEDS: PANTOPRAZOLE 40 MG TABLET PO SCH (06:24)
[2018-09-14 06:28] LABS: Glucose,Whole Blood 135 mg/dL (75-99)
[2018-09-14 06:31] LABS: HCT 34.9 % (39.0-53.0); Hypochromasia Slight; MCH 27.4 pg (25.0-35.0); MCHC 30.2 g/dL (31.0-37.0); MCV 90.6 fL (80.0-100.0); Mean Platelet Volume 7.7; Platelet Count 286 k/uL (150-450); RBC 3.85 m/uL (4.30-5.90); RDW 14.5 % (11.5-15.5); WBC 11.8 k/uL (3.8-10.6)
[2018-09-14 06:35] LABS: HGB 10.5 gm/dL (13.0-17.5)
[2018-09-14 06:55] LABS: Calcium 8.8 mg/dL (8.4-10.2); Potassium 3.8 mmol/L (3.5-5.1)
[2018-09-14] MEDS: NITROGLYCERIN OINT 1 INCH/GM PACKET TOPICAL SCH (08:54)
[2018-09-14] MEDS: ASPIRIN 325 MG TAB PO SCH (08:56)
[2018-09-14] MEDS: ALLOPURINOL 100 MG TAB PO SCH (08:56)
[2018-09-14] MEDS: FUROSEMIDE 40 MG TAB PO SCH (08:57)
[2018-09-14] MEDS: ATORVASTATIN 40 MG TAB PO SCH (08:57)
[2018-09-14] MEDS: ATENOLOL 25 MG TAB PO SCH (08:57)
[2018-09-14] MEDS: TIMOLOL 0.5% OPHTH DROPS 5 ML BTL LEFT EYE SCH (08:58)
[2018-09-14] MEDS: ISOSORBIDE MONONITRATE ER 30 MG TAB.ER.24H PO SCH (08:58)
[2018-09-14] MEDS: glipiZIDE 10 MG TAB PO SCH (08:58)
[2018-09-14] MEDS: DORZOLAMIDE HCL 2% DROPS 10 ML BTL BOTH EYES SCH (08:58)
[2018-09-14] MEDS: HEPARIN SODIUM,PORCINE 5,000 UNIT/ML 1 ML VIAL SQ SCH (08:59)
[2018-09-14] MEDS ORDERED: ENOXAPARIN 40 MG/0.4 ML SYRINGE SQ SCH (09:00)
[2018-09-14 09:10] VITALS: RESP 16
--- NOTE | 2018-09-14 10:14 | ECHOF ---
Referral Reason:CHF exacerbation MEASUREMENTS -------- HEIGHT: 172.7 cm WEIGHT: 90.3 kg BP: 166/72 RVIDd: 3.3 cm (< 3.3) IVSd: 1.5 cm (0.6 - 1.1) LVIDd: 3.8 cm (3.9 - 5.3) LVPWd: 1.6 cm (0.6 - 1.1) IVSs: 2.0 cm LVIDs: 3.0 cm LVPWs: 2.0 cm LA Diam: 4.6 cm (2.7 - 3.8) LAESV Index (A-L): 45.79 ml/m Ao Diam: 3.2 cm (2.0 - 3.7) AV Cusp: 2.1 cm (1.5 - 2.6) MV EXCURSION: 15.488 mm (> 18.000) MV EF SLOPE: 55 mm/s (70 - 150) EPSS: 0.2 cm MV E Silas: 1.09 m/s MV DecT: 196 ms MV A Silas: 0.63 m/s MV E/A Ratio: 1.72 AV maxP.78 mmHg AV meanP.32 mmHg AR PHT: 1017 ms RAP: 5.00 mmHg RVSP: 46.67 mmHg FINDINGS -------- Paced rhythm. This was a technically good study. The left ventricular size is normal. There is moderate concentric left ventricular hypertrophy. O verall left ventricular systolic function is normal with, an EF between 60 - 65 %. The right ventricle is normal in size. LA is severely dilated >40 ml/m2 The right atrium is normal in size. The aortic valve is trileaflet and appears structurally normal. There is mild aortic valve sclerosi s. There is mild aortic regurgitation. There is mild aortic stenosis present. Peak/mean gradien t across the Aortic Valve is 24.78mmHg / 14.32mmHg. Mild mitral regurgitation is present. Mild tricuspid regurgitation present. There is moderate pulmonary hypertension. The right ventric ular systolic pressure, as measured by Doppler, is 46.67mmHg. Trace/mild (physiologic) pulmonic regurgitation. The aortic root size is normal. Normal inferior vena cava with normal inspiratory collapse consistent with estimated right atrial pre ssure of 5 mmHg. The inferior vena cava is mildly dilated. There is no pericardial effusion. CONCLUSIONS -------- 1. Paced rhythm. 2. This was a technically good study. 3. The left ventricular size is normal. 4. There is moderate concentric left ventricular hypertrophy. 5. Overall left ventricular systolic function is normal with, an EF between 60 - 65 %. 6. The right ventricle is normal in size. 7. LA is severely dilated >40 ml/m2 8. The right atrium is normal in size. 9. The aortic valve is trileaflet and appears structurally normal. 10. There is mild aortic valve sclerosis. 11. There is mild aortic regurgitation. 12. There is mild aortic stenosis present. 13. Peak/mean gradient across the Aortic Valve is 24.78mmHg / 14.32mmHg. 14. Mild mitral regurgitation is present. 15. Mild tricuspid regurgitation present. 16. There is moderate pulmonary hypertension. 17. The right ventricular systolic pressure, as measured by Doppler, is 46.67mmHg. 18. Trace/mild (physiologic) pulmonic regurgitation. 19. The aortic root size is normal. 20. Normal inferior vena cava with normal inspiratory collapse consistent with estimated right atrial pressure of 5 mmHg. 21. The inferior vena cava is mildly dilated. 22. There is no pericardial effusion. OPERATIONS INTERN: Sadie Gao RDCS
--- NOTE | 2018-09-14 10:29 | P.PN ---
Subjective Progress Note Date: 09/14/18 Principal diagnosis: CHF This is a pleasant 73-year-old gentleman who sees Dr. Meyer in the office as an outpatient with a past medical history significant for chronic diastolic congestive heart failure, permanent pacemaker implantation, diabetes mellitus, hypertension, and dyslipidemia, presented to the hospital complaining of shortness of breath. 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 He did not have any symptoms of chest pain or chest discomfort. No dizziness or lightheadedness. He felt sweaty though. No syncope. No lower extremities edema. Because of that the patient decided to come to the emergency room. He underwent a chest x-ray which revealed findings consistent with CHF. Also the chest x-ray finding consistent with possible pneumonia. The EKG showed sinus rhythm with LBBB. The first set of troponin came in to be unremarkable. The patient is not aware of any prior history of coronary artery disease or coronary revascularization in the past. The rest of the blood work including a CBC and BMP came in to be unremarkable. The patient was admitted to the hospital and he was started on antibiotic for possible pneumonia as well as his oral diuretics were as soon. On follow-up with the patient today, September 142018, the patient is doing overall better. He would like to be discharged home. From a cardiovascular standpoint of view, he might be able to go home. Objective - Vital Signs Vital signs: Vital Signs Temp 98.4 F 09/14/18 08:25 Pulse 81 09/14/18 08:25 Resp 16 09/14/18 08:25 BP 136/60 09/14/18 08:25 Pulse Ox 97 09/14/18 08:25 Intake & Output 09/13/18 09/14/18 09/14/18 18:59 06:59 18:59 Intake Total 480 240 Output Total 500 Balance -20 240 Weight 90.3 kg Intake: Oral 480 240 Output: Urine 500 Other: Voiding Method Self-Catheterization # Voids 1 - Constitutional General appearance: Present: no acute distress - Respiratory Respiratory: bilateral: CTA - Cardiovascular Rhythm: regular Heart sounds: normal: S1, S2 Abnormal Heart Sounds: Present: systolic murmur - Labs CBC & Chem 7: 09/14/18 05:57 09/14/18 05:57 Labs: Abnormal Lab Results - Last 24 Hours (Table) 09/13/18 09/13/18 09/13/18 Range/Units 11:09 16:08 20:57 WBC (3.8-10.6) k/uL RBC (4.30-5.90) m/uL Hgb (13.0-17.5) gm/dL Hct (39.0-53.0) % MCHC (31.0-37.0) g/dL BUN (9-20) mg/dL Creatinine (0.66-1.25) mg/dL Glucose (74-99) mg/dL POC Glucose (mg/dL) 189 H 153 H 296 H (75-99) mg/dL 09/14/18 09/14/18 09/14/18 Range/Units 05:03 05:57 05:57 WBC 11.8 H (3.8-10.6) k/uL RBC 3.85 L (4.30-5.90) m/uL Hgb 10.5 L D (13.0-17.5) gm/dL Hct 34.9 L (39.0-53.0) % MCHC 30.2 L (31.0-37.0) g/dL BUN 26 H (9-20) mg/dL Creatinine 1.49 H (0.66-1.25) mg/dL Glucose 121 H (74-99) mg/dL POC Glucose (mg/dL) 71 L (75-99) mg/dL 09/14/18 Range/Units 06:27 WBC (3.8-10.6) k/uL RBC (4.30-5.90) m/uL Hgb (13.0-17.5) gm/dL Hct (39.0-53.0) % MCHC (31.0-37.0) g/dL BUN (9-20) mg/dL Creatinine (0.66-1.25) mg/dL Glucose (74-99) mg/dL POC Glucose (mg/dL) 135 H (75-99) mg/dL Assessment and Plan Assessment: Assessment #1 sudden onset of shortness of breath. No chest pain or chest discomfort. #2 multiple risk factors for coronary artery disease including diabetes, hypertension, dyslipidemia #3 chronic diastolic congestive heart failure #4 possible pneumonia Plan #1 continue the current medical regimen #2 from the cardiovascular standpoint of view, patient can be discharged home
--- NOTE | 2018-09-14 11:26 | XR ---
EXAMINATION TYPE: XR chest 1V DATE OF EXAM: 09/14/2018 COMPARISON: 09/13/2018 HISTORY: 73-year-old male with shortness of breath TECHNIQUE: Single frontal view of the chest is obtained. FINDINGS: Left anterior chest wall pacemaker generator with right atrial and right ventricular leads. Heart rem ains mildly enlarged. Atherosclerotic arch calcifications. Improving aeration throughout the right carlos ng. Patchy left basilar opacity persists. IMPRESSION: 1. Similar mild cardiomegaly. 2. Significantly improving aeration particularly throughout the right lung. Small left pleural effusi on with adjacent atelectasis and/or consolidation may remain.
[2018-09-14 11:47] LABS: Glucose,Whole Blood 102 mg/dL (75-99)
--- NOTE | 2018-09-14 12:28 | P.PN ---
Subjective 68-year-old gentleman with known history of chronic diastolic dysfunction came in with compensative shortness of breath denied any symptoms orthopnea proximal nocturnal dyspnea complaining of cough unable to bring up much of the chest x- ray is suspicious for pulmonary edema patient does have significant infiltrate the right lower lobe pneumonia cannot be ruled out. Although his BNP is only minimally elevated patient has minimally elevated JVD I'll obtain echocardiogram. Patient is complaining of only clear sputum occasionally. Patient denied any fever chills.he does have leukocytosis. 09/14/2018 Patient is clinically doing well patient's pulmonary edema completed resolved patient's pulmonary edema is probably because of valvular heart disease and they 're chronic diastolic dysfunction with mild acute exacerbation. Patient had normal ejection fraction actually his EF is 60%. Patient's Lasix dose will be increased hydrochlorothiazide will be discontinued will increase the dose of her potassium as well losartan will be resumed. My suspicion is the low for pneumonia but will discharge the patient on 5 more days of antibiotic as I cannot completely rule out right lower lobe pneumonia. PHYSICAL EXAMINATION: GENERAL: The patient is alert and oriented x3, not in any acute distress. Well developed, well nourished. HEENT: Pupils are round and equally reacting to light. EOMI. No scleral icterus. No conjunctival pallor. Normocephalic, atraumatic. No pharyngeal erythema. No thyromegaly. CARDIOVASCULAR: S1 and S2 present. No murmurs, rubs, or gallops. PULMONARY: Chest is clear to auscultation, no wheezing or crackles. ABDOMEN: Soft, nontender, nondistended, normoactive bowel sounds. No palpable organomegaly. MUSCULOSKELETAL: No joint swelling or deformity. EXTREMITIES: No cyanosis, clubbing, or pedal edema. NEUROLOGICAL: Gross neurological examination did not reveal any focal deficits. SKIN: No rashes. Assessment and Plan Plan: -shortness of breath: Due to above-mentioned reasons most probably secondary to congestive heart failure chronic diastolic dysfunction with mild acute exacerbation possibly of pneumonia is low -congestive heart failure chronic diastolic dysfunction with the acute exacerbation. -community-acquired pneumonia cannot be ruled out -type 2 diabetes mellitus gastroesophageal reflux disease -Chronic kidney disease stage III from diabetic nephropathy baseline Creatinine around 1.4 and his creatinine is at his baseline today creatinine did improve to 1.4 from 1.6 with diuretic therapy -Hypertension Objective - Vital Signs Vital signs: Vital Signs Temp 98.4 F 09/14/18 08:25 Pulse 81 09/14/18 08:25 Resp 16 09/14/18 08:25 BP 136/60 09/14/18 08:25 Pulse Ox 97 09/14/18 08:25 Intake & Output 09/13/18 09/14/18 09/14/18 18:59 06:59 18:59 Intake Total 480 240 Output Total 500 Balance -20 240 Weight 90.3 kg Intake: Oral 480 240 Output: Urine 500 Other: Voiding Method Self-Catheterization # Voids 1 1 - Labs CBC & Chem 7: 09/14/18 05:57 09/14/18 05:57 Labs: Abnormal Lab Results - Last 24 Hours (Table) 09/13/18 09/13/18 09/14/18 Range/Units 16:08 20:57 05:03 WBC (3.8-10.6) k/uL RBC (4.30-5.90) m/uL Hgb (13.0-17.5) gm/dL Hct (39.0-53.0) % MCHC (31.0-37.0) g/dL BUN (9-20) mg/dL Creatinine (0.66-1.25) mg/dL Glucose (74-99) mg/dL POC Glucose (mg/dL) 153 H 296 H 71 L (75-99) mg/dL 09/14/18 09/14/18 09/14/18 Range/Units 05:57 05:57 06:27 WBC 11.8 H (3.8-10.6) k/uL RBC 3.85 L (4.30-5.90) m/uL Hgb 10.5 L D (13.0-17.5) gm/dL Hct 34.9 L (39.0-53.0) % MCHC 30.2 L (31.0-37.0) g/dL BUN 26 H (9-20) mg/dL Creatinine 1.49 H (0.66-1.25) mg/dL Glucose 121 H (74-99) mg/dL POC Glucose (mg/dL) 135 H (75-99) mg/dL 09/14/18 Range/Units 11:46 WBC (3.8-10.6) k/uL RBC (4.30-5.90) m/uL Hgb (13.0-17.5) gm/dL Hct (39.0-53.0) % MCHC (31.0-37.0) g/dL BUN (9-20) mg/dL Creatinine (0.66-1.25) mg/dL Glucose (74-99) mg/dL POC Glucose (mg/dL) 102 H (75-99) mg/dL
[2018-09-14] MEDS: FERROUS SULFATE 325 MG TAB PO SCH (12:33)
[2018-09-14 12:47] VITALS: BP 130/65; PULSE 63; TEMP 98.1
--- NOTE | 2018-09-14 16:17 | CONS ---
CONSULTATION PULMONARY/CRITICAL CARE CONSULTATION: DATE OF CONSULTATION: 09/14/2018 This is a 73-year-old male who was admitted on September 13. He apparently was initially seen by his primary care physician for shortness of breath. The patient had not been feeling well for a day or two prior to admission. The patient got up in the morning to take a shower prior to admission and started becoming more and more short of breath. He was coughing and having some clear phlegm production. No fever or chills. The patient denied any chest pain or chest discomfort. There was no nausea, vomiting or diarrhea. The patient was seen in the emergency room and admitted with a diagnosis of pneumonia. The patient may or may not be discharged from the hospital today. I did recommend that he have a followup in the office to make sure that his pneumonic process completely clears. The patient typically gets his health care from the [facility]. HOME MEDICATIONS: Include: 1. Zyloprim. 2. Aspirin. 3. Dorzolamide eyedrops. 4. Iron. 5. Atenolol. 6. Imdur. 7. Insulin. 8. Glipizide. 9. Fish oil. 10.Multivitamins. 11.Potassium. 12.Zocor. 13.Omeprazole. In the past, he has also been on Cozaar, albuterol inhaler, Augmentin and Lasix. ALLERGIES: DENIED. PAST MEDICAL HISTORY: Includes: 1. Congestive heart failure. 2. Diabetes mellitus. 3. Gastroesophageal reflux disease. 4. Hypertension. 5. Pneumonia. 6. Chronic kidney disease. 7. He apparently also has a previous history of benign prostatic hypertrophy. 8. In addition, he suffers from glaucoma. 9. He has had a pacemaker inserted. 10.He has had multiple urinary tract infections. 11.He did have a myocardial infarction in 2004. 12.He has had pacemaker insertion. 13.Bilateral cataract surgery. 14.Heart catheterization. SOCIAL HISTORY: Positive for previous tobacco use. Does not smoke currently. FAMILY HISTORY: Positive for myocardial infarction, CAD and diabetes mellitus. REVIEW OF SYSTEMS: CONSTITUTIONAL: Negative. NEUROLOGIC: Negative. HEENT: Negative. CARDIOVASCULAR: Negative. PULMONARY: Shortness of breath, chest congestion, cough, phlegm production, wheezing, chest tightness. GI/: Negative. RHEUMATOLOGIC: Negative. IMMUNOLOGIC: Negative. ENDOCRINOLOGIC: Negative. DERMATOLOGIC: Negative. PHYSICAL EXAMINATION: Current vital signs are reviewed. His temperature is 98.1, heart rate 63, respiratory rate 16, blood pressure 130/65, mean 86, and room-air saturation 91% to 94%. He appears in no acute distress. He looks pretty comfortable. Not short of breath. No conversational dyspnea. No use of accessory muscles. HEENT examination is grossly unremarkable. Mucous membranes are moist. No oral lesions. NECK: Supple. Full range of motion. No adenopathy, thyromegaly or neck vein distention. Cardiovascular examination reveals regular rhythm and rate. S1, S2 normal. No S3, S4 or murmur. Heart rate 80. Lungs reveal a few scattered coarse rhonchi. No wheezes or crackles. Breath sounds are diminished. ABDOMEN: Soft. Bowel sounds are heard. Extremities are intact. No cyanosis, clubbing or edema. Skin without rash. Neurologic examination is brief but nonfocal. IMAGING: The patient had a chest x-ray done on 09/13/2018. It shows bilateral lung opacities, right greater than left. A lung scan was done on 09/13/2018 which was low probability for pulmonary embolism. A follow-up chest x-ray was done on 09/14/2018 which showed improved aeration, particularly in the right lung. There is some mild cardiomegaly. There may be small effusions as well. Microbiologic studies are negative. LABS: Reviewed. White count 11.8, hemoglobin 10.5, hematocrit 34.9, platelet count 286,000. Sodium, potassium, chloride normal. CO2 normal. Anion gap normal. BUN and creatinine were 26 and 1.49. The patient's N-terminal proBNP was only 438. The troponin level was 0.028. MEDICATIONS: Medications are reviewed. He is currently on Rocephin and azithromycin. He is also getting Lovenox. ASSESSMENT: 1. Pneumonia, community-acquired, improved. 2. History of heart failure. 3. Diabetes mellitus. 4. Gastroesophageal reflux disease. 5. Hypertension. 6. History of pneumonia. 7. Status post permanent pacemaker insertion. 8. History of glaucoma. 9. History of urinary tract infection. 10.Previous heart catheterization. PLAN: The patient will be discharged home possibly by the primary service today. I did suggest to the patient that he come up and see me in the office. We need followup so we can follow up for x-ray resolution. He is seemingly doing relatively well today. The hospitalist will decide on the antibiotics. No additional recommendations are made. He needs to follow up with his primary care physician as well. LIVIER / INGRIS: [id number] / [id number]
== END 2018-09-14 14:12 | disposition home or self-care (01) | DRG 291 ==
LOC: EC 05:00 → 3SCARD 07:18
PROVIDERS: ADMIT Hospitalist; ATTEND Hospitalist
PROC: 5A09357 Assistance with Respiratory Ventilation, Less than 24 Consecutive Hours, Continuous Positive Airway Pressure (ICD-10-PCS; principal; 2018-09-13)
DX: I13.0 Hypertensive heart and chronic kidney disease with heart failure and stage 1 through stage 4 chronic kidney disease, or unspecified chronic kidney disease (principal); I50.33 Acute on chronic diastolic (congestive) heart failure; J18.9 Pneumonia, unspecified organism; I16.1 Hypertensive emergency; E11.22 Type 2 diabetes mellitus with diabetic chronic kidney disease; I27.20 Pulmonary hypertension, unspecified; I08.3 Combined rheumatic disorders of mitral, aortic and tricuspid valves; N18.3 Chronic kidney disease, stage 3 (moderate); I44.7 Left bundle-branch block, unspecified; I25.2 Old myocardial infarction; K21.9 Gastro-esophageal reflux disease without esophagitis; H40.9 Unspecified glaucoma; N40.0 Benign prostatic hyperplasia without lower urinary tract symptoms; E78.5 Hyperlipidemia, unspecified; E66.9 Obesity, unspecified; Z68.30 Body mass index [BMI] 30.0-30.9, adult; Z71.3 Dietary counseling and surveillance; Z79.82 Long term (current) use of aspirin; Z79.4 Long term (current) use of insulin; Z79.899 Other long term (current) drug therapy; Z95.0 Presence of cardiac pacemaker; Z87.440 Personal history of urinary (tract) infections; Z87.891 Personal history of nicotine dependence; Z87.01 Personal history of pneumonia (recurrent); Z98.42 Cataract extraction status, left eye; Z98.41 Cataract extraction status, right eye; Z82.49 Family history of ischemic heart disease and other diseases of the circulatory system; Z83.3 Family history of diabetes mellitus
CPT/HCPCS: 36415; 71045; 78582; 80048; 80053; 82550; 82553; 83880; 84484; 85025; 85027; 85379; 85610; 85730; 93005; 93306; 94660; 94760; 96365; 96366; 96372; 99291

== ENCOUNTER 2019-07-11 16:59 | Emergency (ER) | payer MEDICARE, BC ==
--- NOTE | 2019-07-11 18:20 | XR ---
EXAMINATION TYPE: XR chest 2V DATE OF EXAM: 07/11/2019 COMPARISON: Prior chest x-ray dated 09/28/2018, 09/14/2018 HISTORY: Hemoptysis, cough, congestive heart failure TECHNIQUE: Frontal and lateral views of the chest are obtained. FINDINGS: There is a generator in left pectoral region, leads are again noted in the right atrium and ventricle. There is no focal air space opacity, pleural effusion, or pneumothorax seen. The cardiac silhouette size is within normal limits. The osseous structures are stable. IMPRESSION: No acute cardiopulmonary process.
[2019-07-11 18:26] LABS: Basophils # (A) 0.1 k/uL (0-0.2); Basophils % (A) 1 %; Eosinophils # (A) 0.7 k/uL (0-0.7); Eosinophils % (A) 7 %; HCT 39.4 % (39.0-53.0); HGB 12.9 gm/dL (13.0-17.5); Lymphocytes # (A) 1.7 k/uL (1.0-4.8); Lymphocytes % (A) 17 %; MCH 30.8 pg (25.0-35.0); MCHC 32.7 g/dL (31.0-37.0); Mean Platelet Volume 7.9; Monocytes # (A) 0.5 k/uL (0-1.0); Monocytes % (A) 5 %; Neutrophils # (A) 6.8 k/uL (1.3-7.7); Neutrophils % (A) 69 %; Platelet Count 214 k/uL (150-450); RDW 14.5 % (11.5-15.5); WBC 9.9 k/uL (3.8-10.6)
[2019-07-11 18:30] LABS: INR 0.9 (<1.2); Partial Thromboplastin Time 23.8 sec (22.0-30.0); Prothrombin Time 9.4 sec (9.0-12.0)
[2019-07-11 18:34] LABS: Calcium 9.2 mg/dL (8.4-10.2); Potassium 4.3 mmol/L (3.5-5.1); Total Bilirubin 0.4 mg/dL (0.2-1.3); Total Protein 6.4 g/dL (6.3-8.2)
--- NOTE | 2019-07-11 18:40 | ED ---
General Adult HPI - General Chief complaint: Upper Respiratory Infection Stated complaint: coughing up blood Time Seen by Provider: 07/11/19 17:38 Source: patient, RN notes reviewed, old records reviewed Mode of arrival: ambulatory Limitations: no limitations - History of Present Illness Initial comments: 74-year-old male patient passed no history of CHF, chronic kidney disease presents ED chief complaint of cough for 2 days. Patient reports that he cou ghed up some brown sputum today. Also reports that there may have been a blood clot in there. Patient denies any chest pain. Patient denies any shortness of breath. Denies any recent travel, history of VTE, pain in legs. Systemic: Pt denies fatigue, fever/chills, rash. Pt denies weakness, night sweats, weight loss. Neuro: Pt denies headache, visual disturbances, syncope or pre-syncope. HEENT: Pt denies ocular discharge or irritation, otalgia, rhinorrhea, pharyngitis or notable lymphadenopathy. Cardiopulmonary: Pt denies chest pain, SOB, heart palpitations, dyspnea on exertion. Abdominal/GI: Pt denies abdominal pain, n/v/d. : Pt denies dysuria, burning w/ urination, frequency/urgency. Denies new onset urinary or bowel incontinence. MSK: Pt denies myalgia, loss of strength or function in extremities. Neuro: Pt denies new onset weakness, paresthesias. - Related Data Home Medications Medication Instructions Recorded Confirmed Aspirin 325 mg PO DAILY 12/28/13 09/13/18 Dorzolamide HCl 1 drop BOTH EYES BID 12/28/13 09/13/18 Latanoprost Ophth [Xalatan 0.005%] 1 drop BOTH EYES HS 12/28/13 09/13/18 Timolol [Betimol 0.5% Ophth Soln] 1 drop LEFT EYE BID 12/28/13 09/13/18 Atenolol [Tenormin] 50 mg PO DAILY 11/11/14 09/13/18 Isosorbide Mononitrate [Isosorbide 30 mg PO DAILY 11/11/14 09/13/18 Mononitrate ER] Insulin Glargine [Lantus] 40 unit SQ DAILY@1800 07/29/16 09/13/18 Fish Oil/Dha/Epa [Fish Oil 1,200 1 cap PO DAILY 10/12/17 09/13/18 mg Fish Oil] Multivitamins, Thera [Multivitamin 1 tab PO DAILY 10/12/17 09/13/18 (formulary)] Simvastatin [Zocor] 80 mg PO HS 10/12/17 09/13/18 Omeprazole 20 mg PO DAILY 11/19/17 09/13/18 Allopurinol [Zyloprim] 150 mg PO DAILY 09/13/18 09/13/18 Ferrous Sulfate [Iron (65 MG 325 mg PO BID 09/13/18 09/13/18 Elemental)] glipiZIDE [Glucotrol] 10 mg PO AC-BID 09/13/18 09/13/18 Previous Rx's Medication Instructions Recorded Losartan [Cozaar] 50 mg PO DAILY tab 10/12/17 Cefuroxime Axetil [Ceftin] 500 mg PO BID 5 Days #10 tab 09/14/18 Furosemide [Lasix] 40 mg PO BID #30 tablet 09/14/18 Potassium Chloride [K-Tab ER] 10 meq PO BID #0 09/14/18 predniSONE 50 mg PO DAILY #4 tab 07/11/19 Allergies Allergy/AdvReac Type Severity Reaction Status Date / Time No Known Allergies Allergy Verified 07/11/19 17:32 Review of Systems ROS Statement: Those systems with pertinent positive or pertinent negative responses have been documented in the HPI. ROS Other: All systems not noted in ROS Statement are negative. Past Medical History Past Medical History: Heart Failure, Diabetes Mellitus, GERD/Reflux, Hypertension, Pneumonia, Prostate Disorder, Renal Disease Additional Past Medical History / Comment(s): UTI's; glaucoma, Last Myocardial Infarction Date:: 2004 History of Any Multi-Drug Resistant Organisms: None Reported Past Surgical History: Heart Catheterization, Pacemaker Additional Past Surgical History / Comment(s): shonna cataract surgery, Past Anesthesia/Blood Transfusion Reactions: No Reported Reaction Type of Cardiac Device: Permanent Pacemaker Device Placement Date:: 12/2013 Past Psychological History: No Psychological Hx Reported Smoking Status: Former smoker Past Alcohol Use History: None Reported Past Drug Use History: None Reported - Past Family History Father Family Medical History: Coronary Artery Disease (CAD), Myocardial Infarction (ME) Mother Family Medical History: Diabetes Mellitus General Exam - General Exam Comments Initial Comments: Constitutional: NAD, AOX3, Pt has pleasant affect. HEENT: NC/AT, trachea midline, neck supple, no lymphadenopathy. Posterior phary nx non erythematous, without exudates. External ears appear normal, without discharge. Mucous membranes moist. Eyes PERRLA, EOM intact. There is no scleral icterus. No pallor noted. Cardiopulmonary: RRR, no murmurs, rubs or gallops, no JVD noted. Lungs CTAB in anterior and posterior eddy. No peripheral edema. Abdominal exam: Abdomen soft and non-distended. Abdomen non-tender to palpation in all 4 quadrants. Bowel sounds active in LLQ. No hepatosplenomegaly. No ecchymosis Neuro: CN II-XII grossly intact. No nuchal rigidity. No raccon eyes, no gan sign, no hemotympanum. No cervical spinal tenderness. MSK: No posterior calf tenderness bilaterally, homans sign negative bilaterally. Posterior tibialis and radial pulse +2 bilaterally. Sensation intact in upper and lower extremities. Full active ROM in upper and lower extremities, 5/5 stregnth. Limitations: no limitations Course Vital Signs 07/11/19 07/11/19 17:29 17:51 Temperature 98.0 F Pulse Rate 73 Respiratory 20 20 Rate Blood Pressure 123/61 O2 Sat by Pulse 92 L Oximetry Medical Decision Making - Medical Decision Making 74-year-old male patient passed no history of CHF, chronic kidney disease presents ED chief complaint of cough for 2 days. Patient reports that he coughed up some brown sputum today. Also reports that there may have been a blood clot in there. Patient denies any chest pain. Patient denies any shortness of breath. Denies any recent travel, history of VTE, pain in legs. Patient will signs stable, afebrile. Physical exam did not display acute pathology. Investigations are non-impressive. BNP 352. Troponin negative. EKG displayed previous they identified left bundle-branch block. Chest x-ray is negative. Patient likely experiencing a bronchitis-like syndrome. Will discharge with burs steroid treatment. Return to ER if condition worsens. Case discussed and patient seen by Dr. Cardoso. - Lab Data Result diagrams: 07/11/19 18:05 07/11/19 18:05 Lab Results 07/11/19 07/11/19 07/11/19 Range/Units 18:05 18:05 18:05 WBC 9.9 (3.8-10.6) k/uL RBC 4.20 L (4.30-5.90) m/uL Hgb 12.9 L (13.0-17.5) gm/dL Hct 39.4 (39.0-53.0) % MCV 94.0 (80.0-100.0) fL MCH 30.8 (25.0-35.0) pg MCHC 32.7 (31.0-37.0) g/dL RDW 14.5 (11.5-15.5) % Plt Count 214 (150-450) k/uL Neutrophils % 69 % Lymphocytes % 17 % Monocytes % 5 % Eosinophils % 7 % Basophils % 1 % Neutrophils # 6.8 (1.3-7.7) k/uL Lymphocytes # 1.7 (1.0-4.8) k/uL Monocytes # 0.5 (0-1.0) k/uL Eosinophils # 0.7 (0-0.7) k/uL Basophils # 0.1 (0-0.2) k/uL PT 9.4 (9.0-12.0) sec INR 0.9 (<1.2) APTT 23.8 (22.0-30.0) sec Sodium 142 (137-145) mmol/L Potassium 4.3 (3.5-5.1) mmol/L Chloride 108 H (98-107) mmol/L Carbon Dioxide 24 (22-30) mmol/L Anion Gap 10 mmol/L BUN 46 H (9-20) mg/dL Creatinine 1.65 H (0.66-1.25) mg/dL Est GFR (CKD-EPI)AfAm 46 (>60 ml/min/1.73 sqM) Est GFR (CKD-EPI)NonAf 40 (>60 ml/min/1.73 sqM) Glucose 170 H (74-99) mg/dL Plasma Lactic Acid David (0.7-2.0) mmol/L Calcium 9.2 (8.4-10.2) mg/dL Total Bilirubin 0.4 (0.2-1.3) mg/dL AST 19 (17-59) U/L ALT 30 (21-72) U/L Alkaline Phosphatase 75 (38-126) U/L Troponin I (0.000-0.034) ng/mL NT-Pro-B Natriuret Pep pg/mL Total Protein 6.4 (6.3-8.2) g/dL Albumin 4.0 (3.5-5.0) g/dL 07/11/19 07/11/19 07/11/19 Range/Units 18:05 18:05 18:05 WBC (3.8-10.6) k/uL RBC (4.30-5.90) m/uL Hgb (13.0-17.5) gm/dL Hct (39.0-53.0) % MCV (80.0-100.0) fL MCH (25.0-35.0) pg MCHC (31.0-37.0) g/dL RDW (11.5-15.5) % Plt Count (150-450) k/uL Neutrophils % % Lymphocytes % % Monocytes % % Eosinophils % % Basophils % % Neutrophils # (1.3-7.7) k/uL Lymphocytes # (1.0-4.8) k/uL Monocytes # (0-1.0) k/uL Eosinophils # (0-0.7) k/uL Basophils # (0-0.2) k/uL PT (9.0-12.0) sec INR (<1.2) APTT (22.0-30.0) sec Sodium (137-145) mmol/L Potassium (3.5-5.1) mmol/L Chloride (98-107) mmol/L Carbon Dioxide (22-30) mmol/L Anion Gap mmol/L BUN (9-20) mg/dL Creatinine (0.66-1.25) mg/dL Est GFR (CKD-EPI)AfAm (>60 ml/min/1.73 sqM) Est GFR (CKD-EPI)NonAf (>60 ml/min/1.73 sqM) Glucose (74-99) mg/dL Plasma Lactic Acid David 1.0 (0.7-2.0) mmol/L Calcium (8.4-10.2) mg/dL Total Bilirubin (0.2-1.3) mg/dL AST (17-59) U/L ALT (21-72) U/L Alkaline Phosphatase (38-126) U/L Troponin I 0.023 (0.000-0.034) ng/mL NT-Pro-B Natriuret Pep 352 pg/mL Total Protein (6.3-8.2) g/dL Albumin (3.5-5.0) g/dL - EKG Data -: EKG Interpreted by Me (and Dr. Cardoso) EKG Comments: Ventricular rate 71, ND interval 2:30, QRS 134, QT/QTC 452/491. Sinus rhythm with first-degree AV block. Left bundle-branch block. No concern of acute ischemia, no significant change from prior. Disposition Clinical Impression: Cough, Bronchitis Disposition: HOME SELF-CARE Condition: Stable Instructions (If sedation given, give patient instructions): Acute Bronchitis (ED) Additional Instructions: Take Medication as directed. Follow-up with primary care provider tomorrow. Return to ER if condition worsens. Prescriptions: predniSONE 50 mg PO DAILY #4 tab Is patient prescribed a controlled substance at d/c from ED?: No Referrals: [facility],Clinic [Primary Care Provider] - 1-2 days
[2019-07-11] MEDS ORDERED: predniSONE 50 MG TAB PO STA (19:20)
[2019-07-11 19:28] VITALS: BP 149/79; PULSE 76; RESP 18; TEMP 98.3
== END 2019-07-11 19:28 | disposition home or self-care (01) ==
LOC: EC 16:59
DX: J40 Bronchitis, not specified as acute or chronic (principal); I44.7 Left bundle-branch block, unspecified; I11.0 Hypertensive heart disease with heart failure; I50.9 Heart failure, unspecified; E11.9 Type 2 diabetes mellitus without complications; K21.9 Gastro-esophageal reflux disease without esophagitis; H40.9 Unspecified glaucoma; Z79.82 Long term (current) use of aspirin; Z79.899 Other long term (current) drug therapy; Z79.4 Long term (current) use of insulin; Z87.891 Personal history of nicotine dependence; Z95.5 Presence of coronary angioplasty implant and graft; Z95.0 Presence of cardiac pacemaker
CPT/HCPCS: 36415; 93005; 83880; 80053; 83605; 84484; 85025; 85610; 85730; 71046; 99284; J7512

== ENCOUNTER 2020-05-30 15:48 | Observation (INO) | payer BC, MEDICARE ==
--- NOTE | 2020-05-30 16:16 | ED ---
General Adult HPI - General Chief complaint: Neuro Symptoms/Deficit Stated complaint: slurred speech Time Seen by Provider: 05/30/20 16:01 Source: patient Mode of arrival: ambulatory Limitations: no limitations - History of Present Illness Initial comments: Dictation was produced using [employer] dictation software. please excuse any grammatical, word or spelling errors. This patient was cared for during a federal and state declared state of emerge ncy secondary to Covid 19 Chief Complaint: 75-year-old male multiple cardiac, but is presents with slurred speech and left hand weakness History of Present Illness: 75-year-old male who presents today with his . Proximal 1 hour prior to arrival patient had acute onset of slurred speech and left arm weakness. Patient states he disagrees and has felt normal throughout the whole day. wanted to call ambulance however he refused. Instead they came via private vehicle to the emergency department. Patient has a history of stroke. reports that his slurred speech is much improved since it initially started 1 hour ago. He was noted to have some weakness and ataxia to his left hand. The ROS documented in this emergency department record has been reviewed and confirmed by me. Those systems with pertinent positive or negative responses have been documented in the HPI. All other systems are other negative and/or noncontributory. PHYSICAL EXAM: General Impression: Alert and oriented x3, not in acute distress HEENT: Normocephalic atraumatic, extra-ocular movements intact, pupils equal and reactive to light bilaterally, mucous membranes moist. 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 No extremity drift. No facial asymmetry Skin: Intact with no visualized rashes Psych: Normal affect and mood ED course: 75-year-old male presents with clinical presentation concerning for transient ischemic attack. Vital signs upon arrival are within acceptable li mits. Laboratory evaluation obtained. CBC, coag panel, metabolic panel is unremarkable. He does of note have elevated renal markers. This appears to be slightly above his baseline. Cardiac enzymes negative. Computed tomography scan of the brain and chest x-ray are nonacute. Clinical presentation concerning for transient ischemic attack. He has NIH of 0 at bedside. Patient given aspirin. He'll be admitted to [facility] hospitalist group with consultation to neurology. EKG interpretation: Ventricular rate 61, HO paced rhythm,. Interval to 50, QRS 146, QTC 477. No MI prolongation, no QTC prolongation, no ST or T-wave changes noted. . Overall, this EKG is unremarkable - Related Data Home Medications Medication Instructions Recorded Confirmed Aspirin 325 mg PO DAILY 12/28/13 09/13/18 Dorzolamide HCl 1 drop BOTH EYES BID 12/28/13 09/13/18 Latanoprost Ophth [Xalatan 0.005%] 1 drop BOTH EYES HS 12/28/13 09/13/18 Timolol [Betimol 0.5% Ophth Soln] 1 drop LEFT EYE BID 12/28/13 09/13/18 Isosorbide Mononitrate [Isosorbide 30 mg PO DAILY 11/11/14 09/13/18 Mononitrate ER] atenoloL [Tenormin] 50 mg PO DAILY 11/11/14 09/13/18 Insulin Glargine [Lantus] 40 unit SQ DAILY@1800 07/29/16 09/13/18 Fish Oil/Dha/Epa [Fish Oil 1,200 1 cap PO DAILY 10/12/17 09/13/18 mg Fish Oil] Multivitamins, Thera [Multivitamin 1 tab PO DAILY 10/12/17 09/13/18 (formulary)] Simvastatin [Zocor] 80 mg PO HS 10/12/17 09/13/18 Omeprazole 20 mg PO DAILY 11/19/17 09/13/18 Ferrous Sulfate [Iron (65 MG 325 mg PO BID 09/13/18 09/13/18 Elemental)] allopurinoL [Zyloprim] 150 mg PO DAILY 09/13/18 09/13/18 glipiZIDE [Glucotrol] 10 mg PO AC-BID 09/13/18 09/13/18 Previous Rx's Medication Instructions Recorded Losartan [Cozaar] 50 mg PO DAILY tab 10/12/17 Cefuroxime Axetil [Ceftin] 500 mg PO BID 5 Days #10 tab 09/14/18 Furosemide [Lasix] 40 mg PO BID #30 tablet 09/14/18 Potassium Chloride [K-Tab ER] 10 meq PO BID #0 09/14/18 Albuterol Inhaler (Mhu) [Ventolin 1 - 2 puff INHALATION Q4-6H PRN #1 07/11/19 Hfa Inhaler (Mhu)] inhaler predniSONE 50 mg PO DAILY #4 tab 07/11/19 Allergies Allergy/AdvReac Type Severity Reaction Status Date / Time No Known Allergies Allergy Verified 05/30/20 15:50 Review of Systems ROS Statement: Those systems with pertinent positive or pertinent negative responses have been documented in the HPI. ROS Other: All systems not noted in ROS Statement are negative. Past Medical History Past Medical History: Heart Failure, Diabetes Mellitus, GERD/Reflux, Hypertension, Pneumonia, Prostate Disorder, Renal Disease Additional Past Medical History / Comment(s): UTI's; glaucoma, Last Myocardial Infarction Date:: 2004 History of Any Multi-Drug Resistant Organisms: None Reported Past Surgical History: Heart Catheterization, Pacemaker Additional Past Surgical History / Comment(s): shonna cataract surgery, Past Anesthesia/Blood Transfusion Reactions: No Reported Reaction Type of Cardiac Device: Permanent Pacemaker Device Placement Date:: 12/2013 Past Psychological History: No Psychological Hx Reported Smoking Status: Former smoker Past Alcohol Use History: None Reported Past Drug Use History: None Reported - Past Family History Father Family Medical History: Coronary Artery Disease (CAD), Myocardial Infarction (MO) Mother Family Medical History: Diabetes Mellitus General Exam Limitations: no limitations Course Vital Signs 05/30/20 05/30/20 15:50 18:09 Temperature 97.9 F Pulse Rate 77 63 Respiratory 18 16 Rate Blood Pressure 157/68 133/78 O2 Sat by Pulse 98 98 Oximetry Medical Decision Making - Lab Data Result diagrams: 05/30/20 16:27 05/30/20 16:27 Lab Results 05/30/20 05/30/20 05/30/20 Range/Units 16:27 16:27 16:27 WBC 7.2 (3.8-10.6) k/uL RBC 4.58 (4.30-5.90) m/uL Hgb 14.3 (13.0-17.5) gm/dL Hct 44.4 (39.0-53.0) % MCV 97.0 (80.0-100.0) fL MCH 31.3 (25.0-35.0) pg MCHC 32.3 (31.0-37.0) g/dL RDW 13.9 (11.5-15.5) % Plt Count 203 (150-450) k/uL Neutrophils % 64 % Lymphocytes % 24 % Monocytes % 6 % Eosinophils % 3 % Basophils % 1 % Neutrophils # 4.6 (1.3-7.7) k/uL Lymphocytes # 1.7 (1.0-4.8) k/uL Monocytes # 0.5 (0-1.0) k/uL Eosinophils # 0.3 (0-0.7) k/uL Basophils # 0.0 (0-0.2) k/uL PT 9.5 (9.0-12.0) sec INR 0.9 (<1.2) APTT 22.7 (22.0-30.0) sec Sodium 141 (137-145) mmol/L Potassium 4.6 (3.5-5.1) mmol/L Chloride 106 (98-107) mmol/L Carbon Dioxide 24 (22-30) mmol/L Anion Gap 11 mmol/L BUN 51 H (9-20) mg/dL Creatinine 1.75 H (0.66-1.25) mg/dL Est GFR (CKD-EPI)AfAm 43 (>60 ml/min/1.73 sqM) Est GFR (CKD-EPI)NonAf 37 (>60 ml/min/1.73 sqM) Glucose 230 H (74-99) mg/dL Calcium 9.0 (8.4-10.2) mg/dL Total Bilirubin 0.6 (0.2-1.3) mg/dL AST 18 (17-59) U/L ALT 16 (4-49) U/L Alkaline Phosphatase 73 (38-126) U/L Troponin I (0.000-0.034) ng/mL Total Protein 6.4 (6.3-8.2) g/dL Albumin 4.1 (3.5-5.0) g/dL 05/30/20 Range/Units 16:27 WBC (3.8-10.6) k/uL RBC (4.30-5.90) m/uL Hgb (13.0-17.5) gm/dL Hct (39.0-53.0) % MCV (80.0-100.0) fL MCH (25.0-35.0) pg MCHC (31.0-37.0) g/dL RDW (11.5-15.5) % Plt Count (150-450) k/uL Neutrophils % % Lymphocytes % % Monocytes % % Eosinophils % % Basophils % % Neutrophils # (1.3-7.7) k/uL Lymphocytes # (1.0-4.8) k/uL Monocytes # (0-1.0) k/uL Eosinophils # (0-0.7) k/uL Basophils # (0-0.2) k/uL PT (9.0-12.0) sec INR (<1.2) APTT (22.0-30.0) sec Sodium (137-145) mmol/L Potassium (3.5-5.1) mmol/L Chloride (98-107) mmol/L Carbon Dioxide (22-30) mmol/L Anion Gap mmol/L BUN (9-20) mg/dL Creatinine (0.66-1.25) mg/dL Est GFR (CKD-EPI)AfAm (>60 ml/min/1.73 sqM) Est GFR (CKD-EPI)NonAf (>60 ml/min/1.73 sqM) Glucose (74-99) mg/dL Calcium (8.4-10.2) mg/dL Total Bilirubin (0.2-1.3) mg/dL AST (17-59) U/L ALT (4-49) U/L Alkaline Phosphatase (38-126) U/L Troponin I <0.012 (0.000-0.034) ng/mL Total Protein (6.3-8.2) g/dL Albumin (3.5-5.0) g/dL Disposition Clinical Impression: TIA (transient ischemic attack) Disposition: ADMITTED IP TO THIS HOSP Condition: Fair Referrals: [facility],Clinic [Primary Care Provider] - 1-2 days Decision Time: 19:31
[2020-05-30 16:55] LABS: Basophils % (A) 1 %; Eosinophils # (A) 0.3 k/uL (0-0.7); Eosinophils % (A) 3 %; HCT 44.4 % (39.0-53.0); HGB 14.3 gm/dL (13.0-17.5); Lymphocytes # (A) 1.7 k/uL (1.0-4.8); Lymphocytes % (A) 24 %; MCH 31.3 pg (25.0-35.0); MCHC 32.3 g/dL (31.0-37.0); Mean Platelet Volume 9.2; Monocytes # (A) 0.5 k/uL (0-1.0); Monocytes % (A) 6 %; Neutrophils # (A) 4.6 k/uL (1.3-7.7); Neutrophils % (A) 64 %; Platelet Count 203 k/uL (150-450); RBC 4.58 m/uL (4.30-5.90); RDW 13.9 % (11.5-15.5); WBC 7.2 k/uL (3.8-10.6)
[2020-05-30 17:08] LABS: Albumin 4.1 g/dL (3.5-5.0); Potassium 4.6 mmol/L (3.5-5.1); Total Bilirubin 0.6 mg/dL (0.2-1.3); Total Protein 6.4 g/dL (6.3-8.2)
[2020-05-30 17:09] LABS: INR 0.9 (<1.2); Partial Thromboplastin Time 22.7 sec (22.0-30.0); Prothrombin Time 9.5 sec (9.0-12.0)
--- NOTE | 2020-05-30 17:24 | CT ---
EXAMINATION TYPE: CT brain wo con DATE OF EXAM: 05/30/2020 COMPARISON: 12/29/2014 HISTORY: Slurred speech, left sided weakness. CT DLP: 1074.4 mGycm Automated exposure control for dose reduction was used. Images obtained without contrast. There is cerebral cortical atrophy. There is no mass effect nor midline shift. There is no sign of in tracranial hemorrhage. There is no evidence of cerebral edema. The calvarium is intact. Skull base is intact. IMPRESSION: Cerebral atrophy. No acute intracranial abnormality. No change.
--- NOTE | 2020-05-30 17:36 | XR ---
EXAMINATION TYPE: XR chest 2V DATE OF EXAM: 05/30/2020 COMPARISON: 07/11/2019 HISTORY: Altered mental status TECHNIQUE: 2 views FINDINGS: There is no heart failure nor confluent pneumonic infiltrate. There is some linear density behind the heart unchanged and consistent with pulmonary scarring. There is left axillary pacemaker . . Costophrenic angles are clear. Bony thorax is intact. IMPRESSION: No active cardiopulmonary disease. No change.
[2020-05-30] MEDS ORDERED: ASPIRIN 81 MG PO STA (19:25)
[2020-05-30] MEDS ORDERED: NALOXONE 0.4 MG/ML 1 ML VIAL IV PRN (19:28)
[2020-05-30] MEDS ORDERED: ACETAMINOPHEN TAB 325 MG TAB PO PRN (19:28)
[2020-05-30] MEDS ORDERED: ONDANSETRON 4 MG/2 ML VIAL IVP PRN (19:28)
[2020-05-30] MEDS ORDERED: SODIUM CHLORIDE 0.9% 1,000 ML IV SCH (19:30)
[2020-05-30] MEDS ORDERED: DEXTROSE 4 GM CHEWABLE PO PRN (22:00)
[2020-05-30] MEDS ORDERED: ALPRAZolam 0.25 MG TAB PO PRN (22:00)
[2020-05-30] MEDS ORDERED: LATANOPROST 0.005% OPHTH DROPS 2.5 ML BTL BOTH EYES SCH (22:00)
--- NOTE | 2020-05-30 22:30 | HP ---
HISTORY AND PHYSICAL CHIEF COMPLAINTS: Slurring of speech and weakness. HISTORY OF PRESENT ILLNESS: This 75-year-old gentleman with a past medical history of multiple medical problems, including CHF, diabetes mellitus, type 2, GERD, hypertension, pneumonia, history of UTI, glaucoma, history of pacemaker, [facility] [place], was noted to have slurring of speech by his approximately one hour prior to arrival. It lasted for a few minutes. Patient also noted left arm weakness on opening the car door, according to his . But the patient was reporting that he is feeling okay and disagrees with his 's recollection. Ambulance was called and the patient was taken to [facility] and admitted for further evaluation and treatment. There is no history of any fever, rigor or chills. No history of headache, loss of consciousness, seizures. The initial evaluation, including CT scan of the brain, showed only cerebral atrophy. Neurology evaluation has been sought. PAST MEDICAL HISTORY: History of CHF, diabetes mellitus, type 2, GERD, hypertension, hyperlipidemia, UTI, glaucoma. HOME MEDICATIONS: Home medications prior to admission include K-Tab ER 10 mg p.o. daily, Cozaar 50 mg daily, Lasix, Tenormin, isosorbide mononitrate, Glucotrol, elemental iron, fish oil, multivitamins, aspirin, Zocor, Xalatan, Lantus, Betimol, zyloprim. ALLERGIES: NONE. FAMILY HISTORY: History of CAD, myocardial infarction in the family. SOCIAL HISTORY: Previous history of smoking. No current smoking or alcohol. REVIEW OF SYSTEMS: ENT: Diminished hearing. Diminished vision. CARDIOVASCULAR SYSTEM: No angina, palpitations. RESPIRATORY SYSTEM: No cough, hemoptysis. GI: As mentioned earlier. : No dysuria or retention. NERVOUS SYSTEM: As mentioned earlier. ALLERGY/IMMUNOLOGY: No asthma, hayfever. MUSCULOSKELETAL: As mentioned earlier. HEMATOLOGY/ONCOLOGY: No history of anemia. ENDOCRINE: Diabetes. CONSTITUTIONAL: As mentioned earlier. DERMATOLOGY: Negative. RHEUMATOLOGY: Negative. PSYCHIATRY: As mentioned earlier. PHYSICAL EXAMINATION: Patient is alert, oriented x3. Pulse 63, blood pressure 133/78, respirations 16, temperature 97.9, pulse ox 98% on room air. HEENT: Conjunctivae normal. NECK: No jugular venous distention. CARDIOVASCULAR SYSTEM: S1, S2 muffled. RESPIRATORY SYSTEM: Breath sounds diminished at the bases. A few scattered rhonchi. No crackles. ABDOMEN: Soft, non-tender. No mass palpable. LEGS: No edema. No swelling. NERVOUS SYSTEM: Higher functions as mentioned earlier. Moves all 4 limbs. No focal motor or sensory deficit. LYMPHATICS: No lymph node palpable in neck, axillae or groin. SKIN: No ulcer, rash, bleeding. JOINTS: No active deforming arthropathy. LABS: CBC within normal limits. Creatinine is 1.75. The previous creatinine was noted. ASSESSMENT: 1. Slurring of speech and left-sided weakness; possible acute transient ischemic attack involving the right hemisphere. 2. Increased creatinine with chronic kidney disease. 3. Diabetes mellitus, type 2. 4. History of congestive heart failure; ejection fraction unknown. 5. Gastroesophageal reflux disease. 6. Hypertension. 7. History of pneumonia. 8. History of urinary tract infection. 9. History of glaucoma. 10.History of pacemaker. 11.History of cardiac catheterization. 12.Remote history of nicotine dependence. 13.FULL CODE. RECOMMENDATIONS AND DISCUSSION: In this 75-year-old gentleman who presented with multiple complex medical issues, we will monitor the patient closely, continue the current medications, continue with symptomatic treatment. I recommend full neurovascular workup, neurology consultation, antiplatelet agents. Resume the home medications. DVT prophylaxis. Prognosis guarded because of multiple complex medical issues. Further recommendations to follow. A copy of this dictation is being forwarded to Dr. Cano, who is the primary physician. MMTYL / ALEXANDRAN: [id number] / MTDD
[2020-05-30] MEDS: DORZOLAMIDE HCL 2% DROPS 10 ML BTL BOTH EYES SCH (22:51)
[2020-05-30] MEDS: CLOPIDOGREL 75 MG TAB PO SCH (22:51)
[2020-05-30] MEDS: TIMOLOL 0.5% OPHTH DROPS 5 ML BTL LEFT EYE SCH (22:52)
[2020-05-30] MEDS: FERROUS SULFATE 325 MG TAB PO SCH (22:52)
[2020-05-30 22:57] LABS: Glucose,Whole Blood 71 mg/dL (75-99)
--- NOTE | 2020-05-31 00:16 | US ---
EXAMINATION TYPE: US carotid duplex BILAT DATE OF EXAM: 05/30/2020 COMPARISON: CT CLINICAL HISTORY: stroke. Stroke per order. Slurred speech. Hx hypertension, hyperlipidemia. Previous smoker. EXAM MEASUREMENTS: RIGHT: Peak Systolic Velocity (PSV) cm/sec ----- Right CCA: 75.0 ----- Right ICA: 72.1 ----- Right ECA: 160.8 ICA/CCA ratio: 1.0 RIGHT: End Diastole cm/sec ----- Right CCA: 0.0 ----- Right ICA: 0.0 ----- Right ECA: 0.0 LEFT: Peak Systolic Velocity (PSV) cm/sec ----- Left CCA: 123.7 ----- Left ICA: 175.6 ----- Left ECA: 117.5 ICA/CCA ratio: 1.4 LEFT: End Diastole cm/sec ----- Left CCA: 25.2 ----- Left ICA: 40.9 ----- Left ECA: 0.0 VERTEBRALS (direction of flow): Right Vertebral: Antegrade Left Vertebral: Antegrade Rhythm: Normal Intimal thickening seen bilaterally. Plaque is visualized within bilateral carotid bifurcations. Incr eased amount of plaque seen within bilateral ICA. Limited color flow seen distally within right ICA. Elevated velocities within right ECA and left ICA. Hypoechoic area with hyperechoic center seen within the right neck measurin.7 x 1.0 x 0.6 cm. IMPRESSION: There is antegrade flow in the vertebral arteries. There is moderate bilateral plaque for mation. There is elevated velocity in the left internal carotid arteries suggestive of 50-70% stenosi s. There is elevated velocity right external carotid artery related to 50-70% stenosis. Images and me asurements suggest at least 50% stenosis of the right internal carotid artery. There is high resistan ce waveform in the right internal carotid artery on the Doppler waveforms. There is absent diastolic flow. There Is shadowing and incomplete evaluation of the lumen on the right side. I suspect signific ant stenosis of more than 70% on the right side at the distal common carotid artery that would explai n the absent diastolic flow pattern. Stenosis could be subtotal. Criteria for Assigning % of Stenosis / Diameter reduction (Estimation based on the indirect measurements of the internal carotid artery velocities (ICA PSV). 1. Normal (no stenosis)=ICA PSV < 125 cm/s: ratio < 2.0: ICA EDV<40 cm/s. 2. Less than 50% stenosis=ICA PSV < 125 cm/s: ratio < 2.0: ICA EDV<40 cm/s. 3. 50 to 69% stenosis=ICA PSV of 125 to 230 cm/s: ration 2.0 ? 4.0: ICA EDV 40-100 cm/s. 4. Greater than 70% stenosis to near occlusion= ICA PSV > 230 cm/s: ratio > 4.0: ICA EDV > 100 cm/s. 5. Near occlusion= ICA PSV velocities may be low or undetectable: variable ratio and ICA EDV. 6. Total occlusion=unable to detect flow.
[2020-05-31 02:18] LABS: Glucose,Whole Blood 96 mg/dL (75-99)
[2020-05-31 04:59] LABS: Glucose,Whole Blood 126 mg/dL (75-99)
[2020-05-31 06:54] LABS: Glucose,Whole Blood 98 mg/dL (75-99)
[2020-05-31] MEDS ORDERED: PANTOPRAZOLE 40 MG TABLET PO SCH ×2 (07:30→09:00)
[2020-05-31] MEDS ORDERED: glipiZIDE 10 MG TAB PO SCH (07:30)
[2020-05-31 07:53] LABS: Basophils # (A) 0.1 k/uL (0-0.2); Basophils % (A) 1 %; Eosinophils # (A) 0.4 k/uL (0-0.7); Eosinophils % (A) 5 %; HCT 44.6 % (39.0-53.0); HGB 13.6 gm/dL (13.0-17.5); Lymphocytes # (A) 1.3 k/uL (1.0-4.8); Lymphocytes % (A) 16 %; MCH 30.2 pg (25.0-35.0); MCHC 30.5 g/dL (31.0-37.0); MCV 99.2 fL (80.0-100.0); Macrocytosis Slight; Mean Platelet Volume 9.4; Monocytes # (A) 0.5 k/uL (0-1.0); Monocytes % (A) 6 %; Neutrophils # (A) 5.9 k/uL (1.3-7.7); Neutrophils % (A) 71 %; Platelet Count 180 k/uL (150-450); RDW 14.4 % (11.5-15.5); WBC 8.3 k/uL (3.8-10.6)
[2020-05-31 08:04] LABS: Calcium 8.7 mg/dL (8.4-10.2)
[2020-05-31] MEDS: FERROUS SULFATE 325 MG TAB PO SCH (08:45)
[2020-05-31] MEDS: CLOPIDOGREL 75 MG TAB PO SCH (08:45)
[2020-05-31] MEDS: TIMOLOL 0.5% OPHTH DROPS 5 ML BTL LEFT EYE SCH (08:46)
[2020-05-31] MEDS: DORZOLAMIDE HCL 2% DROPS 10 ML BTL BOTH EYES SCH (08:46)
[2020-05-31 09:00] LABS: Glucose,Whole Blood 116 mg/dL (75-99)
[2020-05-31] MEDS ORDERED: INSULIN DETEMIR (LEVEMIR) 100 UNIT/ML SYR SQ SCH (09:00)
[2020-05-31] MEDS ORDERED: MULTIVITAMINS, THERA 1 EACH TAB PO SCH (09:00)
[2020-05-31] MEDS ORDERED: atenoloL 50 MG TAB PO SCH (09:00)
[2020-05-31] MEDS ORDERED: allopurinoL 300 MG TAB PO SCH (09:00)
[2020-05-31] MEDS ORDERED: LOSARTAN 50 MG TAB PO SCH (09:00)
[2020-05-31] MEDS ORDERED: ISOSORBIDE MONONITRATE ER 30 MG TAB.ER.24H PO SCH (09:00)
[2020-05-31] MEDS ORDERED: NON FORMULARY DRUG (Omega-3 Fatty Acids/Fish Oil [Fish Oil 1,000 Mg Softgel] 1 EACH Capsul PO SCH (09:00)
[2020-05-31] MEDS ORDERED: FUROSEMIDE 40 MG TAB PO SCH (09:00)
[2020-05-31] MEDS ORDERED: HEPARIN SODIUM,PORCINE 5,000 UNIT/ML 1 ML VIAL SQ SCH (09:00)
[2020-05-31] MEDS ORDERED: ASPIRIN 325 MG TAB PO SCH (09:00)
[2020-05-31] MEDS ORDERED: POTASSIUM CHLORIDE ER 10 MEQ TAB.ER.PRT PO SCH (09:00)
[2020-05-31 10:11] VITALS: BP 145/82; PULSE 71; RESP 16; TEMP 97.9
--- NOTE | 2020-05-31 11:32 | P.CNNES ---
History of Present Illness Consult date: 05/31/20 Requesting physician: Nate Townsend Reason for Consult: TIA History of Present Illness: Patient is a 75-year-old male came to the hospital yesterday at 4 PM with acute onset of slurred speech and left arm weakness. I came to see patient today, his was not present. Apparently he seems to minimize everything. States he did not have any issue, only his states that he had slurred speech lasted for "couple minutes". He did not believe that he had any numbness, tingling or weakness of the extremity. Patient states that he did not argue with his . She tried to call ambulance, but he declined. However he did agree to come to the hospital. Patient at present feels fine. Vital signs on arrival blood pressure 157/68, pulse rate [address] head showed cerebral atrophy, but no acute process. Carotid Doppler revealed antegrade flow in the vertebral arteries. There is moderate bilateral plaque formation. There is elevated velocity in the left internal carotid artery suggestive of 50-70% stenosis. Images in measurement suggest at least 50% stenosis of the right ICA. There is high resistance waveform in the right internal carotid artery on the Doppler waveform. There is absent diastolic flow. There is shadowing an incomplete evaluation of the abdomen on the right side. I suspect significant stenosis of more than 70% on the right side at the distal common carotid artery that would explain absent diastolic flow pattern. Stenosis could be subtotal. Chest x-ray showed no acute cardiopulmonary disease. EKG shows atrial paced rhythm with prolonged AV conduction. Left axis deviation, left bundle branch block. Patient's blood test shows normal CBC, normal electrolytes, BUN is 41, creatinine 1.50. Patient does have mild chronic renal insufficiency. His last hemoglobin A1c 7.9 on 11/19/2017. B12 885. Patient had a 2-D echo performed 03/21/2020 as outpatient, which revealed normal left-ventricular size and function. Moderate concentric LVH. Mild dilated left atrium. There is mild aortic regurgitation and mild to moderate aortic stenosis. There is mild MR. The interatrial septum is normal. Hard copy available in the chart. Patient was diagnosed with TIA. Patient takes aspirin 325 mg daily, and simvastatin 80 mg. Patient has history of diabetes since 2001, hypertension. States lipids are well controlled although the good cholesterol is low. Nonsmoker. Smoked very lightly in his early 20s. Patient denies any history of strokes or TIA. States he had an [place] in 2004 but then minimizes, saying "I don't think I did". Patient does have a pacemaker. Review of Systems Denies any chest pain, shortness of breath wheezing or cough. Denies any double vision, loss of vision director veterinary or throat dysphagia. Denies any numbness tingling focal weakness. All other review of systems unremarkable. Past Medical History Past Medical History: Heart Failure, Diabetes Mellitus, GERD/Reflux, Hypertension, Myocardial Infarction ([place]), Pneumonia, Prostate Disorder, Renal Disease Additional Past Medical History / Comment(s): UTI's; glaucoma, [place] 2004. Last Myocardial Infarction Date:: 2004 History of Any Multi-Drug Resistant Organisms: None Reported Past Surgical History: Heart Catheterization, Pacemaker Additional Past Surgical History / Comment(s): shonna cataract surgery, Past Anesthesia/Blood Transfusion Reactions: No Reported Reaction Type of Cardiac Device: Permanent Pacemaker Device Placement Date:: 12/2013 Past Psychological History: No Psychological Hx Reported Smoking Status: Former smoker Past Alcohol Use History: None Reported Past Drug Use History: None Reported - Past Family History Father Family Medical History: Coronary Artery Disease (CAD), Myocardial Infarction ([place]) Mother Family Medical History: Diabetes Mellitus Medications and Allergies Home Medications Medication Instructions Recorded Confirmed Type Aspirin 325 mg PO DAILY 12/28/13 05/30/20 History Latanoprost Ophth [Xalatan 0.005%] 1 drop BOTH EYES HS 12/28/13 05/30/20 History Timolol [Betimol 0.5% Ophth Soln] 1 drop LEFT EYE BID 12/28/13 05/30/20 History Isosorbide Mononitrate [Isosorbide 30 mg PO DAILY 11/11/14 05/30/20 History Mononitrate ER] atenoloL [Tenormin] 50 mg PO DAILY 11/11/14 05/30/20 History Losartan [Cozaar] 50 mg PO DAILY tab 10/12/17 05/30/20 Rx Multivitamins, Thera [Multivitamin 1 tab PO DAILY 10/12/17 05/30/20 History (formulary)] Simvastatin [Zocor] 80 mg PO HS 10/12/17 05/30/20 History Omeprazole 20 mg PO DAILY 11/19/17 05/30/20 History Ferrous Sulfate [Iron (65 MG 325 mg PO TID 09/13/18 05/30/20 History Elemental)] allopurinoL [Zyloprim] 150 mg PO DAILY 09/13/18 05/30/20 History glipiZIDE [Glucotrol] 10 mg PO AC-BID 09/13/18 05/30/20 History Furosemide [Lasix] 40 mg PO BID #30 tablet 09/14/18 05/30/20 Rx Dextrose Chew [Glucose Chew Tab] 4 gm PO TID PRN 05/30/20 05/30/20 History Dorzolamide HCl/Pf [Dorzolamide 2% 1 drop BOTH EYES BID 05/30/20 05/30/20 History Eye Drop] Insulin Glargine [Lantus] 50 unit SQ DAILY 05/30/20 05/30/20 History [place]-3 Fatty Acids/Fish Oil [Fish 1 cap PO DAILY 05/30/20 05/30/20 History Oil 1,000 mg Softgel] Potassium Chloride [K-Tab ER] 10 meq PO DAILY 05/30/20 05/30/20 History Clopidogrel [Plavix] 75 mg PO DAILY #30 tab 05/31/20 Rx Allergies Allergy/AdvReac Type Severity Reaction Status Date / Time No Known Allergies Allergy Verified 05/30/20 20:41 Physical Examination - Vital Signs Vital Signs: Vital Signs Temp Pulse Pulse Resp BP BP Pulse Ox 05/31/20 08:42 97.9 F 71 16 145/82 96 05/31/20 02:15 98.7 F 75 18 157/66 96 05/30/20 21:40 98 F 68 18 129/70 98 05/30/20 18:09 63 16 133/78 98 05/30/20 15:50 97.9 F 77 18 157/68 98 Intake and Output 05/30/20 05/31/20 05/31/20 22:59 06:59 14:59 Intake Total 200 Output Total 140 Balance -140 200 Intake: Oral 200 Output: Urine 140 Other: Voiding Method Self-Catheterization Self-Catheterization # Voids 1 Weight 87.09 kg On examination patient is an elderly male, very pleasant in no acute distress. He is alert and awake fully oriented. Speech and language functions are normal. Attention and concentration fund of knowledge is adequate. On cranial nerve examination pupils are round and reacting to light, visual eddy are full on confrontation, extraocular muscles are intact with no nystagmus. Face is symmetric, tongue protrudes the midline. Palatal elevation and sensation normal hearing and shoulder shrug normal. Facial sensation normal. On muscle strength testing there is no pronator drift and the strength is normal in arms and legs distally and proximally reflexes are diminished and plantars are downgoing bilaterally. Sensory touch is equal. No ataxia for [id number] testing tone and bulk of muscles normal. Gait deferred. On general examination, patient has bilateral carotid bruit, patient also has murmur, S1 and S2 audible. No peripheral edema. Chest is clear, abdomen soft nontender. Results - Laboratory Findings CBC and BMP: 05/31/20 07:33 05/31/20 07:33 Abnormal Lab Findings: Abnormal Labs 05/30/20 05/30/20 05/31/20 16:27 22:56 04:58 MCHC Chloride BUN 51 H Creatinine 1.75 H Glucose 230 H POC Glucose (mg/dL) 71 L 126 H 05/31/20 05/31/20 05/31/20 07:33 07:33 08:58 MCHC 30.5 L Chloride 108 H BUN 41 H Creatinine 1.50 H Glucose POC Glucose (mg/dL) 116 H Assessment and Plan Assessment: * Probable TIA manifesting with transient slurred speech. As per ED report, patient had left arm weakness with slurring, but patient completely denies. Current examination is nonfocal. * Probable hemodynamically significant, symptomatic right ICA stenosis, per carotid ultrasound. * Diabetes * Hypertension * Pacemaker. Plan: * Agree with initiating Plavix 75 mg daily. Suggest continue dual antiplatelet medication for 3 weeks and then maintain on single agent, Plavix 75 mg daily. * Continue high-dose statins. * Fasting a.m. lipid panel and hemoglobin A1c. * Telemetry monitoring only showing sinus rhythm with first-degree AV block. No other arrhythmia. * Vascular surgical consultation for right ICA stenosis. Addendum: Hemoglobin A1c 7.7. Need to optimize control of diabetes to target hemoglobin A1c <7.0 Lipid panel with cholesterol 97, LDL 51, HDL 18 and triglycerides 138. Need to increase physical activity to increase HDL. Patient on Lipitor 40 mg. Vascular surgery saw the patient, recommending outpatient CTA. Patient being discharged.
[2020-05-31 13:41] LABS: Cholesterol 97 mg/dL (<200); HDL Cholesterol 18 mg/dL (40-60); LDL Cholesterol,Calculated 51 mg/dL (0-99); Triglycerides 138 mg/dL (<150)
--- NOTE | 2020-05-31 15:48 | P.GSCN ---
History of Present Illness Consult date: 05/31/20 Reason for Consult: carotid stenosis History of present illness: Patient is a 75-year-old male came to the hospital yesterday at 4 PM with acute onset of slurred speech and left arm weakness. I came to see patient today, his was not present. Apparently he seems to minimize everything. States he did not have any issue, only his states that he had slurred speech lasted for "couple minutes". He did not believe that he had any numbness, tingling or weakness of the extremity. Patient states that he did not argue with his . She tried to call ambulance, but he declined. However he did agree to come to the hospital. He currently denies any numbness tingling or weakness in bilateral upper or lower extremities. He denies any slurring of speech or difficulty swallowing. He denies any chest pain or shortness of breath. Vital signs on arrival blood pressure 157/68, pulse rate [address] head showed cerebral atrophy, but no acute process. Carotid Doppler revealed antegrade flow in the vertebral arteries. There is moderate bilateral plaque formation. There is elevated velocity in the left internal carotid artery suggestive of 50-70% stenosis. There is elevated velocity right external carotid artery related to 50-70% stenosis. Chest x-ray showed no acute cardiopulmonary disease. EKG shows atrial paced rhythm with prolonged AV conduction. Left axis deviation, left bundle branch block. Patient's blood test shows normal CBC, normal electrolytes, BUN is 41, creatinine 1.50. Patient does have mild chronic renal insufficiency. His last hemoglobin A1c 7.9 on 11/19/2017. B12 885. Patient had a 2-D echo performed 03/21/2020 as outpatient, which revealed normal left-ventricular size and function. Moderate concentric LVH. Mild dilated left atrium. There is mild aortic regurgitation and mild to moderate aortic stenosis. There is mild MR. The interatrial septum is normal. Hard copy available in the chart. Patient was diagnosed with TIA. Patient takes aspirin 325 mg daily, and s imvastatin 80 mg. Patient has history of diabetes since 2001, hypertension. Patient is a nonsmoker, denies any prior histories of CVA or TIA. Patient does have a pacemaker. Review of Systems A 14 point review of systems was completed all pertinent positives and negatives as stated in the HPI. Past Medical History Past Medical History: Heart Failure, Diabetes Mellitus, GERD/Reflux, Hypertension, Myocardial Infarction ([place]), Pneumonia, Prostate Disorder, Renal Disease Additional Past Medical History / Comment(s): UTI's; glaucoma, [place] 2004. Last Myocardial Infarction Date:: 2004 History of Any Multi-Drug Resistant Organisms: None Reported Past Surgical History: Heart Catheterization, Pacemaker Additional Past Surgical History / Comment(s): shonna cataract surgery, Past Anesthesia/Blood Transfusion Reactions: No Reported Reaction Type of Cardiac Device: Permanent Pacemaker Device Placement Date:: 12/2013 Past Psychological History: No Psychological Hx Reported Smoking Status: Former smoker Past Alcohol Use History: None Reported Past Drug Use History: None Reported - Past Family History Father Family Medical History: Coronary Artery Disease (CAD), Myocardial Infarction ([place]) Mother Family Medical History: Diabetes Mellitus Medications and Allergies Home Medications Medication Instructions Recorded Confirmed Type Aspirin 325 mg PO DAILY 12/28/13 05/30/20 History Latanoprost Ophth [Xalatan 0.005%] 1 drop BOTH EYES HS 12/28/13 05/30/20 History Timolol [Betimol 0.5% Ophth Soln] 1 drop LEFT EYE BID 12/28/13 05/30/20 History Isosorbide Mononitrate [Isosorbide 30 mg PO DAILY 11/11/14 05/30/20 History Mononitrate ER] atenoloL [Tenormin] 50 mg PO DAILY 11/11/14 05/30/20 History Losartan [Cozaar] 50 mg PO DAILY tab 10/12/17 05/30/20 Rx Multivitamins, Thera [Multivitamin 1 tab PO DAILY 10/12/17 05/30/20 History (formulary)] Simvastatin [Zocor] 80 mg PO HS 10/12/17 05/30/20 History Omeprazole 20 mg PO DAILY 11/19/17 05/30/20 History Ferrous Sulfate [Iron (65 MG 325 mg PO TID 09/13/18 05/30/20 History Elemental)] allopurinoL [Zyloprim] 150 mg PO DAILY 09/13/18 05/30/20 History glipiZIDE [Glucotrol] 10 mg PO AC-BID 09/13/18 05/30/20 History Furosemide [Lasix] 40 mg PO BID #30 tablet 09/14/18 05/30/20 Rx Dextrose Chew [Glucose Chew Tab] 4 gm PO TID PRN 05/30/20 05/30/20 History Dorzolamide HCl/Pf [Dorzolamide 2% 1 drop BOTH EYES BID 05/30/20 05/30/20 History Eye Drop] Insulin Glargine [Lantus] 50 unit SQ DAILY 05/30/20 05/30/20 History [place]-3 Fatty Acids/Fish Oil [Fish 1 cap PO DAILY 05/30/20 05/30/20 History Oil 1,000 mg Softgel] Potassium Chloride [K-Tab ER] 10 meq PO DAILY 05/30/20 05/30/20 History Clopidogrel [Plavix] 75 mg PO DAILY #30 tab 05/31/20 Rx Allergies Allergy/AdvReac Type Severity Reaction Status Date / Time No Known Allergies Allergy Verified 05/30/20 20:41 Surgical - Exam Vital Signs Temp Pulse Resp BP Pulse Ox 97.9 F 77 18 157/68 98 05/30/20 15:50 05/30/20 15:50 05/30/20 15:50 05/30/20 15:50 05/30/20 15:50 General appearance: The patient is alert, oriented, in no acute distress. HET: Head is normocephalic and atraumatic. Pupils are equal and reactive. Neck: Supple without lymphadenopathy. Trachea midline. No bruit bilateral. Heart: S1 S2. Regular rate and rhythm. Lungs: No crackles or wheezes are heard. Abdomen: Soft, nontender, nondistended with bowel sounds. Extremities: Normal skin color and turgor. No cyanosis, rash, ulceration, clubbing, or edema. Radial and pedal pulses are 2/4 bilaterally. Neurological: No focal deficits. Alert and oriented 3. Strength and sensation are grossly intact. Speech is fluent, facial symmetry, tongue protrudes midl ine, bilateral upper and lower extremity strength is equal. Results Carotid duplex states there is antegrade flow in the vertebral arteries. There is moderate bilateral plaque formation. There is elevated velocity in the left internal carotid arteries suggestive of 50-70% stenosis. There is elevated velocity right external carotid artery related to 50-70% stenosis. Images and measurement suggests at least 50% stenosis of the right internal carotid artery. There is high resistance waveform in the right internal carotid arteries and the Doppler waveforms. There is absent diastolic flow. There is shadowing and incomplete evaluation of the lumen on the right side. I suspect significant stenosis of more than 70% on the right side at the distal common carotid artery and would explain the absent diastolic flow pattern. Stenosis could be subtotal. Head CT without contrast shows cerebral atrophy. No acute intracranial abnormality. No change. - Labs 05/31/20 07:33 05/31/20 07:33 Abnormal Lab Results - Last 24 Hours (Table) 05/30/20 05/30/20 05/31/20 Range/Units 16:27 22:56 04:58 MCHC (31.0-37.0) g/dL Chloride (98-107) mmol/L BUN 51 H (9-20) mg/dL Creatinine 1.75 H (0.66-1.25) mg/dL Glucose 230 H (74-99) mg/dL POC Glucose (mg/dL) 71 L 126 H (75-99) mg/dL 05/31/20 05/31/20 05/31/20 Range/Units 07:33 07:33 08:58 MCHC 30.5 L (31.0-37.0) g/dL Chloride 108 H (98-107) mmol/L BUN 41 H (9-20) mg/dL Creatinine 1.50 H (0.66-1.25) mg/dL Glucose (74-99) mg/dL POC Glucose (mg/dL) 116 H (75-99) mg/dL Diabetes panel 05/30/20 05/31/20 Range/Units 16:27 07:33 Sodium 141 140 (137-145) mmol/L Potassium 4.6 4.0 (3.5-5.1) mmol/L Chloride 106 108 H (98-107) mmol/L Carbon Dioxide 24 24 (22-30) mmol/L BUN 51 H 41 H (9-20) mg/dL Creatinine 1.75 H 1.50 H (0.66-1.25) mg/dL Glucose 230 H 96 (74-99) mg/dL Calcium 9.0 8.7 (8.4-10.2) mg/dL AST 18 (17-59) U/L ALT 16 (4-49) U/L Alkaline Phosphatase 73 (38-126) U/L Total Protein 6.4 (6.3-8.2) g/dL Albumin 4.1 (3.5-5.0) g/dL Calcium panel 05/30/20 05/31/20 Range/Units 16:27 07:33 Calcium 9.0 8.7 (8.4-10.2) mg/dL Albumin 4.1 (3.5-5.0) g/dL Pituitary panel 05/30/20 05/31/20 Range/Units 16:27 07:33 Sodium 141 140 (137-145) mmol/L Potassium 4.6 4.0 (3.5-5.1) mmol/L Chloride 106 108 H (98-107) mmol/L Carbon Dioxide 24 24 (22-30) mmol/L BUN 51 H 41 H (9-20) mg/dL Creatinine 1.75 H 1.50 H (0.66-1.25) mg/dL Glucose 230 H 96 (74-99) mg/dL Calcium 9.0 8.7 (8.4-10.2) mg/dL Adrenal panel 05/30/20 05/31/20 Range/Units 16:27 07:33 Sodium 141 140 (137-145) mmol/L Potassium 4.6 4.0 (3.5-5.1) mmol/L Chloride 106 108 H (98-107) mmol/L Carbon Dioxide 24 24 (22-30) mmol/L BUN 51 H 41 H (9-20) mg/dL Creatinine 1.75 H 1.50 H (0.66-1.25) mg/dL Glucose 230 H 96 (74-99) mg/dL Calcium 9.0 8.7 (8.4-10.2) mg/dL Total Bilirubin 0.6 (0.2-1.3) mg/dL AST 18 (17-59) U/L ALT 16 (4-49) U/L Alkaline Phosphatase 73 (38-126) U/L Total Protein 6.4 (6.3-8.2) g/dL Albumin 4.1 (3.5-5.0) g/dL Assessment and Plan Assessment: 1. Bilateral carotid stenosis estimated 50-70% by carotid ultrasound 2. Probable TIA with manifestation of slurred speech and left upper extremity weakness. 3. Diabetes 4. Hypertension 5. Chronic kidney disease Plan: The patient was discussed with Dr. Jackson who reviewed imaging of carotid ultrasound. Agreeable with initiating Plavix 75 mg daily, low-dose aspirin, and statin. Would recommend CTA of head and neck for further evaluation, however the patient is adamant for discharge and refusing any further imaging due to his kidney disease. With [place] of symptoms and normal brain CT, it is reasonable for the patient to follow-up patient in the next 1-[address] Jackson for further workup including a CT angiogram of head and neck if kidney function improved. Thank you for this kind referral and the opportunity to participate in the care of your patient. This consultation was discussed with Dr. Jackson. The impression and plan of care have been directed as dictated.
[2020-05-31 20:53] LABS: Hemoglobin A1C 7.7 % (4.0-6.0)
[2020-05-31] MEDS ORDERED: ATORVASTATIN 40 MG TAB PO SCH (21:00)
--- NOTE | 2020-06-01 05:45 | DS ---
DISCHARGE SUMMARY DATE OF SERVICE: 05/31/2020 FINAL DIAGNOSES: 1. Acute slurring of speech and left-sided numbness, weakness possible acute transient ischemic attack involving the right hemisphere. 2. Increased creatinine with chronic kidney stage 3. 3. Bilateral carotid artery stenosis 50% to70% on the left and 50% on the right. 4. Diabetes mellitus type 2. 5. History of congestive heart failure, ejection fraction unknown. 6. Gastroesophageal reflux disease. 7. Hypertension. 8. History of pneumonia. 9. History of urinary tract infection. 10.History of glaucoma. 11.History of pacemaker. 12.History of cardiac catheterization. 13.History of remote history of nicotine dependence. 14.FULL CODE. DISCHARGE DISPOSITION: The patient will be discharged in stable condition with guarded prognosis. The patient is extremely keen on going home. HISTORY OF PRESENT ILLNESS: This 75-year-old gentleman with a past medical history of multiple medical problems being followed by Dr. Cano in the outpatient setting admitted with features of slurring of speech and TIA. Patient was treated symptomatically. Neurology saw the patient. Vascular Surgery also saw the patient. Dr. Jackson recommended outpatient followup and once the creatinine stabilized, a CT angio of the neck to evaluate the carotid stenosis otherwise. On exam, vitals are stable. CARDIOVASCULAR: S1, S2 normal. ABDOMEN: Soft. NERVOUS SYSTEM: No focal deficits. DISCHARGE ADVICE AND MEDICATIONS: 1. Diet is cardiac. 2. Activity limited until followup. 3. Follow up with Dr. Cano in 2 to 3 days. 4. Follow up with Dr. Recio in 1 week. 5. Follow up with Dr. Jackson as recommended. Medications will be as follows: 1. Aspirin 325 mg daily. 2. Timolol, as before. 3. Dorzolamide, as before. 4. [place]-3 fatty acids, as before. 5. Dextrose, as before. 6. Glucotrol 10 mg a.c. b.i.d. 7. Iron sulfate 325 mg t.i.d. 8. Imdur 30 mg p.o. daily. 9. KCl 10 mEq p.o. daily. 10.Lantus 50 units subcu daily. 11.Multivitamins one p.o. daily. 12.Omeprazole 20 mg daily. 13.Tenormin 50 mg daily. 14.Xalatan 0.005 one drop both eyes. 15.Zocor 80 mg at bedtime. 16.Zyloprim 150 mg daily. 17.Cozaar 50 mg daily. 18.Lasix 40 mg p.o. b.i.d. 19.Plavix 75 mg p.o. daily. Once again, the patient will be discharged in stable condition with guarded prognosis. MMTYL / ALEXANDRAN: [id number] /
== END 2020-05-31 13:02 ==
LOC: EC 15:48 → 3NCARDOBS 19:28
PROVIDERS: ADMIT Internal Medicine; ATTEND Internal Medicine
DX: R47.81 Slurred speech (principal); R53.1 Weakness; R27.0 Ataxia, unspecified; I65.23 Occlusion and stenosis of bilateral carotid arteries; Z86.73 Personal history of transient ischemic attack (TIA), and cerebral infarction without residual deficits; I13.0 Hypertensive heart and chronic kidney disease with heart failure and stage 1 through stage 4 chronic kidney disease, or unspecified chronic kidney disease; I50.9 Heart failure, unspecified; E11.22 Type 2 diabetes mellitus with diabetic chronic kidney disease; N18.30 Chronic kidney disease, stage 3 unspecified; R29.700 NIHSS score 0; K21.9 Gastro-esophageal reflux disease without esophagitis; I10 Essential (primary) hypertension; I25.2 Old myocardial infarction; H40.9 Unspecified glaucoma; E78.5 Hyperlipidemia, unspecified; I35.0 Nonrheumatic aortic (valve) stenosis; N42.9 Disorder of prostate, unspecified; Z87.891 Personal history of nicotine dependence; Z95.0 Presence of cardiac pacemaker; Z87.01 Personal history of pneumonia (recurrent); Z87.440 Personal history of urinary (tract) infections; Z79.82 Long term (current) use of aspirin; Z79.899 Other long term (current) drug therapy; Z79.4 Long term (current) use of insulin; Z79.02 Long term (current) use of antithrombotics/antiplatelets; Z82.49 Family history of ischemic heart disease and other diseases of the circulatory system; Z83.3 Family history of diabetes mellitus
CPT/HCPCS: 96372; 99285; 36415; 93005; 80061; 80053; 80048; 84484; 85025 ×2; 85610; 85730; 83036; 71046; 93880; 70450; G0378; J1644

== ENCOUNTER 2021-04-18 13:40 | Emergency (ER) | payer MEDICARE ==
[2021-04-18] MEDS ORDERED: dexAMETHasone 4 MG TAB PO STA (15:15)
[2021-04-18] MEDS ORDERED: IPRATROPIUM-ALBUTEROL 3 ML NEB INHALATION STA (15:15)
--- NOTE | 2021-04-18 15:17 | ED ---
General Adult HPI - General Chief complaint: Upper Respiratory Infection Stated complaint: cough Time Seen by Provider: 04/18/21 14:59 Source: patient Mode of arrival: ambulatory Limitations: no limitations - History of Present Illness Initial comments: Dictation was produced using [employer] dictation software. please excuse any grammatical, word or spelling errors. Chief Complaint: 75-year-old male presents with cough History of Present Illness: Is 75-year-old male who presents today with cough. Patient's been coughing for the last 2 weeks. He states that he is having production of clear sputum. Patient has been tested negative for cold it twice within the last 2 weeks. He tried course of antibiotics with no treatment. Pat katarzyna denies any constitutional symptoms. He states he does not feel sick. Denies any pain complaints. Denies any shortness of breath. The ROS documented in this emergency department record has been reviewed and confirmed by me. Those systems with pertinent positive or negative responses have been documented in the HPI. All other systems are other negative and/or noncontributory. PHYSICAL EXAM: General Impression: Alert and oriented x3, not in acute distress HEENT: Normocephalic atraumatic, extra-ocular movements intact, pupils equal and reactive to light bilaterally, mucous membranes moist. Cardiovascular: Heart regular rate and rhythm Chest: Able to complete full sentences, no retractions, no tachypnea, clear to auscultation bilaterally Abdomen: abdomen soft, non-tender, non-distended, no organomegaly Musculoskeletal: Pulses present and equal in all extremities, no peripheral edema Motor: no focal deficits noted Neurological: CN II-XII grossly intact, no focal motor or sensory deficits noted Skin: Intact with no visualized rashes Psych: Normal affect and mood ED course: 75-year-old well-appearing male presents emergency department for productive cough. Vital signs upon arrival are within acceptable limits. Patient not showing any signs of respiratory distress. He is coughing. 4 panel viral PCR was obtained showing negative result for covid, influenza and RSV. patietnt given duoneb. feels much better after breathing treatment. given prescription for proair inhaler for symptom control. advised follow up with PCP. - Related Data Home Medications Medication Instructions Recorded Confirmed Aspirin 325 mg PO DAILY 12/28/13 05/30/20 Latanoprost Ophth [Xalatan 0.005%] 1 drop BOTH EYES HS 05/13/14 10/13/20 Timolol [Betimol 0.5% Ophth Soln] 1 drop LEFT EYE BID 12/28/13 05/30/20 Isosorbide Mononitrate [Isosorbide 30 mg PO DAILY 11/11/14 05/30/20 Mononitrate ER] atenoloL [Tenormin] 50 mg PO DAILY 11/11/14 05/30/20 Multivitamins, Thera [Multivitamin 1 tab PO DAILY 10/12/17 05/30/20 (formulary)] Simvastatin [Zocor] 80 mg PO HS 10/12/17 05/30/20 Omeprazole 20 mg PO DAILY 11/19/17 05/30/20 Ferrous Sulfate [Iron (65 MG 325 mg PO TID 09/13/18 05/30/20 Elemental)] allopurinoL [Zyloprim] 150 mg PO DAILY 09/13/18 05/30/20 glipiZIDE [Glucotrol] 10 mg PO AC-BID 09/13/18 05/30/20 Dextrose Chew [Glucose Chew Tab] 4 gm PO TID PRN 05/30/20 05/30/20 Dorzolamide HCl/Pf [Dorzolamide 2% 1 drop BOTH EYES BID 05/30/20 05/30/20 Eye Drop] Insulin Glargine [Lantus Vial] 50 unit SQ DAILY 05/30/20 05/30/20 [place]-3 Fatty Acids/Fish Oil [Fish 1 cap PO DAILY 05/30/20 05/30/20 Oil 1,000 mg Softgel] Potassium Chloride [K-Tab ER] 10 meq PO DAILY 05/30/20 05/30/20 Previous Rx's Medication Instructions Recorded Losartan [Cozaar] 50 mg PO DAILY tab 10/12/17 Furosemide [Lasix] 40 mg PO BID #30 tablet 09/14/18 Clopidogrel [Plavix] 75 mg PO DAILY #30 tab 05/31/20 Albuterol Sulfate [Proair Hfa] 1 - 2 puff INHALATION Q6HR PRN 04/18/21 #8.5 gm Allergies Allergy/AdvReac Type Severity Reaction Status Date / Time No Known Allergies Allergy Verified 04/18/21 13:54 Review of Systems ROS Statement: Those systems with pertinent positive or pertinent negative responses have been documented in the HPI. ROS Other: All systems not noted in ROS Statement are negative. Past Medical History Past Medical History: Heart Failure, CVA/TIA, Diabetes Mellitus, GERD/Reflux, Hypertension, Myocardial Infarction (SD), Pneumonia, Prostate Disorder, Renal Disease Additional Past Medical History / Comment(s): UTI's; glaucoma, [place] 2004. Last Myocardial Infarction Date:: 2004 History of Any Multi-Drug Resistant Organisms: None Reported Past Surgical History: Heart Catheterization, Pacemaker Additional Past Surgical History / Comment(s): shonna cataract surgery, Past Anesthesia/Blood Transfusion Reactions: No Reported Reaction Type of Cardiac Device: Permanent Pacemaker Device Placement Date:: 12/2013 Past Psychological History: No Psychological Hx Reported Smoking Status: Former smoker Past Alcohol Use History: None Reported Past Drug Use History: None Reported - Past Family History Father Family Medical History: Coronary Artery Disease (CAD), Myocardial Infarction (SD) Mother Family Medical History: Diabetes Mellitus General Exam Limitations: no limitations Course Vital Signs 04/18/21 04/18/21 04/18/21 13:54 15:24 15:40 Temperature 98.3 F Pulse Rate 80 80 78 Respiratory 20 Rate Blood Pressure 135/70 O2 Sat by Pulse 97 Oximetry 04/18/21 15:55 Temperature Pulse Rate 62 Respiratory 18 Rate Blood Pressure 162/72 O2 Sat by Pulse 98 Oximetry Medical Decision Making - Lab Data Lab Results 04/18/21 Range/Units 15:10 Influenza Type A (PCR) Not Detected (Not Detectd) Influenza Type B (PCR) Not Detected (Not Detectd) RSV (PCR) Not Detected (Not Detectd) SARS-CoV-2 (PCR) Not Detected (Not Detectd) Disposition Clinical Impression: Cough Disposition: HOME SELF-CARE Condition: Good Instructions (If sedation given, give patient instructions): Upper Respiratory Infection (ED) Prescriptions: Albuterol Sulfate [Proair Hfa] 1 - 2 puff INHALATION Q6HR PRN #8.5 gm PRN Reason: Dyspnea Is patient prescribed a controlled substance at d/c from ED?: No Referrals: [facility],Clinic [Primary Care Provider] - 1-2 days
--- NOTE | 2021-04-18 15:30 | XR ---
EXAMINATION TYPE: XR chest 2V DATE OF EXAM: 04/18/2021 COMPARISON: 05/30/2020 HISTORY: Shortness of breath TECHNIQUE: Frontal and lateral views of the chest are obtained. FINDINGS: Scattered senescent parenchymal changes noted. Hyperinflation compatible with COPD. No evidence for infiltrate. No evidence for atelectasis. Heart size is stable. Mediastinal structures are stable and grossly unremarkable. No evidence for hilar prominence. Degenerative changes dorsal spine. IMPRESSION: 1. No evidence for acute pulmonary disease.
[2021-04-18 15:58] VITALS: BP 162/72; PULSE 62; RESP 18
[2021-04-18 16:31] VITALS: TEMP 97.7
== END 2021-04-18 16:29 | disposition home or self-care (01) ==
LOC: EC 13:40
DX: R05 Cough (principal); E11.9 Type 2 diabetes mellitus without complications; I11.0 Hypertensive heart disease with heart failure; I50.9 Heart failure, unspecified; I25.2 Old myocardial infarction; Z86.73 Personal history of transient ischemic attack (TIA), and cerebral infarction without residual deficits; Z95.0 Presence of cardiac pacemaker; Z79.82 Long term (current) use of aspirin; Z20.822 Contact with and (suspected) exposure to COVID-19; Z87.891 Personal history of nicotine dependence
CPT/HCPCS: 94640; 87636; 71046; 99283; J8540

== ENCOUNTER 2022-09-24 19:29 | Emergency (ER) | payer MEDICARE ==
[2022-09-24 19:40] VITALS: BP 192/72; PULSE 93; RESP 16; TEMP 98.6
[2022-09-24 20:03] LABS: Basophils % (A) 0 %; Eosinophils # (A) 0.1 k/uL (0-0.7); Eosinophils % (A) 1 %; HCT 50.2 % (39.0-53.0); HGB 16.3 gm/dL (13.0-17.5); Lymphocytes # (A) 0.7 k/uL (1.0-4.8); Lymphocytes % (A) 6 %; MCH 30.6 pg (25.0-35.0); MCHC 32.4 g/dL (31.0-37.0); MCV 94.4 fL (80.0-100.0); Mean Platelet Volume 9.1; Monocytes # (A) 0.3 k/uL (0-1.0); Monocytes % (A) 2 %; Neutrophils # (A) 11.2 k/uL (1.3-7.7); Neutrophils % (A) 90 %; Platelet Count 204 k/uL (150-450); RBC 5.32 m/uL (4.30-5.90); RDW 13.3 % (11.5-15.5); WBC 12.3 k/uL (3.8-10.6)
[2022-09-24 20:17] LABS: Albumin 4.5 g/dL (3.5-5.0); Calcium 8.9 mg/dL (8.4-10.2); Potassium 4.8 mmol/L (3.5-5.1); Total Protein 7.3 g/dL (6.3-8.2)
[2022-09-24] MEDS ORDERED: SODIUM CHLORIDE 0.9% 1,000 ML IV STA ×2 (21:56)
[2022-09-24] MEDS ORDERED: ONDANSETRON 4 MG/2 ML VIAL IVP STA (21:56)
--- NOTE | 2022-09-24 22:13 | ED ---
Weakness HPI - General Chief complaint: Nausea/Vomiting/Diarrhea Stated complaint: Dehydration; vomiting Time Seen by Provider: 09/24/22 21:55 Source: patient, family, RN notes reviewed, old records reviewed Mode of arrival: ambulatory - History of Present Illness Initial comments: This is a 77-year-old male to the emergency department for evaluation of weakness weakness nausea no vomiting. Diarrhea no travel history sick contacts no fevers no significant medical history. Patient is multiple hours of nausea vomiting diarrhea worsening tonight and patient became concerned for his ability eat or drink. Patient has history of diabetes no other significant findings here in the ER MD Complaint: generalized weakness -: hour(s) Location: generalized Severity: moderate Severity scale (1-10): 4 Consistency: constant Improves with: none Worsens with: none Context: recent illness, history of similar Associated Symptoms: loss of appetite, nausea/vomiting - Related Data Home Medications Medication Instructions Recorded Confirmed Aspirin 325 mg PO DAILY 12/28/13 05/30/20 Latanoprost Ophth [Xalatan 0.005%] 1 drop BOTH EYES HS 12/28/13 05/30/20 Timolol [Betimol 0.5% Ophth Soln] 1 drop LEFT EYE BID 12/28/13 05/30/20 Isosorbide Mononitrate [Isosorbide 30 mg PO DAILY 11/11/14 05/30/20 Mononitrate ER] atenoloL [Tenormin] 50 mg PO DAILY 11/11/14 05/30/20 Multivitamins, Thera [Multivitamin 1 tab PO DAILY 10/12/17 05/30/20 (formulary)] Simvastatin [Zocor] 80 mg PO HS 10/12/17 05/30/20 Omeprazole 20 mg PO DAILY 11/19/17 05/30/20 Ferrous Sulfate [Iron (65 MG 325 mg PO TID 09/13/18 05/30/20 Elemental)] allopurinoL [Zyloprim] 150 mg PO DAILY 09/13/18 05/30/20 glipiZIDE [Glucotrol] 10 mg PO AC-BID 09/13/18 05/30/20 Dextrose Chew [Glucose Chew Tab] 4 gm PO TID PRN 05/30/20 05/30/20 Dorzolamide HCl/Pf [Dorzolamide 2% 1 drop BOTH EYES BID 05/30/20 05/30/20 Eye Drop] Insulin Glargine [Lantus Vial] 50 unit SQ DAILY 05/30/20 05/30/20 [place]-3 Fatty Acids/Fish Oil [Fish 1 cap PO DAILY 05/30/20 05/30/20 Oil 1,000 mg Softgel] Potassium Chloride [K-Tab ER] 10 meq PO DAILY 05/30/20 05/30/20 Previous Rx's Medication Instructions Recorded Losartan [Cozaar] 50 mg PO DAILY tab 10/12/17 Furosemide [Lasix] 40 mg PO BID #30 tablet 09/14/18 Clopidogrel [Plavix] 75 mg PO DAILY #30 tab 05/31/20 Albuterol Sulfate [Proair Hfa] 1 - 2 puff INHALATION Q6HR PRN 04/18/21 #8.5 gm Allergies Allergy/AdvReac Type Severity Reaction Status Date / Time No Known Allergies Allergy Verified 04/18/21 13:54 Review of Systems ROS Statement: Those systems with pertinent positive or pertinent negative responses have been documented in the HPI. ROS Other: All systems not noted in ROS Statement are negative. Past Medical History Past Medical History: Heart Failure, CVA/TIA, Diabetes Mellitus, GERD/Reflux, Hypertension, Myocardial Infarction (OR), Pneumonia, Prostate Disorder, Renal Disease Additional Past Medical History / Comment(s): UTI's; glaucoma, [place] 2004. Last Myocardial Infarction Date:: 2004 History of Any Multi-Drug Resistant Organisms: None Reported Past Surgical History: Heart Catheterization, Pacemaker Additional Past Surgical History / Comment(s): shonna cataract surgery, Past Anesthesia/Blood Transfusion Reactions: No Reported Reaction Type of Cardiac Device: Permanent Pacemaker Device Placement Date:: 12/2013 Past Psychological History: No Psychological Hx Reported Smoking Status: Former smoker Past Alcohol Use History: None Reported Past Drug Use History: None Reported - Past Family History Father Family Medical History: Coronary Artery Disease (CAD), Myocardial Infarction (OR) Mother Family Medical History: Diabetes Mellitus General Exam General appearance: alert, in no apparent distress Head exam: Present: atraumatic, normocephalic, normal inspection Eye exam: Present: normal appearance, PERRL, EOMI. Absent: scleral icterus, conjunctival injection, periorbital swelling ENT exam: Present: normal exam, mucous membranes moist Neck exam: Present: normal inspection. Absent: tenderness, meningismus, lymphadenopathy Respiratory exam: Present: normal lung sounds bilaterally. Absent: respiratory distress, wheezes, rales, rhonchi, stridor Cardiovascular Exam: Present: regular rate, normal rhythm, normal heart sounds. Absent: systolic murmur, diastolic murmur, rubs, gallop, clicks GI/Abdominal exam: Present: soft, normal bowel sounds. Absent: distended, tenderness, guarding, rebound, rigid Extremities exam: Present: normal inspection, full ROM, normal capillary refill. Absent: tenderness, pedal edema, joint swelling, calf tenderness Back exam: Present: normal inspection Neurological exam: Present: alert, oriented X3, CN II-XII intact Psychiatric exam: Present: normal affect, normal mood Skin exam: Present: warm, dry, intact, normal color. Absent: rash Course Vital Signs 09/24/22 19:35 Temperature 98.6 F Pulse Rate 93 Respiratory 16 Rate Blood Pressure 192/72 O2 Sat by Pulse 96 Oximetry - Reevaluation(s) Reevaluation #1: 09/24/2022 Medical record is reviewed Reevaluation #2: 09/24/2022 Patient has significant improvement in symptoms here in the ER Reevaluation #3: 09/24/2022 Patient informed results and questions answered Reevaluation #4: Was pt. sent in by a medical professional or institution? @ -no Did you speak to anyone other than the patient for history? @ -no Did you review nursing and triage notes? @ -agree Were old charts reviewed? @ -yes Differential Diagnosis? @ -no EKG interpreted by me (3pts min.)? @ -no X-rays interpreted by me (1pt min.)? @ -no CT interpreted by me (1pt min.)? @ -no U/S interpreted by me (1pt. min.)? @ -no What testing was considered but not performed? (CT, X-rays, U/S, labs)? Why? @ -no What meds were considered but not given? Why? @ -no Did you discuss the management of the patient with other professionals? @ -no Did you reconcile home meds? @ -no Was smoking cessation discussed for >3mins.? @ -no Was critical care preformed (if so, how long)? @ -no Were there social determinants of health that impacted care today? How? (Homelessness, low income, unemployed, alcoholism, drug addiction, transportation, low edu. Level, literacy, decrease access to med. care, residential, rehab)? @ -no Was there de-escalation of care discussed even if they declined? (Discuss DNR or withdrawal of care, Hospice)? @ -no What co-morbidities impacted this encounter? (DM, HTN, Smoking, COPD, CAD, Cancer, CVA, Hep., AIDS, mental health diagnosis, sleep apnea, morbid obesity)? @ -no Was patient admitted / discharged? @ -dc Undiagnosed new problem with uncertain prognosis? @ -no Drug Therapy requiring intensive monitoring for toxicity (Heparin, Nitro, Insulin, Cardizem)? @ -no Were any procedures done? @ -no Diagnosis/symptom? @ -gastroenteritis Acute, or Chronic, or Acute on Chronic? @ -no Uncomplicated (without systemic symptoms) or Complicated (systemic symptoms)? @ -no Side effects of treatment? @ -no Exacerbation, Progression, or Severe Exacerbation] @ -no Poses a threat to life or bodily function? @ -no Reevaluation #5: Differential Weakness: Hypoglycemia, shock, sepsis, hyponatremia, anemia, infection, OR, ETOH, adverse medicine reaction, overdose, stroke, this is not meant to be an all-inclusive list. Medical Decision Making - Medical Decision Making 77 male to the emergency department for evaluation of nausea vomiting and diarrhea that started in the afternoon today. Persistent although mildly improving here in the emergency department. At this point patient has no fevers lab values are normal symptoms are improving she can be discharged home - Lab Data Result diagrams: 09/24/22 19:44 09/24/22 19:44 Lab Results 09/24/22 09/24/22 09/24/22 Range/Units 19:44 19:44 19:44 WBC 12.3 H (3.8-10.6) k/uL RBC 5.32 (4.30-5.90) m/uL Hgb 16.3 (13.0-17.5) gm/dL Hct 50.2 (39.0-53.0) % MCV 94.4 (80.0-100.0) fL MCH 30.6 (25.0-35.0) pg MCHC 32.4 (31.0-37.0) g/dL RDW 13.3 (11.5-15.5) % Plt Count 204 (150-450) k/uL MPV 9.1 Neutrophils % 90 % Lymphocytes % 6 % Monocytes % 2 % Eosinophils % 1 % Basophils % 0 % Neutrophils # 11.2 H (1.3-7.7) k/uL Lymphocytes # 0.7 L (1.0-4.8) k/uL Monocytes # 0.3 (0-1.0) k/uL Eosinophils # 0.1 (0-0.7) k/uL Basophils # 0.0 (0-0.2) k/uL Sodium 140 (137-145) mmol/L Potassium 4.8 (3.5-5.1) mmol/L Chloride 107 (98-107) mmol/L Carbon Dioxide 24 (22-30) mmol/L Anion Gap 9 mmol/L BUN 28 H (9-20) mg/dL Creatinine 1.09 (0.66-1.25) mg/dL Est GFR (CKD-EPI)AfAm 74 (>60 ml/min/1.73 sqM) Est GFR (CKD-EPI)NonAf 64 (>60 ml/min/1.73 sqM) Glucose 196 H (74-99) mg/dL Plasma Lactic Acid David (0.7-2.0) mmol/L Calcium 8.9 (8.4-10.2) mg/dL Phosphorus (2.5-4.5) mg/dL Total Bilirubin 1.0 (0.2-1.3) mg/dL AST 30 (17-59) U/L ALT 25 (4-49) U/L Alkaline Phosphatase 75 (38-126) U/L Troponin I (0.000-0.034) ng/mL Total Protein 7.3 (6.3-8.2) g/dL Albumin 4.5 (3.5-5.0) g/dL Influenza Type A (PCR) Not Detected (Not Detectd) Influenza Type B (PCR) Not Detected (Not Detectd) RSV (PCR) Not Detected (Not Detectd) SARS-CoV-2 (PCR) Not Detected (Not Detectd) 09/24/22 09/24/22 09/24/22 Range/Units 22:45 22:45 22:45 WBC (3.8-10.6) k/uL RBC (4.30-5.90) m/uL Hgb (13.0-17.5) gm/dL Hct (39.0-53.0) % MCV (80.0-100.0) fL MCH (25.0-35.0) pg MCHC (31.0-37.0) g/dL RDW (11.5-15.5) % Plt Count (150-450) k/uL MPV Neutrophils % % Lymphocytes % % Monocytes % % Eosinophils % % Basophils % % Neutrophils # (1.3-7.7) k/uL Lymphocytes # (1.0-4.8) k/uL Monocytes # (0-1.0) k/uL Eosinophils # (0-0.7) k/uL Basophils # (0-0.2) k/uL Sodium (137-145) mmol/L Potassium (3.5-5.1) mmol/L Chloride (98-107) mmol/L Carbon Dioxide (22-30) mmol/L Anion Gap mmol/L BUN (9-20) mg/dL Creatinine (0.66-1.25) mg/dL Est GFR (CKD-EPI)AfAm (>60 ml/min/1.73 sqM) Est GFR (CKD-EPI)NonAf (>60 ml/min/1.73 sqM) Glucose (74-99) mg/dL Plasma Lactic Acid David 1.4 (0.7-2.0) mmol/L Calcium (8.4-10.2) mg/dL Phosphorus 4.5 (2.5-4.5) mg/dL Total Bilirubin (0.2-1.3) mg/dL AST (17-59) U/L ALT (4-49) U/L Alkaline Phosphatase (38-126) U/L Troponin I 0.013 (0.000-0.034) ng/mL Total Protein (6.3-8.2) g/dL Albumin (3.5-5.0) g/dL Influenza Type A (PCR) (Not Detectd) Influenza Type B (PCR) (Not Detectd) RSV (PCR) (Not Detectd) SARS-CoV-2 (PCR) (Not Detectd) Disposition Clinical Impression: Dehydration, Gastroenteritis Disposition: HOME SELF-CARE Condition: Fair Instructions (If sedation given, give patient instructions): Acute Nausea and Vomiting (ED) Is patient prescribed a controlled substance at d/c from ED?: No Referrals: [facility],Clinic [Primary Care Provider] - 1-2 days Time of Disposition: 23:55
== END 2022-09-25 00:25 | disposition home or self-care (01) ==
LOC: EC 19:29
DX: E86.0 Dehydration (principal); K52.9 Noninfective gastroenteritis and colitis, unspecified; I11.0 Hypertensive heart disease with heart failure; I50.9 Heart failure, unspecified; K21.9 Gastro-esophageal reflux disease without esophagitis; E11.9 Type 2 diabetes mellitus without complications; I25.2 Old myocardial infarction; Z87.891 Personal history of nicotine dependence; Z79.82 Long term (current) use of aspirin; Z79.899 Other long term (current) drug therapy; Z79.84 Long term (current) use of oral hypoglycemic drugs; Z79.4 Long term (current) use of insulin; Z20.822 Contact with and (suspected) exposure to COVID-19
CPT/HCPCS: 36415; 93005; 80053; 83605; 84100; 84484; 85025; 87636; 99284; 96374; 96361 ×2; J2405

== ENCOUNTER 2023-06-17 11:10 | Emergency (ER) | payer MEDICARE ==
--- NOTE | 2023-06-17 11:49 | XR ---
EXAMINATION TYPE: XR shoulder complete 3 views LT DATE OF EXAM: 06/17/2023 Comparison: None Clinical History: 78-year-old male pain after fall Findings: Pacemaker generator overlies the left anterior chest wall. There is a greater tuberosity fracture. Th e fracture fragment is mildly displaced by 6 mm and the fracture fragment measures 4.5 cm. Subtle scl erotic band at the level of the surgical neck quadrant reflect a nondisplaced surgical neck component of fracture. Impression: 1. Mildly displaced greater tuberosity fracture. 6 mm of lateral displacement. Note that this is a fu nctional rotator cuff tear and should be followed up closely to ensure appropriate healing. 2. Band of sclerosis in the region of the surgical neck of the humerus could represent a subtle nondi splaced surgical neck fracture.
--- NOTE | 2023-06-17 11:53 | ED ---
Upper Extremity HPI - General Chief Complaint: Extremity Injury, Upper Stated Complaint: Fall, left shoulder injury Time Seen by Provider: 06/17/23 11:19 Source: patient, RN notes reviewed Mode of arrival: EMS Limitations: no limitations - History of Present Illness Initial Comments: 78-year-old male presents emergency Department with chief complaint of left shoulder pain. Patient states he was walking his dog when he was performed falling onto his left shoulder. Patient states his pain is left shoulder no other injuries denies head injury no loss conscious. He states he is unable to move his left arm he is left-hand dominant. - Related Data Home Medications Medication Instructions Recorded Confirmed Aspirin 325 mg PO DAILY 12/28/13 05/30/20 Latanoprost Ophth [Xalatan 0.005%] 1 drop BOTH EYES HS 12/28/13 05/30/20 Timolol [Betimol 0.5% Ophth Soln] 1 drop LEFT EYE BID 12/28/13 05/30/20 Isosorbide Mononitrate [Isosorbide 30 mg PO DAILY 11/11/14 05/30/20 Mononitrate ER] atenoloL [Tenormin] 50 mg PO DAILY 11/11/14 05/30/20 Multivitamins, Thera [Multivitamin 1 tab PO DAILY 10/12/17 05/30/20 (formulary)] Simvastatin [Zocor] 80 mg PO HS 10/12/17 05/30/20 Omeprazole 20 mg PO DAILY 11/19/17 05/30/20 Ferrous Sulfate [Iron (65 MG 325 mg PO TID 09/13/18 05/30/20 Elemental)] allopurinoL [Zyloprim] 150 mg PO DAILY 09/13/18 05/30/20 glipiZIDE [Glucotrol] 10 mg PO AC-BID 09/13/18 05/30/20 Dextrose Chew [Glucose Chew Tab] 4 gm PO TID PRN 05/30/20 05/30/20 Dorzolamide HCl/Pf [Dorzolamide 2% 1 drop BOTH EYES BID 05/30/20 05/30/20 Eye Drop] Insulin Glargine [Lantus Vial] 50 unit SQ DAILY 05/30/20 05/30/20 [place]-3 Fatty Acids/Fish Oil [Fish 1 cap PO DAILY 05/30/20 05/30/20 Oil 1,000 mg Softgel] Potassium Chloride [K-Tab ER] 10 meq PO DAILY 05/30/20 05/30/20 Previous Rx's Medication Instructions Recorded Losartan [Cozaar] 50 mg PO DAILY tab 10/12/17 Furosemide [Lasix] 40 mg PO BID #30 tablet 09/14/18 Clopidogrel [Plavix] 75 mg PO DAILY #30 tab 05/31/20 Albuterol Sulfate [Proair Hfa] 1 - 2 puff INHALATION Q6HR PRN 04/18/21 #8.5 gm Allergies Allergy/AdvReac Type Severity Reaction Status Date / Time No Known Allergies Allergy Verified 06/17/23 11:19 Review of Systems ROS Statement: Those systems with pertinent positive or pertinent negative responses have been documented in the HPI. ROS Other: All systems not noted in ROS Statement are negative. Past Medical History Past Medical History: Heart Failure, CVA/TIA, Diabetes Mellitus, GERD/Reflux, Hypertension, Myocardial Infarction ([place]), Pneumonia, Prostate Disorder, Renal Disease Additional Past Medical History / Comment(s): UTI's; glaucoma, [place] 2004. Last Myocardial Infarction Date:: 2004 History of Any Multi-Drug Resistant Organisms: None Reported Past Surgical History: Heart Catheterization, Pacemaker Additional Past Surgical History / Comment(s): shonna cataract surgery, Past Anesthesia/Blood Transfusion Reactions: No Reported Reaction Type of Cardiac Device: Permanent Pacemaker Device Placement Date:: 12/2013 Past Psychological History: No Psychological Hx Reported Smoking Status: Former smoker Past Alcohol Use History: None Reported Past Drug Use History: None Reported - Past Family History Father Family Medical History: Coronary Artery Disease (CAD), Myocardial Infarction ([place]) Mother Family Medical History: Diabetes Mellitus General Exam Limitations: no limitations General appearance: alert, in no apparent distress Head exam: Present: atraumatic, normocephalic, normal inspection Respiratory exam: Present: normal lung sounds bilaterally. Absent: respiratory distress, wheezes, rales, rhonchi, stridor Cardiovascular Exam: Present: regular rate, normal rhythm, normal heart sounds. Absent: systolic murmur, diastolic murmur, rubs, gallop, clicks Extremities exam: Present: other (Left shoulder there is diffuse tenderness, swelling no clavicular tenderness, very limited range of motion neurovascular intact) Course Vital Signs 06/17/23 06/17/23 11:14 11:16 Temperature 98.2 F 97.0 F L Pulse Rate 72 76 Respiratory 18 16 Rate Blood Pressure 158/80 172/76 O2 Sat by Pulse 99 97 Oximetry Medical Decision Making - Medical Decision Making Was pt. sent in by a medical professional or institution (OBDULIA Chahal, POWERHOUSE MECHANIC APPRENTICE, urgent care, hospital, or half-way...) When possible be specific @ -No Did you speak to anyone other than the patient for history (EMS, parent, family, police, friend...)? What history was obtained from this source @ -No Did you review nursing and triage notes (agree or disagree)? Why? @ -I reviewed and agree with nursing and triage notes Were old charts reviewed (outside hosp., previous admission, EMS record, old EKG, old radiological studies, urgent care reports/EKG's, half-way records)? Report findings @ -No old charts were reviewed Differential Diagnosis (chest pain, altered mental status, abdominal pain women, abdominal pain men, vaginal bleeding, weakness, fever, dyspnea, syncope, headache, dizziness, GI bleed, back pain, seizure, CVA, palpatations, mental health, musculoskeletal)? @ Left shoulder dislocation, shoulder sprain, rotator cuff injury, left proximal humerus fracture ] EKG interpreted by me (3pts min.). @ -None X-rays interpreted by me (1pt min.). @ -X-ray left shoulder shows acute fracture proximal humerus CT interpreted by me (1pt min.). @ -None done U/S interpreted by me (1pt. min.). @ -None done What testing was considered but not performed or refused? (CT, X-rays, U/S, labs)? Why? @ -None What meds were considered but not given or refused? Why? @ -None Did you discuss the management of the patient with other professionals (professionals i.e. OBDULIA Chahal, POWERHOUSE MECHANIC APPRENTICE, lab, RT, psych nurse, 7th grade social studies teacher, rougher helper, teacher, quarantine officer, case management director)? Give summary @ -No Was smoking cessation discussed for >3mins.? @ -No Was critical care preformed (if so, how long)? @ -No Were there social determinants of health that impacted care today? How? (Homelessness, low income, unemployed, alcoholism, drug addiction, transportation, low edu. Level, literacy, decrease access to med. care, snf, rehab)? @ -No Was there de-escalation of care discussed even if they declined (Discuss DNR or withdrawal of care, Hospice)? DNR status @ -No What co-morbidities impacted this encounter? (DM, HTN, Smoking, COPD, CAD, Cancer, CVA, ARF, Chemo, Hep., AIDS, mental health diagnosis, sleep apnea, morbid obesity)? @ -None Was patient admitted / discharged? Hospital course, mention meds given and route, prescriptions, significant lab abnormalities, going to OR and other pertinent info. @ -[Discharge patient to left proximal humerus fracture patient was placed in a sling follow-up with orthopedics patient offered analgesics patient declines stating that Tylenol will be sufficient Undiagnosed new problem with uncertain prognosis? @ -No Drug Therapy requiring intensive monitoring for toxicity (Heparin, Nitro, Insulin, Cardizem)? @ -No Were any procedures done? @ -No Diagnosis/symptom? @ -Left proximal humerus fracture Acute, or Chronic, or Acute on Chronic? @ -Acute Uncomplicated (without systemic symptoms) or Complicated (systemic symptoms)? @ -Uncomplicated Side effects of treatment? @ -No Exacerbation, Progression, or Severe Exacerbation? @ -No Poses a threat to life or bodily function? How? (Chest pain, [place], [place], pneumonia, PE, COPD, DKA, ARF, appy, cholecystitis, CVA, Diverticulitis, Homicidal, Suicidal, threat to staff... and all critical care pts) @ -No Disposition Clinical Impression: Closed fracture of left proximal humerus Disposition: HOME SELF-CARE Condition: Stable Instructions (If sedation given, give patient instructions): Proximal Humerus Fracture (ED) Additional Instructions: Please return to the Emergency Department if symptoms worsen or any other concerns. Is patient prescribed a controlled substance at d/c from ED?: No Referrals: [facility],Clinic [Primary Care Provider] - 1-2 days Aysha Reyna DO [Doctor of Osteopathic Medicine] - 1-2 days Time of Disposition: 11:53
[2023-06-17] MEDS ORDERED: HYDROcodone/APAP 5-325MG 1 EACH TAB PO STA (12:15)
[2023-06-17] MEDS ORDERED: ACET/COD 300 MG/30 MG STARTER PACK 6 TAB BTL PO STA (12:15)
[2023-06-17 12:37] VITALS: BP 160/69; PULSE 67; RESP 18; TEMP 97.9
== END 2023-06-17 13:28 | disposition home or self-care (01) ==
LOC: EC 11:10
DX: S42.202A Unspecified fracture of upper end of left humerus, initial encounter for closed fracture (principal); E11.9 Type 2 diabetes mellitus without complications; I11.0 Hypertensive heart disease with heart failure; I50.9 Heart failure, unspecified; K21.9 Gastro-esophageal reflux disease without esophagitis; I25.2 Old myocardial infarction; Z79.84 Long term (current) use of oral hypoglycemic drugs; Z79.4 Long term (current) use of insulin; Z79.82 Long term (current) use of aspirin; Z79.899 Other long term (current) drug therapy; Z86.73 Personal history of transient ischemic attack (TIA), and cerebral infarction without residual deficits; Z87.891 Personal history of nicotine dependence; W18.30XA Fall on same level, unspecified, initial encounter; Y93.K1 Activity, walking an animal
CPT/HCPCS: 99284

== ENCOUNTER 2023-06-28 10:04 | Emergency (ER) | payer MEDICARE ==
[2023-06-28] MEDS ORDERED: LORATADINE 10 MG TAB PO STA (10:29)
[2023-06-28] MEDS ORDERED: KETOTIFEN 0.025% OPHTH DROPS 5 ML BTL BOTH EYES STA (10:29)
--- NOTE | 2023-06-28 10:34 | ED ---
General Adult HPI - General Chief complaint: Recheck/Abnormal Lab/Rx Stated complaint: L Feet Swelling Time Seen by Provider: 06/28/23 10:20 Source: patient, RN notes reviewed Mode of arrival: ambulatory Limitations: no limitations - History of Present Illness Initial comments: Patient is a pleasant 68-year-old male presenting to the emergency Department with left leg swelling. Onset of symptoms was last day or 2. Patient states there may be some minimal swelling on the right as well. No Pain. No chest pain or dyspnea. Patient does have history of CHF. Patient states his eyes open and itchy last couple of days. No eye pain. No visual change. No headache. No upper a story symptoms. No eye redness. - Related Data Home Medications Medication Instructions Recorded Confirmed Aspirin 325 mg PO DAILY 12/28/13 05/30/20 Latanoprost Ophth [Xalatan 0.005%] 1 drop BOTH EYES HS 12/28/13 05/30/20 Timolol [Betimol 0.5% Ophth Soln] 1 drop LEFT EYE BID 12/28/13 05/30/20 Isosorbide Mononitrate [Isosorbide 30 mg PO DAILY 11/11/14 05/30/20 Mononitrate ER] atenoloL [Tenormin] 50 mg PO DAILY 11/11/14 05/30/20 Multivitamins, Thera [Multivitamin 1 tab PO DAILY 10/12/17 05/30/20 (formulary)] Simvastatin [Zocor] 80 mg PO HS 10/12/17 05/30/20 Omeprazole 20 mg PO DAILY 11/19/17 05/30/20 Ferrous Sulfate [Iron (65 MG 325 mg PO TID 09/13/18 05/30/20 Elemental)] allopurinoL [Zyloprim] 150 mg PO DAILY 09/13/18 05/30/20 glipiZIDE [Glucotrol] 10 mg PO AC-BID 09/13/18 05/30/20 Dextrose Chew [Glucose Chew Tab] 4 gm PO TID PRN 05/30/20 05/30/20 Dorzolamide HCl/Pf [Dorzolamide 2% 1 drop BOTH EYES BID 05/30/20 05/30/20 Eye Drop] Insulin Glargine [Lantus Vial] 50 unit SQ DAILY 05/30/20 05/30/20 [place]-3 Fatty Acids/Fish Oil [Fish 1 cap PO DAILY 05/30/20 05/30/20 Oil 1,000 mg Softgel] Potassium Chloride [K-Tab ER] 10 meq PO DAILY 05/30/20 05/30/20 Previous Rx's Medication Instructions Recorded Losartan [Cozaar] 50 mg PO DAILY tab 10/12/17 Furosemide [Lasix] 40 mg PO BID #30 tablet 09/14/18 Clopidogrel [Plavix] 75 mg PO DAILY #30 tab 05/31/20 Albuterol Sulfate [Proair Hfa] 1 - 2 puff INHALATION Q6HR PRN 04/18/21 #8.5 gm Allergies Allergy/AdvReac Type Severity Reaction Status Date / Time No Known Allergies Allergy Verified 06/28/23 10:15 Review of Systems ROS Statement: Those systems with pertinent positive or pertinent negative responses have been documented in the HPI. ROS Other: All systems not noted in ROS Statement are negative. Constitutional: Denies: fever Eyes: Reports: as per HPI. Denies: eye pain, vision change ENT: Denies: ear pain Respiratory: Denies: cough, dyspnea Cardiovascular: Reports: edema. Denies: chest pain Endocrine: Denies: fatigue Gastrointestinal: Denies: abdominal pain Genitourinary: Denies: dysuria Musculoskeletal: Denies: back pain Skin: Denies: rash Neurological: Denies: weakness Past Medical History Past Medical History: Heart Failure, CVA/TIA, Diabetes Mellitus, GERD/Reflux, Hypertension, Myocardial Infarction ([place]), Pneumonia, Prostate Disorder, Renal Disease Additional Past Medical History / Comment(s): UTI's; glaucoma, [place] 2004. Last Myocardial Infarction Date:: 2004 History of Any Multi-Drug Resistant Organisms: None Reported Past Surgical History: Heart Catheterization, Pacemaker Additional Past Surgical History / Comment(s): shonna cataract surgery, Past Anesthesia/Blood Transfusion Reactions: No Reported Reaction Type of Cardiac Device: Permanent Pacemaker Device Placement Date:: 12/2013 Past Psychological History: No Psychological Hx Reported Smoking Status: Former smoker Past Alcohol Use History: None Reported Past Drug Use History: None Reported - Past Family History Father Family Medical History: Coronary Artery Disease (CAD), Myocardial Infarction ([place]) Mother Family Medical History: Diabetes Mellitus General Exam Limitations: no limitations General appearance: alert, in no apparent distress Head exam: Present: normocephalic Eye exam: Present: normal appearance, PERRL, EOMI. Absent: conjunctival injection, periorbital swelling, periorbital tenderness ENT exam: Present: normal oropharynx Neck exam: Present: normal inspection Respiratory exam: Present: normal lung sounds bilaterally. Absent: rales Cardiovascular Exam: Present: regular rate, normal rhythm GI/Abdominal exam: Present: soft. Absent: tenderness Extremities exam: Present: pedal edema (+1 on the left, trace on the right). Absent: calf tenderness Neurological exam: Present: alert Psychiatric exam: Present: normal affect, normal mood Skin exam: Present: normal color Course Vital Signs 06/28/23 10:12 Temperature 98.3 F Pulse Rate 74 Respiratory 18 Rate Blood Pressure 180/63 O2 Sat by Pulse 100 Oximetry Medical Decision Making - Medical Decision Making Was pt. sent in by a medical professional or institution (OBDULIA Chahal, MEDIA PLANNER / BUYER, urgent care, hospital, or half-way...) When possible be specific @ -No Did you speak to anyone other than the patient for history (EMS, parent, family, police, friend...)? What history was obtained from this source @ -Family is present and helps confirm history including onset Did you review nursing and triage notes (agree or disagree)? Why? @ -I reviewed and agree with nursing and triage notes Were old charts reviewed (outside hosp., previous admission, EMS record, old EKG, old radiological studies, urgent care reports/EKG's, half-way records)? Report findings @ -No old charts were reviewed Differential Diagnosis (chest pain, altered mental status, abdominal pain women, abdominal pain men, vaginal bleeding, weakness, fever, dyspnea, syncope, headache, dizziness, GI bleed, back pain, seizure, CVA, palpatations, mental health, musculoskeletal)? @ -Differential Weakness: Hypoglycemia, shock, sepsis, hyponatremia, anemia, infection, [place], ETOH, adverse medicine reaction, overdose, stroke, this is not meant to be an all-inclusive list. EKG interpreted by me (3pts min.). @ -As above X-rays interpreted by me (1pt min.). @ -Chest x-ray does have concern for right mid lung nodule/mass CT interpreted by me (1pt min.). @ -None done U/S interpreted by me (1pt. min.). @ -No evidence of DVT What testing was considered but not performed or refused? (CT, X-rays, U/S, labs)? Why? @ -None What meds were considered but not given or refused? Why? @ -None Did you discuss the management of the patient with other professionals (pr ofessionals i.e. , PA, MEDIA PLANNER / BUYER, lab, RT, psych nurse, social insurance administrator, gallery assistant, teacher, public service officer, transplant case manager)? Give summary @ -No Was smoking cessation discussed for >3mins.? @ -No Was critical care preformed (if so, how long)? @ -No Were there social determinants of health that impacted care today? How? (Homelessness, low income, unemployed, alcoholism, drug addiction, transportation, low edu. Level, literacy, decrease access to med. care, fpc, rehab)? @ -No Was there de-escalation of care discussed even if they declined (Discuss DNR or withdrawal of care, Hospice)? DNR status @ -No What co-morbidities impacted this encounter? (DM, HTN, Smoking, COPD, CAD, Cancer, CVA, ARF, Chemo, Hep., AIDS, mental health diagnosis, sleep apnea, morbid obesity)? @ -None Was patient admitted / discharged? Hospital course, mention meds given and route, prescriptions, significant lab abnormalities, going to OR and other pertinent info. @ -Patient reevaluated and feeling much better. I itching has resolved. Patient and family updated on results and need for follow-up, especially updated on abnormal chest x-ray and need for further evaluation with this. Both demonstrate understanding Undiagnosed new problem with uncertain prognosis? @ -No Drug Therapy requiring intensive monitoring for toxicity (Heparin, Nitro, Insulin, Cardizem)? @ -No Were any procedures done? @ -No Diagnosis/symptom? @ -ALLERGIC conjunctivitis, leg edema, lung mass Acute, or Chronic, or Acute on Chronic? @ -Acute, acute, acute Uncomplicated (without systemic symptoms) or Complicated (systemic symptoms)? @ -default Side effects of treatment? @ -No Exacerbation, Progression, or Severe Exacerbation? @ -No Poses a threat to life or bodily function? How? (Chest pain, [place], [place], pneumonia, PE, COPD, DKA, ARF, appy, cholecystitis, CVA, Diverticulitis, Homicidal, Suicidal, threat to staff... and all critical care pts) @ -No Disposition Clinical Impression: Allergic conjunctivitis, Leg edema, Lung mass Disposition: HOME SELF-CARE Condition: Stable Instructions (If sedation given, give patient instructions): Allergies (ED), Leg Edema (ED) Additional Instructions: Please do follow-up with your primary care physician in the next day or 2 for recheck. Have primary care physician review chest x-ray done today and consider further testing or computed tomography scan regarding this. Return for chest pain or difficulty breathing, increased swelling, worsening or changing symptoms or other concerns. Is patient prescribed a controlled substance at d/c from ED?: No Referrals: [facility],Clinic [Primary Care Provider] - 1-2 days Time of Disposition: 12:53
--- NOTE | 2023-06-28 10:57 | XR ---
EXAMINATION TYPE: XR chest 2V DATE OF EXAM: 06/28/2023 10:44 AM CLINICAL INDICATION:Male, 78 years old with history of edema; [facility] COMPARISON: Chest radiographs from 04/18/2021.r TECHNIQUE: XR chest 2V Frontal and lateral views of the chest. FINDINGS: Lungs/Pleura: There is a masslike opacity projecting over the right lung base not seen on prior. This measures roughly 4.0 x 2.1 cm. Prominent interstitial lung markings are seen scattered throughout th e lungs with flattening of the diaphragm and increased lucency of the lung apices. No evidence of foc al consolidation, pneumothorax or pleural effusion. Pulmonary vascularity: Unremarkable. Heart/mediastinum: Cardiomediastinal silhouette is unremarkable. Atherosclerotic calcifications are seen in the aorta. Two lead cardiac conduction device overlying the left hemithorax with lead tips pr ojecting over the right ventricle and right atrium. Musculoskeletal: No acute osseous pathology. Other findings: None IMPRESSION: 1. Masslike opacity in the right lung base which is not seen on prior. Consider further evaluation wi cross-sectional imaging. 2. COPD changes.
--- NOTE | 2023-06-28 12:07 | US ---
EXAMINATION TYPE: US venous doppler duplex LE LT DATE OF EXAM: 06/28/2023 11:35 AM COMPARISON: 11/19/2017 CLINICAL INDICATION: Male, 78 years old with history of edema; Left leg swelling/ pt on blood thinner s for A-fib SIDE PERFORMED: Left TECHNIQUE: The lower extremity deep venous system is examined utilizing real time linear array sonog roderick with graded compression, doppler sonography and color-flow sonography. VESSELS IMAGED: Common Femoral Vein Deep Femoral Vein Greater Saphenous Vein * Femoral Vein Popliteal Vein Small Saphenous Vein * Proximal Calf Veins (* superficial vessels) Left Leg: Negative for DVT IMPRESSION: Grayscale, color doppler, spectral doppler imaging performed of the deep veins of the lo wer extremities. There is normal flow, compressibility, vascular waveforms.
[2023-06-28 13:19] VITALS: BP 166/78; PULSE 81; RESP 19; TEMP 98.5
== END 2023-06-28 13:03 | disposition home or self-care (01) ==
LOC: EC 10:04
DX: H10.13 Acute atopic conjunctivitis, bilateral (principal); R60.0 Localized edema; R91.8 Other nonspecific abnormal finding of lung field; E11.36 Type 2 diabetes mellitus with diabetic cataract; I11.0 Hypertensive heart disease with heart failure; I50.9 Heart failure, unspecified; K21.9 Gastro-esophageal reflux disease without esophagitis; I25.2 Old myocardial infarction; Z95.0 Presence of cardiac pacemaker; Z79.82 Long term (current) use of aspirin; Z79.84 Long term (current) use of oral hypoglycemic drugs; Z79.4 Long term (current) use of insulin; Z79.899 Other long term (current) drug therapy; Z86.73 Personal history of transient ischemic attack (TIA), and cerebral infarction without residual deficits; Z87.891 Personal history of nicotine dependence
CPT/HCPCS: 71046; 99284

== ENCOUNTER → 2023-07-11 | Outpatient (CLI) | payer MEDICARE, OTHER ==
--- NOTE | 2023-07-11 14:54 | CT ---
EXAMINATION TYPE: CT chest wo con DATE OF EXAM: 07/11/2023 COMPARISON: Radiograph 04/18/2021 HISTORY: 78-year-old male R91.8, ABNORMAL FINDING CXR TECHNIQUE: Contiguous axial scanning of the chest without IV contrast. Coronal/sagittal reconstructio ns performed. CT DLP: 482.5mGycm. Automatic exposure control utilized for a dose reduction. FINDINGS: Left anterior chest wall pacemaker generator with right atrial and right ventricular leads. Heart normal size without pericardial effusion. Extensive three-vessel coronary artery calcifications are present. Aorta normal caliber and bilateral petrosal branch anatomy with scattered [id number] prostatic calcifications throughout. Mildly enlarged caliber to the main right and left pulmonary arteries measuring up to 2.7 cm suggesti ng underlying pulmonary arterial hypertension. Calcified precarinal and hilar lymph nodes compatible prior granulomatous disease. No thoracic lympha denopathy by CT size criteria. Emphysematous change. Masslike areas of opacity in the subpleural regions of the posteromedial mid an d lower lung zone both sides with adjacent pleural thickening. Common talus findings are present. Fin dings favored to represent areas of rounded atelectasis measuring up to 4.9 x 2.3 cm. A couple punctate 3 mm pulmonary nodules in the right upper lobe. Visualized upper abdomen shows no gross abnormality. Bones: Soft tissue throughout the mid and lower thoracic spine. Surgical neck fracture of the proximal left humerus. Fracture also likely involves the greater tuber osity. Moderate degenerative joint space narrowing left glenohumeral joint. IMPRESSION: 1. COPD with minimal emphysematous change. 2. Masslike areas of subpleural consolidation posteromedial mid and lower lung on both sides measurin g up to 4.9 x 2.3 cm with adjacent smooth pleural thickening. Findings are favored to represent round ed atelectasis rather than neoplasm. Three-month follow-up CT chest to demonstrate stability. 3. Correlate for underlying pulmonary arterial hypertension. Coronary artery disease.
== END | disposition home or self-care (01) ==
LOC: RADCTMAIN 12:16
DX: J43.9 Emphysema, unspecified (principal); J44.9 Chronic obstructive pulmonary disease, unspecified; I25.10 Atherosclerotic heart disease of native coronary artery without angina pectoris; R91.8 Other nonspecific abnormal finding of lung field
CPT/HCPCS: 71250

== ENCOUNTER 2023-11-23 01:21 | Emergency (ER) | payer OTHER ==
[2023-11-23 01:25] LABS: Glucose,Whole Blood 241 mg/dL (70-110)
--- NOTE | 2023-11-23 01:31 | ED ---
General Adult HPI - General Chief complaint: Recheck/Abnormal Lab/Rx Stated complaint: Sugar check Time Seen by Provider: 11/23/23 01:28 Source: patient Mode of arrival: ambulatory Limitations: no limitations - History of Present Illness Initial comments: 78-year-old male requesting blood glucose check. Patient states that he normally checks his sugar 5 times a day, however he lost his glucometer this evening. He just wants his evening sugar check in order to give himself the proper amount of insulin. He is having no symptoms at this time. - Related Data Home Medications Medication Instructions Recorded Confirmed Aspirin 325 mg PO DAILY 12/28/13 05/30/20 Latanoprost Ophth [Xalatan 0.005%] 1 drop BOTH EYES HS 12/28/13 05/30/20 Timolol [Betimol 0.5% Ophth Soln] 1 drop LEFT EYE BID 12/28/13 05/30/20 Isosorbide Mononitrate [Isosorbide 30 mg PO DAILY 11/11/14 05/30/20 Mononitrate ER] atenoloL [Tenormin] 50 mg PO DAILY 11/11/14 05/30/20 Multivitamins, Thera [Multivitamin 1 tab PO DAILY 10/12/17 05/30/20 (formulary)] Simvastatin [Zocor] 80 mg PO HS 10/12/17 05/30/20 Omeprazole 20 mg PO DAILY 11/19/17 05/30/20 Ferrous Sulfate [Iron (65 MG 325 mg PO TID 09/13/18 05/30/20 Elemental)] allopurinoL [Zyloprim] 150 mg PO DAILY 09/13/18 05/30/20 glipiZIDE [Glucotrol] 10 mg PO AC-BID 09/13/18 05/30/20 Dextrose Chew [Glucose Chew Tab] 4 gm PO TID PRN 05/30/20 05/30/20 Dorzolamide HCl/Pf [Dorzolamide 2% 1 drop BOTH EYES BID 05/30/20 05/30/20 Eye Drop] Insulin Glargine [Lantus Vial] 50 unit SQ DAILY 05/30/20 05/30/20 Sunburst-3 Fatty Acids/Fish Oil [Fish 1 cap PO DAILY 05/30/20 05/30/20 Oil 1,000 mg Softgel] Potassium Chloride [K-Tab ER] 10 meq PO DAILY 05/30/20 05/30/20 Previous Rx's Medication Instructions Recorded Losartan [Cozaar] 50 mg PO DAILY tab 10/12/17 Furosemide [Lasix] 40 mg PO BID #30 tablet 09/14/18 Clopidogrel [Plavix] 75 mg PO DAILY #30 tab 05/31/20 Albuterol Sulfate [Proair Hfa] 1 - 2 puff INHALATION Q6HR PRN 04/18/21 #8.5 gm Allergies Allergy/AdvReac Type Severity Reaction Status Date / Time No Known Allergies Allergy Verified 06/28/23 10:15 Review of Systems ROS Statement: Those systems with pertinent positive or pertinent negative responses have been documented in the HPI. ROS Other: All systems not noted in ROS Statement are negative. Past Medical History Past Medical History: Heart Failure, CVA/TIA, Diabetes Mellitus, GERD/Reflux, Hypertension, Myocardial Infarction (NC), Pneumonia, Prostate Disorder, Renal Disease Additional Past Medical History / Comment(s): UTI's; glaucoma, NC 2004. Last Myocardial Infarction Date:: 2004 History of Any Multi-Drug Resistant Organisms: None Reported Past Surgical History: Heart Catheterization, Pacemaker Additional Past Surgical History / Comment(s): shonna cataract surgery, Past Anesthesia/Blood Transfusion Reactions: No Reported Reaction Type of Cardiac Device: Permanent Pacemaker Device Placement Date:: 12/2013 Past Psychological History: No Psychological Hx Reported Smoking Status: Former smoker Past Alcohol Use History: None Reported Past Drug Use History: None Reported - Past Family History Father Family Medical History: Coronary Artery Disease (CAD), Myocardial Infarction (NC) Mother Family Medical History: Diabetes Mellitus General Exam - General Exam Comments Initial Comments: Visual Physical Exam Vital signs reviewed General: Well-appearing, nontoxic, no acute distress. Head: Normocephalic, atraumatic Eyes: PERRLA, EOMI ENT: Airway patent Chest: Nonlabored breathing Skin: No visual rash, normal skin tone Neuro: Alert and oriented 3 Musculoskeletal: No gross abnormalities Limitations: no limitations Course Vital Signs 11/23/23 01:22 Temperature 98.6 F Pulse Rate 81 Respiratory 16 Rate Blood Pressure 136/84 O2 Sat by Pulse 96 Oximetry Medical Decision Making - Medical Decision Making Was pt. sent in by a medical professional or institution (, PA, [employer], urgent care, hospital, or group home...) When possible be specific @ -No Did you speak to anyone other than the patient for history (EMS, parent, family, police, friend...)? What history was obtained from this source @ -No Did you review nursing and triage notes (agree or disagree)? Why? @ -I reviewed and agree with nursing and triage notes Were old charts reviewed (outside hosp., previous admission, EMS record, old EKG, old radiological studies, urgent care reports/EKG's, group home records)? Report findings @ -No old charts were reviewed Differential Diagnosis (chest pain, altered mental status, abdominal pain women, abdominal pain men, vaginal bleeding, weakness, fever, dyspnea, syncope, headache, dizziness, GI bleed, back pain, seizure, CVA, palpatations, mental health, musculoskeletal)? @ -Not applicable EKG interpreted by me (3pts min.). @ -As above X-rays interpreted by me (1pt min.). @ -None done CT interpreted by me (1pt min.). @ -None done U/S interpreted by me (1pt. min.). @ -None done What testing was considered but not performed or refused? (CT, X-rays, U/S, labs)? Why? @ -None What meds were considered but not given or refused? Why? @ -Insulin was considered, however the patient states that he has his own insulin that he will be taking Did you discuss the management of the patient with other professionals (professionals i.e. , PA, [employer], lab, RT, psych nurse, social media analyst, fish hatchery assistant, teacher, risk officer, dependency case manager)? Give summary @ -No Was smoking cessation discussed for >3mins.? @ -No Was critical care preformed (if so, how long)? @ -No Were there social determinants of health that impacted care today? How? (Homelessness, low income, unemployed, alcoholism, drug addiction, transportation, low edu. Level, literacy, decrease access to med. care, half-way, rehab)? @ -No Was there de-escalation of care discussed even if they declined (Discuss DNR or withdrawal of care, Hospice)? DNR status @ -No What co-morbidities impacted this encounter? (DM, HTN, Smoking, COPD, CAD, Cancer, CVA, ARF, Chemo, Hep., AIDS, mental health diagnosis, sleep apnea, morbid obesity)? @ -Diabetes Was patient admitted / discharged? Hospital course, mention meds given and route, prescriptions, significant lab abnormalities, going to OR and other pertinent info. @ -78-year-old male presenting for blood glucose check. He lost his glucometer and just wants his evening measurement. He is asymptomatic at this time. His blood sugar is 241. The patient states that he would prefer to take his own insulin at home tonight. I believe this is reasonable. Discharged home. Follow-up with PCP. Report back to ER with any new or worsening symptoms. Discussed return parameters and answered all questions. Patient conveyed verbal understanding and agreed to the plan. I discussed this case in detail with my attending Dr. Cameron Undiagnosed new problem with uncertain prognosis? @ -No Drug Therapy requiring intensive monitoring for toxicity (Heparin, Nitro, Insulin, Cardizem)? @ -No Were any procedures done? @ -No Diagnosis/symptom? @ -Encounter for blood glucose check Acute, or Chronic, or Acute on Chronic? @ -Acute Uncomplicated (without systemic symptoms) or Complicated (systemic symptoms)? @ -Uncomplicated Side effects of treatment? @ -No Exacerbation, Progression, or Severe Exacerbation? @ -No Poses a threat to life or bodily function? How? (Chest pain, USA, NC, pneumonia, PE, COPD, DKA, ARF, appy, cholecystitis, CVA, Diverticulitis, Homicidal, Suicidal, threat to staff... and all critical care pts) @ -No - Lab Data Lab Results 11/23/23 Range/Units 01:24 POC Glucose (mg/dL) 241 H (70-110) mg/dL POC Glu Print Designer ID Rika Duarte Disposition Clinical Impression: Blood glucose elevated Disposition: HOME SELF-CARE Condition: Good Additional Instructions: Follow-up with PCP. Report back to ER with any new or worsening symptoms. Is patient prescribed a controlled substance at d/c from ED?: No Referrals: [facility],Clinic [Primary Care Provider] - 1-2 days Time of Disposition: 01:31
[2023-11-23 01:38] VITALS: BP 136/84; PULSE 81; RESP 16; TEMP 98.6
== END 2023-11-23 01:40 | disposition home or self-care (01) ==
LOC: EC 01:21
DX: R73.9 Hyperglycemia, unspecified (principal); Z87.891 Personal history of nicotine dependence
CPT/HCPCS: 36415; 99283

== ENCOUNTER → 2024-05-17 | Outpatient (CLI) | payer OTHER ==
--- NOTE | 2024-05-17 10:46 | CT ---
EXAMINATION TYPE: CT chest wo con DATE OF EXAM: 05/17/2024 COMPARISON: 10/21/2023 HISTORY: abnormal findings of lung field CT DLP: 412.[address] of the chest was performed with lung and mediastinal window settings submitted. The la ck of contrast limits evaluation of the vascular, mediastinal and parenchymal structures including th e upper abdomen. LUNGS: Masslike densities at the lung bases appear unchanged with associated disorganized pulmonary p arenchyma felt to reflect rounded atelectasis. Mild associated basilar pleural-parenchymal thickenin g. No new nodules or masses. No focal consolidation has occurred in the interval. MEDIASTINUM/JACQUELINE: Thoracic aorta is of normal caliber with limited evaluation given lack of contrast . The heart is enlarged. No evidence for mediastinal mass. No lymph nodes greater than 1cm. UPPER ABDOMEN: No significant abnormality is seen. OTHER: No significant other abnormality. IMPRESSION: 1. Stable features of the basilar rounded atelectasis. Stability over a two-year timeframe should be documented radiographically. [facility], , 05/17/2024 10:43 AM
== END | disposition home or self-care (01) ==
LOC: RADCTMAIN 09:36
PROVIDERS: ATTEND Family Medicine
DX: R91.8 Other nonspecific abnormal finding of lung field
CPT/HCPCS: 71250

== ENCOUNTER → 2024-07-21 | Day surgery (SDC) | payer MEDICARE, OTHER ==
[2024-07-20 09:31] VITALS: BMI 23.7
[~2024-07-21] MED LIST: SODIUM CHLORIDE 0.9% 1,000 ML IV SCH
[2024-07-21] MEDS: IV FLUID CONTINUATION 1,000 ML IV ONE ×2 (06:25→07:23)
[2024-07-21] MEDS: SODIUM CHLORIDE 0.9% 1,000 ML IV SCH (06:25)
[2024-07-21 06:37] LABS: Basophils % (A) 0 %; Eosinophils # (A) 0.6 k/uL (0-0.7); Eosinophils % (A) 6 %; HGB 12.5 gm/dL (13.0-17.5); Hypochromasia Slight; Lymphocytes # (A) 1.8 k/uL (1.0-4.8); Lymphocytes % (A) 20 %; MCH 28.8 pg (25.0-35.0); MCHC 31.3 g/dL (31.0-37.0); Mean Platelet Volume 8.5; Monocytes # (A) 0.6 k/uL (0-1.0); Monocytes % (A) 6 %; Neutrophils # (A) 6.2 k/uL (1.3-7.7); Neutrophils % (A) 66 %; Platelet Count 216 k/uL (150-450); RBC 4.35 m/uL (4.30-5.90); RDW 14.3 % (11.5-15.5); WBC 9.4 k/uL (3.8-10.6)
[2024-07-21 06:45] LABS: African American GFR (CKD) 82 (>60 ml/min/1.73 sqM); Anion Gap 5 mmol/L; Blood Urea Nitrogen 17 mg/dL (9-20); Calcium 8.8 mg/dL (8.4-10.2); Carbon Dioxide 25 mmol/L (22-30); Chloride 108 mmol/L (98-107); Glucose 134 mg/dL (74-99); Non-African American GFR(CKD) 71 (>60 ml/min/1.73 sqM); Potassium 3.5 mmol/L (3.5-5.1); Sodium 138 mmol/L (137-145)
[2024-07-21] MEDS: LOSARTAN 50 MG TAB PO STA (06:50)
[2024-07-21] MEDS: MIDAZOLAM 2 MG/2 ML VIAL IVP ONE (08:01)
[2024-07-21] MEDS: fentaNYL (PF) 50 MCG/ML 2 ML AMP IVP ONE (08:02)
[2024-07-21] MEDS: LIDOCAINE 1% INJ 10MG/ML (20 ML MDV) SQ ONE (08:06)
[2024-07-21 08:18] VITALS: TEMP 98.2
[2024-07-21] MEDS: ceFAZolin 1 GM in SODIUM CHLORIDE 0.9% IRRIG BTL 250 ML IRRIGATION PRN (08:30)
[2024-07-21] MEDS: ONDANSETRON 4 MG/2 ML VIAL IVP ONE (08:45)
[2024-07-21] MEDS: ONDANSETRON 4 MG/2 ML VIAL IVP STA (09:11)
--- NOTE | 2024-07-21 14:34 | P.PCN ---
Description of Procedure: CARDIOLOGY PROCEDURE NOTE Junior Designer: Dr. Ethan Markham Procedure performed: Dual chamber permanent pacemaker generator change Site: Left subclavian Indications: Sick Sinus Syndrome Complications: None Blood Loss: Minimal Description of Procedure: After the risks, benefits, and alternatives of the above-mentioned procedure was explained in detail with the patient, informed consent was obtained. The patient was taken to the cardiac catheterization suite where the left subclavian area was sterily prepped and draped in the usual fashion. Patient was given IV Versed and fentanyl for sedation. The skin over the existing pulse generator was infiltrated with lidocaine. An incision was made in the skin and was deepe navjot until the pectoral fascia was exposed. Hemostasis was obtained. The existing pulse generator was pulled out of the pocket. The leads were disconnected and were checked for thresholds. The existing leads were then inserted into the appropriate position into the new generator. They were then secured with the setscrew provided. The leads and generator were inserted into the pocket with the leads posterior. The subcutaneous tissue was approximated utilizing #2.0 and 3.0 vicryl in an interrupted stitch fashion. The dermal layer was approximated utilizing #4.0 vicryl. The area was cleansed with sterile saline and dried. A sterile 4x4 dressing was applied and the patient was transferred to the post catheterization holding area in stable and satisfactory condition. The patient tolerated the procedure well. Generator Data Digestion Operator: [employer] Brand: [id number] Anna XT DR MRI Model #: [id number] Serial#: [id number] Right Atrial Bipolar Lead Data: Type: Active fixation lead Digestion Operator: [employer] Model#: 5076-45 Serial Number: [id number] Right Ventricular Bipolar Lead Data: Type: Active fixation lead Digestion Operator: [employer] Model #: 5076-52 Serial #: [id number] Stimulation Thresholds: Right atrial bipolar lead pacing and sensing thresholds Voltage: Afib Impedance: 437 ohms P-wave sensin.8 mV Right Ventricular bipolar lead pacing and sensing thresholds Pulse Width: 0.4ms Voltage: 0.75 volts Impedance: 380 ohms R-wave sensin.8 mV Parameter Setting: Pacing mode is AAIR<=>DDDR Lower rate 60 bpm Upper rate 130 bpm Impressions: 1. Successful generator change of a dual chamber permanent pacemaker in the left pectoral site. Plan: 1. Routine post procedure care will be instituted as well as outpatient follow- up surveillance.
[2024-07-21] MEDS: ACETAMINOPHEN IV (For NPO) 1,000 MG in EMPTY BAG 1 BAG IVPB STA (18:41)
[2024-07-21 19:26] VITALS: RESP 16
[2024-07-21 19:29] VITALS: PULSE 74
[2024-07-21 19:36] VITALS: BP 168/72
== END ==
LOC: CATHEP 05:34
PROVIDERS: ATTEND Internal Medicine
DX: Z45.010 Encounter for checking and testing of cardiac pacemaker pulse generator [battery] (principal); I49.5 Sick sinus syndrome; I10 Essential (primary) hypertension; E11.9 Type 2 diabetes mellitus without complications; E78.5 Hyperlipidemia, unspecified; I48.0 Paroxysmal atrial fibrillation; N28.9 Disorder of kidney and ureter, unspecified; I65.23 Occlusion and stenosis of bilateral carotid arteries; Z79.84 Long term (current) use of oral hypoglycemic drugs; Z86.73 Personal history of transient ischemic attack (TIA), and cerebral infarction without residual deficits; Z79.899 Other long term (current) drug therapy; Z79.82 Long term (current) use of aspirin; Z79.01 Long term (current) use of anticoagulants
CPT/HCPCS: 33228; 80048; 85025; C1785; J2250; J0690; J2405; J2003; J3010

== ENCOUNTER → 2025-01-03 | Outpatient (CLI) | payer MEDICARE, OTHER ==
--- NOTE | 2025-01-03 08:49 | CT ---
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 Confusion TECHNIQUE: Examination was done in axial plane without intravenous contrast. Coronal and sagittal r econstructions performed. CT DLP: 1090.4 mGycm, Automated exposure control for dose reduction was used. FINDINGS: There is no evidence of acute intracranial hemorrhage, acute ischemic changes, mass, mass-effect, or extra-axial fluid collection. There is no effacement of cerebral sulci or basal subarachnoid cister ns. There is no hydrocephalus. There is no midline shift. Valdez-white matter distinction is preserv ed. New patchy white matter hypodensity and encephalomalacia lateral right frontal lobe, right insular co rtex, and right frontoparietal junction. Mild volume loss overlying the bilateral cerebral convexitie s and mild ventricular prominence. Old lacunar infarcts bilateral basal ganglia. Benign punctate calcifications in the basal ganglia. At herosclerotic calcifications carotid siphons. Prominent atherosclerotic calcifications of the V3 segm ent and V4 junction of the vertebral arteries. Rightward nasal septal deviation. Trace mucosal thickening floors of the maxillary sinuses. Mastoid a ir cells well pneumatized orbits and globes are intact. IMPRESSION: Now chronic appearing white matter and cortical infarcts lateral right frontal lobe, right insular co rtex, and right frontoparietal junction, new from 05/30/2020. Mild age-related cerebral atrophy. No acute intracranial abnormality seen. [facility], , 01/03/2025 8:47 AM
== END | disposition home or self-care (01) ==
LOC: RADCTMAIN 08:23
PROVIDERS: ATTEND Psychiatry & Neurology Neurology
DX: G44.51 Hemicrania continua (principal); R90.82 White matter disease, unspecified; G31.1 Senile degeneration of brain, not elsewhere classified; Z86.73 Personal history of transient ischemic attack (TIA), and cerebral infarction without residual deficits
CPT/HCPCS: 70450